=== PATIENT | male | born 1970 | race Caucasian/White ===

== ENCOUNTER → 2017-01-19 | Outpatient (CLI) | payer BC ==
[~2017-01-19] MED LIST: ASPI-113 PO; ASPI325T39 PO; ASPI325T60 PO; CYCL5TAB PO; LEVO150T PO; LEVO150T9 PO; LEVO175T PO; LEVO175T3 PO; LEVO50TA PO; LEVO75CA2 PO; METH4PAK PO; METO25TA3 PO; OMEP20TA PO; OMEP40CA41 PO; PANT40TA PO; SUCR1TAB PO; SYN100 PO; THY30 PO; ZNTT/150 PO
--- NOTE | 2017-01-19 10:54 | DIAGNOSTIC IMAGING REPORT ---
GI SERIES W/AIR ROUTINE CLINICAL HISTORY: Atypical CHEST Pain, light HEADEDNESS AND GERD COMPARISON STUDY: Abdomen and pelvis CT 11/29/2012. FLUOROSCOPY TIME: 3.3 minutes. 24 images submitted. FINDINGS: The patient swallowed barium without difficulty. The esophagus is normal in course and caliber. No hiatus hernia. No gastroesophageal reflux. No gastric ulcerations. The duodenal bulb and duodenal C sweep are within normal limits. Mild esophageal dysmotility. IMPRESSION: Mild esophageal dysmotility. Otherwise, normal upper GI series. Electronically signed by: Jerald Lee M.D. 01/19/2017 10:52 AM Dictated Date/Time: 01/19/2017 10:50 AM
== END | disposition home or self-care (01) ==
LOC: C.RAD 10:15
PROVIDERS: ATTEND Family Medicine
DX: R07.9 Chest pain, unspecified (principal); R42 Dizziness and giddiness; K21.9 Gastro-esophageal reflux disease without esophagitis

== ENCOUNTER 2017-01-24 14:17 | Observation (INO) | payer BC ==
[~2017-01-24] VITALS: Ht 185.4 cm; Wt 83.6 kg
[~2017-01-24 14:17] MED LIST changes: -ASPI325T39 PO; -ASPI325T60 PO; -CYCL5TAB PO; -LEVO150T PO; -LEVO150T9 PO; -LEVO175T PO; -LEVO175T3 PO; -LEVO50TA PO; -LEVO75CA2 PO; -METH4PAK PO; -METO25TA3 PO; -OMEP20TA PO; -OMEP40CA41 PO; -PANT40TA PO; -SUCR1TAB PO; -SYN100 PO; -THY30 PO; -ZNTT/150 PO
[2017-01-24 16:16] LABS: BASO % 0.4 %; BASO ABS # 0.03 K/uL (0-0.2); COMPLETE YES; EOS % 1.3 %; HEMATOCRIT 46.2 % (42-52); IG% 0.1 %; LYMPH % 27.3 %; LYMPH ABS # 2.23 K/uL (1.2-3.4); MEAN CELL VOLUME 86.5 fL (80-100); MEAN CORPUSCULAR HEMOGLOBIN 32.2 pg (25-34); MEAN CORPUSCULAR HGB CONC 37.2 g/dl (32-36); MEAN PLATELET VOLUME 11.2 fL (7.4-10.4); MONO % 2.4 %; NEUT % 68.5 %; PLATELET COUNT 190 K/uL (130-400); RED BLOOD COUNT 5.34 M/uL (4.7-6.1); WHITE BLOOD COUNT 8.17 K/uL (4.8-10.8)
--- NOTE | 2017-01-24 16:17 | DIAGNOSTIC IMAGING REPORT ---
CHEST ONE VIEW PORTABLE CLINICAL HISTORY: Chest pain. COMPARISON STUDY: Chest radiograph November 29, 2012. FINDINGS: Lung volumes are normal. Lungs are clear. There is no pneumothorax or pleural effusion. Cardiac size is normal. Mediastinal contours are normal. There is no evidence of pulmonary edema. IMPRESSION: No acute cardiopulmonary findings. Electronically signed by: Radu Gould M.D. 01/24/2017 4:16 PM Dictated Date/Time: 01/24/2017 4:14 PM
[2017-01-24 16:32] LABS: PARTIAL THROMBOPLASTIN RATIO 1.1; PROTHROMBIN TIME (PATIENT) 11.2 SECONDS (9.0-12.0)
[2017-01-24 16:34] LABS: ALT/SGPT 35 U/L (12-78); BLOOD UREA NITROGEN 10 mg/dl (7-18); BUN/CREATININE RATIO 8.3 (10-20); CALCIUM 9.1 mg/dl (8.5-10.1); CARBON DIOXIDE 25 mmol/L (21-32); CHLORIDE 104 mmol/L (98-107); GLUCOSE 89 mg/dl (70-99); POTASSIUM 3.9 mmol/L (3.5-5.1); SODIUM 137 mmol/L (136-145)
[2017-01-24] MEDS ORDERED: LEVO150T PO (16:38)
[2017-01-24] MEDS ORDERED: CYCL5TAB PO (16:38)
[2017-01-24] MEDS ORDERED: METO25TA3 PO (16:38)
[2017-01-24 16:45] LABS: ALKALINE PHOSPHATASE 92 U/L (45-117); AST/SGOT 21 U/L (15-37); CKMB/CK RATIO 0.8 (0-3.0)
[2017-01-24] MEDS ORDERED: ASPIRIN 81 MG CHEW PO STA (16:49)
--- NOTE | 2017-01-24 19:59 | History and Physical ---
History & Physical Date & Time of Service: Jan 24, 2017 at 18:39 Chief Complaint: Chest Pains, Irregular Heart/Disoriented, Dizzy Primary Care Physician: Devika Ballesteros PA-C History of Present Illness Source: patient, family Patient is a 46 year old male with a past medical history of hypothyroidism and palpitations that presents to the ED with a 2 week history of chest pain. 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 Since then he has had intermittent sharp anterior shoulder pain. 2 days after that incident, he driving home and he had chest pain accompanied by numbness over his nose and lips. He pulled over, got out of the truck and his heart started racing, felt like he was going to pass out. Needed to be held up by state police so he didn't pass out. From there he was taken to a hospital in [place] where they did a workup for acute chest pain including EKG, Chest Xray, and CT scan. Workup was negative and they discharged the patient on Tramadol for muscle pain (later switched to Flexeril by his PCP). Since this episode he has had this intermittent left sided chest and shoulder pain, with episodes of abdominal pain. He describes episodes of fatigue, dizziness, and feeling "like he's drunk". The episodes of chest pain usually last and hour and afterwards his shoulder stays sore and has a burning sensation. The chest pain is 7/10, sharp and radiates to his left arm. The patient has also no experienced any episodes of palpitations since being started on Toprolol XL by his PCP. Patient also explains that he has a similar episode of chest pain, palpitations, and dizziness 4 years ago that was worked up but resolved on his own. Family History No pertinent family history Social History Smoking Status: Current Every Day Smoker Occupational Status: employed Allergies Coded Allergies: Penicillins (Unverified Allergy, Unknown, ., 11/29/12) Home Medications Scheduled Aspirin Enteric Coated (Ecotrin Or Generic), 325 MG PO PRN UD Cyclobenzaprine Hcl (Flexeril), 5 MG PO PRN UD Levothyroxine Sodium (Synthroid), 150 MCG PO DAILY Metoprolol Succinate (Toprol Xl), 25 MG PO DAILY Review of Systems Constitutional: + fatigue, No chills, No fever, No weight loss ENT: No hearing loss, No tinnitus Respiratory: No cough, No shortness of breath, No sputum, No wheezing Cardiovascular: + chest pain, No edema, No palpitations Abdomen: + nausea, + pain, No GI bleeding, No constipation, No diarrhea, No vomiting Musculoskeletal: + joint pain (Left shoulder pain), + muscle pain Endocrine: + fatigue Integumentary: No rash Physical Exam Vital Signs Date Time Temp Pulse Resp B/P Pulse Ox O2 Delivery O2 Flow Rate FiO2 01/24/17 17:06 68 18 128/80 96 01/24/17 16:21 72 01/24/17 15:59 97 Room Air 01/24/17 15:53 74 20 137/86 98 Room Air 01/24/17 14:24 36.5 71 18 150/90 98 Room Air General Appearance: WD/WN, no apparent distress Respiratory/Chest: lungs clear, normal breath sounds, + pertinent finding ( Left sided tenderness to palpation of the chest) Cardiovascular: regular rate, rhythm, no edema, no gallop Abdomen/GI: normal bowel sounds, soft, + tenderness (LUQ tenderness), + mass ( questionable nodule/mass that is mobile and soft in LUQ) Back: normal inspection, no CVA tenderness Extremities/Musculoskelatal: normal inspection, no calf tenderness, + pertinent finding Neurologic/Psych: alert, oriented x 3 Diagnostics Laboratory Results Results Past 24 Hours Test 01/24/17 15:56 Range/Units White Blood Count 8.17 4.8-10.8 K/uL Red Blood Count 5.34 4.7-6.1 M/uL Hemoglobin 17.2 14.0-18.0 g/dL Hematocrit 46.2 42-52 % Mean Corpuscular Volume 86.5 80-100 fL Mean Corpuscular Hemoglobin 32.2 25-34 pg Mean Corpuscular Hemoglobin Concent 37.2 32-36 g/dl Platelet Count 190 130-400 K/uL Mean Platelet Volume 11.2 7.4-10.4 fL Neutrophils (%) (Auto) 68.5 % Lymphocytes (%) (Auto) 27.3 % Monocytes (%) (Auto) 2.4 % Eosinophils (%) (Auto) 1.3 % Basophils (%) (Auto) 0.4 % Neutrophils # (Auto) 5.59 1.4-6.5 K/uL Lymphocytes # (Auto) 2.23 1.2-3.4 K/uL Monocytes # (Auto) 0.20 0.11-0.59 K/uL Eosinophils # (Auto) 0.11 0-0.5 K/uL Basophils # (Auto) 0.03 0-0.2 K/uL RDW Standard Deviation 42.0 36.4-46.3 fL RDW Coefficient of Variation 13.3 11.5-14.5 % Immature Granulocyte % (Auto) 0.1 % Immature Granulocyte # (Auto) 0.01 0.00-0.02 K/uL Prothrombin Time 11.2 9.0-12.0 SECONDS Prothromb Time International Ratio 1.0 0.9-1.1 Activated Partial Thromboplast Time 29.8 21.0-31.0 SECONDS Partial Thromboplastin Ratio 1.1 D-Dimer < 190 0-500 ug/L FEU Sodium Level 137 136-145 mmol/L Potassium Level 3.9 3.5-5.1 mmol/L Chloride Level 104 98-107 mmol/L Carbon Dioxide Level 25 21-32 mmol/L Anion Gap 8.0 3-11 mmol/L Blood Urea Nitrogen 10 7-18 mg/dl Creatinine 1.20 0.60-1.40 mg/dl Est Creatinine Clear Calc Drug Dose 87.8 ml/min Estimated GFR () 84.1 Estimated GFR (Non- 72.6 BUN/Creatinine Ratio 8.3 10-20 Random Glucose 89 70-99 mg/dl Calcium Level 9.1 8.5-10.1 mg/dl Total Bilirubin 0.5 0.2-1 mg/dl Direct Bilirubin 0.1 0-0.2 mg/dl Aspartate Amino Transf (AST/SGOT) 21 15-37 U/L Alanine Aminotransferase (ALT/SGPT) 35 12-78 U/L Alkaline Phosphatase 92 45-117 U/L Total Creatine Kinase 233 39-308 U/L Creatine Kinase MB 1.9 0.5-3.6 ng/ml Creatine Kinase MB Ratio 0.8 0-3.0 Troponin I < 0.015 0-0.045 ng/ml Total Protein 8.0 6.4-8.2 gm/dl Albumin 4.4 3.4-5.0 gm/dl Lipase 75 73-393 U/L Thyroid Stimulating Hormone (TSH) 5.740 0.300-4.500 uIu/ml CXR normal Normal EKG Impression Assessment and Plan Patient is a 46 year old male that presents with a 2 week history of chest pain 1) Stable Angina - EKG show no acute abnormalities - Troponin wnl - CXR no acute abnormalities - Consult cardiology for possible cardiac stress echo tomorrow morning 2) Palpitations - Toprolol XL 25mg 3) Abdominal Pain - Patient was worked up in the past with Abdominal CT, EGD, Abdominal US with no acute abnormalities - Attempt to obtain records to review these imaging studies 4) Hypothyroidism - Synthroid 150 mcg 5) DVT - SCD Level of Care Telemetry Resuscitation Status FULL RESUSCITATION VTE Prophylaxis VTE Risk Assessment Done? Y/N: Yes Risk Level: Moderate Given or contraindicated: SCD's
[2017-01-24] MEDS ORDERED: ONDANSETRON INJ 2 MG/ML 2 ML VIAL IV PRN (20:00)
[2017-01-24] MEDS ORDERED: ACETAMINOPHEN 325 MG TAB PO PRN (20:00)
[2017-01-24 21:40] VITALS: BP 149/82; PULSE 71; TEMP 36.3; O2SAT 97; Ht 185.4 cm; Wt 83.6 kg
--- NOTE | 2017-01-24 21:54 | EMERGENCY ROOM VISIT NOTE ---
History Report prepared by Eleni: Maren De Santiago Under the Supervision of: Dr. Amaury Calloway M.D. First contact with patient: 15:52 Chief Complaint: CHEST PAIN Stated Complaint: CHEST PAINS, IRREGULAR HEART/DISORIENTED, DIZZY Nursing Triage Summary: Triage note: pt ambulatory to triage. Pt reports feeling lightheaded x 2 weeks and has had out pt testing. pt reports chest pain x 2 weeks. History of Present Illness The patient is a 46 year old male who presents to the Emergency Room with complaints of intermittent left sided chest pain that began two weeks ago. He currently rates his discomfort as a 9/10 in severity. The patient states that today he felt lightheaded for most of the day and additionally noticed left sided chest pain that lasted several hours. He states that the pain radiated to his left arm. The patient describes his discomfort as a burning pain. He additionally associates nausea, eye pain, nose numbness, and left sided abdominal pain with his symptoms today, noting a lump to the left side of his abdomen. The patient denies any shortness of breath or increased pain with breathing. He states that he has been being worked up for abdominal issues with his PCP. The patient states that he has had an x-ray, ultrasound, endoscopy, and an EKG done so far that have all bee normal. 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 Pt denies LOC, headache, fevers, chills, diaphoresis, visual changes, neck pain, breathing difficulties, vomiting, abdominal pain, back pain, melena, hematochezia, urinary symptoms, weakness, lymphadenopathy, rash, or other complaints. Source of History: patient Onset: two weeks ago Position: chest (left) Symptom Intensity: 9/10 Quality: burning Timing: intermittent Associated Symptoms: + abdominal pain, + nausea, No SOB Note: Associated Symptoms: lightheadedness, eye pain, nose numbness Review of Systems See HPI for pertinent positives and negatives. A total of ten systems were reviewed and were otherwise negative. Past Medical & Surgical Medical Problems: (1) Chest pain (2) chest pain (3) Stomach problems Family History No pertinent family history Social History Smoking Status: Current Every Day Smoker Alcohol Use: none Marital Status: single Housing Status: lives with family Occupation Status: employed Current/Historical Medications Scheduled Aspirin Enteric Coated (Ecotrin Or Generic), 325 MG PO PRN UD Cyclobenzaprine Hcl (Flexeril), 5 MG PO PRN UD Levothyroxine Sodium (Synthroid), 150 MCG PO DAILY Metoprolol Succinate (Toprol Xl), 25 MG PO DAILY Allergies Coded Allergies: Penicillins (Unverified Allergy, Unknown, ., 11/29/12) Physical Exam Vital Signs Date Time Temp Pulse Resp B/P Pulse Ox O2 Delivery O2 Flow Rate FiO2 01/24/17 20:49 63 01/24/17 20:46 80 24 105/78 98 Room Air 01/24/17 19:00 73 21 142/104 97 Room Air 01/24/17 17:06 68 18 128/80 96 01/24/17 16:21 72 01/24/17 15:59 97 Room Air 01/24/17 15:53 74 20 137/86 98 Room Air 01/24/17 14:24 36.5 71 18 150/90 98 Room Air Physical Exam GENERAL: Awake, alert, well-appearing, in no distress HENT: Normocephalic, atraumatic. Oropharynx unremarkable. EYES: Normal conjunctiva. Sclera non-icteric. NECK: Supple. No nuchal rigidity. FROM. No JVD. RESPIRATORY: Clear to auscultation. CARDIAC: Regular rate, normal rhythm. Extremities warm and well perfused. Pulses equal. ABDOMEN: Epigastric abdominal tenderness to palpation. Soft, non-distended. No rebound or guarding. No masses. RECTAL: Deferred. MUSCULOSKELETAL: Chest examination reveals no tenderness. The back is symmetrical on inspection without obvious abnormality. There is no CVA tenderness to palpation. No joint edema. LOWER EXTREMITIES: Calves are equal size bilaterally and non-tender. No edema. No discoloration. NEURO: Normal sensorium. No sensory or motor deficits noted. SKIN: No rash or jaundice noted. Medical Decision & Procedures ER Provider Diagnostic Interpretation: X ray results as stated below per my interpretation and radiologist interpretation. Other radiology results as stated below per my review and radiologist interpretation CHEST ONE VIEW PORTABLE CLINICAL HISTORY: Chest pain. COMPARISON STUDY: Chest radiograph November 29, 2012. FINDINGS: Lung volumes are normal. Lungs are clear. There is no pneumothorax or pleural effusion. Cardiac size is normal. Mediastinal contours are normal. There is no evidence of pulmonary edema. IMPRESSION: No acute cardiopulmonary findings. Electronically signed by: Radu Gould M.D. 01/24/2017 4:16 PM Dictated Date/Time: 01/24/2017 4:14 PM Laboratory Results 01/24/17 15:56 Red Blood Count 5.34, Mean Corpuscular Volume 86.5, Mean Corpuscular Hemoglobin 32.2, Mean Corpuscular Hemoglobin Concent 37.2, Mean Platelet Volume 11.2, Neutrophils (%) (Auto) 68.5, Lymphocytes (%) (Auto) 27.3, Monocytes (%) (Auto) 2.4, Eosinophils (%) (Auto) 1.3, Basophils (%) (Auto) 0.4, Neutrophils # (Auto) 5.59, Lymphocytes # (Auto) 2.23, Monocytes # (Auto) 0.20, Eosinophils # (Auto) 0.11, Basophils # (Auto) 0.03 01/24/17 15:56 Test 01/24/17 15:56 White Blood Count 8.17 K/uL (4.8-10.8) Red Blood Count 5.34 M/uL (4.7-6.1) Hemoglobin 17.2 g/dL (14.0-18.0) Hematocrit 46.2 % (42-52) Mean Corpuscular Volume 86.5 fL (80-100) Mean Corpuscular Hemoglobin 32.2 pg (25-34) Mean Corpuscular Hemoglobin Concent 37.2 g/dl (32-36) Platelet Count 190 K/uL (130-400) Mean Platelet Volume 11.2 fL (7.4-10.4) Neutrophils (%) (Auto) 68.5 % Lymphocytes (%) (Auto) 27.3 % Monocytes (%) (Auto) 2.4 % Eosinophils (%) (Auto) 1.3 % Basophils (%) (Auto) 0.4 % Neutrophils # (Auto) 5.59 K/uL (1.4-6.5) Lymphocytes # (Auto) 2.23 K/uL (1.2-3.4) Monocytes # (Auto) 0.20 K/uL (0.11-0.59) Eosinophils # (Auto) 0.11 K/uL (0-0.5) Basophils # (Auto) 0.03 K/uL (0-0.2) RDW Standard Deviation 42.0 fL (36.4-46.3) RDW Coefficient of Variation 13.3 % (11.5-14.5) Immature Granulocyte % (Auto) 0.1 % Immature Granulocyte # (Auto) 0.01 K/uL (0.00-0.02) Prothrombin Time 11.2 SECONDS (9.0-12.0) Prothromb Time International Ratio 1.0 (0.9-1.1) Activated Partial Thromboplast Time 29.8 SECONDS (21.0-31.0) Partial Thromboplastin Ratio 1.1 D-Dimer < 190 ug/L FEU (0-500) Anion Gap 8.0 mmol/L (3-11) Est Creatinine Clear Calc Drug Dose 87.8 ml/min Estimated GFR () 84.1 Estimated GFR (Non- 72.6 BUN/Creatinine Ratio 8.3 (10-20) Calcium Level 9.1 mg/dl (8.5-10.1) Total Bilirubin 0.5 mg/dl (0.2-1) Direct Bilirubin 0.1 mg/dl (0-0.2) Aspartate Amino Transf (AST/SGOT) 21 U/L (15-37) Alanine Aminotransferase (ALT/SGPT) 35 U/L (12-78) Alkaline Phosphatase 92 U/L (45-117) Total Creatine Kinase 233 U/L (39-308) Creatine Kinase MB 1.9 ng/ml (0.5-3.6) Creatine Kinase MB Ratio 0.8 (0-3.0) Troponin I < 0.015 ng/ml (0-0.045) Total Protein 8.0 gm/dl (6.4-8.2) Albumin 4.4 gm/dl (3.4-5.0) Lipase 75 U/L (73-393) Thyroid Stimulating Hormone (TSH) 5.740 uIu/ml (0.300-4.500) Laboratory results reviewed by me Medications Administered Medications (Trade) Dose Ordered Sig/Jaja Route Start Time Stop Time Status Last Admin Dose Admin Aspirin (Aspirin Chew) 324 mg NOW STAT PO 01/24/17 16:49 01/24/17 16:50 DC 01/24/17 17:05 324 MG ECG Indication: chest pain Rate (beats per minute): 66 Rhythm: normal sinus Findings: no acute ischemic change, no ectopy ED Course 1606: The patient was evaluated in room B8. A complete history and physical exam was performed. 164: Ordered Aspirin 324 mg PO. 165: I reevaluated the patient and he is resting comfortably. I discussed the exam findings with him and I discussed the treatment plan. He verbalized complete understanding and agreement. He is going to be evaluated for further treatment. 1705: I discussed the patients case with CORINNA Torres. He is going to evaluate the patient for further treatment. Medical Decision Triage Nursing notes reviewed. The patient's presentation and history were concerning for chest pain. Etiologies such as cardiac ischemia, aortic dissection, pulmonary embolism, pneumonia, pneumothorax, musculoskeletal, infections, gastrointestinal, as well as others were entertained. The patient was evaluated. Clinically he was doing well. He was not having active pain. His history was concerning given the chest symptoms. ECG was unremarkable. CBC, chemistry panel, LFTs, lipase and cardiac markers were negative. Chest x-ray was negative. D-dimer was performed and was negative. Urine the situation further evaluation for his chest pain will be necessary. Consultation was made with internal medicine. The patient was evaluated in the Emergency Room for further management. The chart was completed utilizing [employer] Speech voice recognition software. Grammatical errors, random word insertions, pronoun errors, and incomplete sentences are an occasional consequence of this system due to software limitations, ambient noise, and hardware issues. Any formal questions or concerns about the content, text, or information contained within the body of this dictation should be directly addressed to the physician for clarification. Consults Time Called: 170 Consulting Physician: CORINNA Torres Returned Call: 1705 I discussed the patients case with CORINNA Torres. He is going to evaluate the patient for further treatment. Impression Primary Impression: Left sided chest pain Scribe Attestation The scribe's documentation has been prepared under my direction and personally reviewed by me in its entirety. I confirm that the note above accurately reflects all work, treatment, procedures, and medical decision making performed by me. Departure Information Dispostion Being Evaluated By Hospitalist Devika Ocasio PA-C (PCP)
[2017-01-24] MEDS ORDERED: IV FLUIDS COMPLETED PRN (23:15)
[2017-01-24 23:55] VITALS: BP 100/62; PULSE 59; TEMP 36.4; O2SAT 96
[2017-01-25 03:29] VITALS: BP 115/73; PULSE 54; TEMP 36.5; O2SAT 96
[2017-01-25 04:21] LABS: CHOLESTEROL 187 mg/dl (0-200); CHOLESTEROL/HDL RATIO 9.4; CKMB/CK RATIO 0.7 (0-3.0); HDL CHOLESTEROL 20 mg/dl; LDL CHOLESTEROL CALCULATED 121 mg/dl; TRIGLYCERIDES 231 mg/dl (0-150); VERY LOW DENSITY LIPOPROT CALC 46 mg/dl
[2017-01-25] MEDS ORDERED: LEVOTHYROXINE 150 MCG TAB PO SCH (06:30)
[2017-01-25 08:00] VITALS: BP 102/65; PULSE 58; TEMP 36.9; O2SAT 99
[2017-01-25] MEDS ORDERED: METOPROLOL SUCC 25MG EXT REL TAB PO SCH (09:00)
[2017-01-25] MEDS ORDERED: PERFLUTREN LIPID MICROSPHERE (DEFINITY) IV ONE (10:32)
[2017-01-25 11:16] VITALS: BP 139/82; PULSE 68; TEMP 36.4; O2SAT 99
--- NOTE | 2017-01-25 11:47 | EXERCISE STRESS ECHO ---
*NOTICE TO RECEIVING CONSTITUTION PARTY AGENCY This information is strictly Confidential and protected under [place] law. [place] law prohibits you from making any further disclosure of this information unless further disclosure is expressly permitted by the written consent of the person to whom it pertains or is authorized by law. A general authorization for the release of medical or other information is not sufficient for this purpose. Hospital accepts no responsibility if the information is made available to any other person, INCLUDING THE PATIENT. Interpretation Summary * Name: YOLETTE DONOVAN Study Date: 01/25/2017 08:44 AM BP: 118/74 mmHg * Patient Location: [facility]\S\N278\S\2 HR: 57 * : 1970 (M/d/yyyy) Gender: Male Height: 73 in * Age: 46 yrs Ethnicity: [place] Weight: 190 lb * Ordering Physician: Domenico Do * Performed By: [facility] * * Reason For Study: CHEST PAIN * BSA: 2.1 m2 * No significant valvular abnormalities. * This was a normal stress echocardiogram. * The stress ECG response was normal * RESTING STUDY: Normal left ventricular cavity size, myocardial thickness, wall motion, and systolic function. Procedure Details * ECHOEX, CPT #85069 * ECHO DOPPLER, CPT #76182 * ECHO COLOR FLOW, CPT #73670 * A contrast injection of Definity was performed to improve assessment of LV function. * Contrast was injected into an intravenous site in the right arm. * One vial of Definity ultrasound contrast was diluted in normal saline to a total volume of 10 ml. A total of '5.5' ml of solution was administered during imaging. * Lot # [id number] of Definity utilized for procedure. * Expiration date 12/14. * The attending nurse who injected the contrast agent was VEDA GIRALDO RN. Left Ventricle * The left ventricle is normal in size. * There is normal left ventricular wall thickness. * Ejection Fraction = 55-60%. * The left ventricular ejection fraction increases normally with stress. The left ventricular end-systolic cavity size reduces post-stress (normal response). The left ventricular wall motion with stress is normal. * Resting wall motion: Normal. Stress wall motion: Appropriate increase in Left ventricular systolic function and decrease in cavity size. No stress induced segmental wall motion abnormalities. Right Ventricle * The right ventricle is normal in size and function. Atria * The left atrial size is normal. Mitral Valve * The mitral valve is normal. * There is no mitral valve stenosis. * There is trace mitral regurgitation. Tricuspid Valve * The tricuspid valve is normal. * There is no tricuspid stenosis. * Right ventricular systolic pressure is normal. * There is trace tricuspid regurgitation. Aortic Valve * The aortic valve is trileaflet. * The aortic valve opens well. * Aortic stenosis is absent. * No aortic regurgitation is present. Pulmonic Valve * The pulmonic valve leaflets are thin and pliable; valve motion is normal. * Pulmonic stenosis is absent. * Trace pulmonic valvular regurgitation. Great Vessels * The aortic root is normal size. Pericardium * There is no pericardial effusion. Stress Parameters * Normal baseline electrocardiogram. * The stress ECG response was normal * Rest heart rate was '57' BPM. * Rest blood pressure was '118/74' * Maximum heart rate achieved was 150 bpm. * Maximum heart rate was 85 % of maximum age-predicted heart rate. * Maximum blood pressure was '187/76' * Total exercise time was '10:41' * Maximum exercise MET level achieved was '12.80' METS * Maximum treadmill speed was '4.20' miles per hour. * Maximum treadmill elevation was '16.00'% grade. * Exercise was terminated due to 'fatigue' * Normal blood pressure response to exercise. * No symptoms during exercise. MMode 2D Measurements and Calculations IVSd 0.99 cm IVSs 1.3 cm LVIDd 4.3 cm LVIDs 2.9 cm LVPWd 0.89 cm LVPWs 1.5 cm IVS/LVPW 1.1 FS 32.5 % EDV(Teich) 84.8 ml ESV(Teich) 33.0 ml EF(Teich) 61.1 % EDV(cubed) 81.6 ml ESV(cubed) 25.1 ml EF(cubed) 69.2 % % IVS thick 29.0 % % LVPW thick 68.2 % LV mass(C)d 133.0 grams LV mass(C)dI 63.2 grams/m\S\2 LV mass(C)s 134.4 grams LV mass(C)sI 63.8 grams/m\S\2 CO(Teich) 2.8 l/min CI(Teich) 1.4 l/min/m\S\2 SV(Teich) 51.8 ml SI(Teich) 24.6 ml/m\S\2 CO(cubed) 3.1 l/min CI(cubed) 1.5 l/min/m\S\2 SV(cubed) 56.5 ml SI(cubed) 26.8 ml/m\S\2 Ao root diam 3.7 cm Ao root area 10.7 cm\S\2 ACS 1.5 cm LA dimension 2.9 cm asc Aorta Diam 2.7 cm LA/Ao 0.80 LVOT diam 1.9 cm LVOT area 3.0 cm\S\2 LVAd ap4 27.3 cm\S\2 LVLd ap4 7.8 cm EDV(MOD-sp4) 78.0 ml LVAs ap4 15.6 cm\S\2 LVLs ap4 6.4 cm ESV(MOD-sp4) 32.0 ml EF(MOD-sp4) 59.0 % LVAd ap2 26.7 cm\S\2 LVLd ap2 8.3 cm EDV(MOD-sp2) 75.0 ml LVAs ap2 14.8 cm\S\2 LVLs ap2 6.4 cm ESV(MOD-sp2) 30.0 ml EF(MOD-sp2) 60.0 % CO(MOD-sp4) 2.5 l/min CI(MOD-sp4) 1.2 l/min/m\S\2 SV(MOD-sp4) 46.0 ml SI(MOD-sp4) 21.8 ml/m\S\2 CO(MOD-sp2) 2.5 l/min CI(MOD-sp2) 1.2 l/min/m\S\2 SV(MOD-sp2) 45.0 ml SI(MOD-sp2) 21.4 ml/m\S\2 Doppler Measurements and Calculations MV E max jud 95.3 cm/sec MV A max jud 49.0 cm/sec MV E/A 1.9 MV dec time 0.20 sec Ao V2 max 130.3 cm/sec Ao max PG 6.8 mmHg Ao max PG (full) 2.2 mmHg KYUNG(V,A) 2.4 cm\S\2 KYUNG(V,D) 2.4 cm\S\2 LV V1 max PG 4.6 mmHg LV V1 mean PG 2.2 mmHg LV V1 max 107.3 cm/sec LV V1 mean 66.8 cm/sec LV V1 VTI 21.4 cm SV(LVOT) 63.4 ml SI(LVOT) 30.1 ml/m\S\2 PA V2 max 73.4 cm/sec PA max PG 2.2 mmHg PI end-d jud 95.0 cm/sec TR max jud 226.5 cm/sec
[2017-01-25] MEDS ORDERED: LEVO150T PO (12:32)
[2017-01-25] MEDS ORDERED: OMEP40CA41 PO (12:32)
[2017-01-25] MEDS ORDERED: METH4PAK PO (12:32)
[2017-01-25] MEDS ORDERED: LEVO175T PO (12:32)
--- NOTE | 2017-01-25 12:40 | Discharge Instructions ---
Discharge Instructions Admission Reason for Admission: Chest Pain Discharge Discharge Diagnosis / Problem: Chest and left shoulder pain Discharge Goals Goal(s): Improve disease control, Diagnostic testing, Therapeutic intervention Activity Recommendations Activity Limitations: resume your previous activity Lifting Limitations: gradually increase as tolerated Exercise/Sports Limitations: gradually increase as tolerated Shower/Bathe: no limitations . Instructions / Follow-Up Instructions / Follow-Up You were admitted with left sided chest pain and left shoulder/arm pain. Your blood work and cardiac stress test were normal and showed that you did not have a heart attack. It is suspected that your symptoms are coming from a cervical radiculitis or pinched nerve in the left side of your neck. You are prescribed a Medrol Dose pack of steroids to be taken along with Prilosec to protect your stomach lining from inflammation. The steroids hopefully should help take away this pain. Please follow up with your PCP within 1 week. Please keep your follow up appt with GI for tomorrow for follow up on your right sided abdominal pain but I do believe this is a muscular strain as well. As for your left sided abdominal lump, it may be a lipoma although the reports from the CT scan you had done at the hospital in [place] are not available to me for review. Please follow up with your PCP on this as well and you may need to see a General Surgeon about that issue. Your blood pressure was elevated when you first came in to the hospital but came down to a normal level shortly afterward. Finally, you should quit smoking immediately as discussed in the hospital. Current Hospital Diet Patient's current hospital diet: Regular Diet, AHA Diet (Heart Healthy) Discharge Diet Recommended Diet: AHA Diet (Heart Healthy) Procedures Procedures Performed: Stress ECHOCARDIOGRAM Chest xray Pending Studies Studies pending at discharge: no Laboratory Results Lipid Panel Test 01/25/17 03:27 Range/Units Triglycerides Level 231 H 0-150 mg/dl Cholesterol Level 187 0-200 mg/dl HDL Cholesterol 20 mg/dl Cholesterol/HDL Ratio 9.4 LDL Cholesterol, Calculated 121 mg/dl Medical Emergencies . Who to Call and When: Medical Emergencies: If at any time you feel your situation is an emergency, please call 911 immediately. . Non-Emergent Contact Non-Emergency issues call your: Primary Care Provider Call Non-Emergent contact if: you have a fever, your pain is not controlled, your pain is worsening, your pain is unusual for you, your pain is concerning you, you have any medication questions if you have worsening symptoms from previous or weakness, worsening chest pains , develop shortness of breath, headache, or numbness, or for any other acute concerns--> please call your PCP or go to the ER immediately. . . "Provider Documentation" section prepared by Marcela Parham. VTE Core Measure Inpt VTE Proph given/why not?: SCD's
[2017-01-25 13:04] VITALS: BP 139/82; PULSE 68; TEMP 36.4; O2SAT 99
[2017-01-25 13:43] LABS: CKMB/CK RATIO 0.8 (0-3.0)
--- NOTE | 2017-01-25 23:17 | Discharge Summary ---
Discharge Summary Date of Service Jan 25, 2017. Discharge Summary Admission Date: Jan 24, 2017 at 21:23 Discharge Date: Jan 25, 2017 Discharge Disposition: Home Principal Diagnosis: Chest pain Problems/Secondary Diagnoses: Suspected cervical radiculitis GERD Palpitations RUQ Abdominal Pain-likely MSK in nature Suspected lipoma left abdominal wall Hypothyroidism Tobacco abuse-smoking Procedures: Stress ECHO: No significant valvular abnormalities. * This was a normal stress echocardiogram. * The stress ECG response was normal * RESTING STUDY: Normal left ventricular cavity size, myocardial thickness, wall motion, and systolic function. Left Ventricle * The left ventricle is normal in size. * There is normal left ventricular wall thickness. * Ejection Fraction = 55-60%. * The left ventricular ejection fraction increases normally with stress. The left ventricular end-systolic cavity size reduces post-stress (normal response). The left ventricular wall motion with stress is normal. * Resting wall motion: Normal. Stress wall motion: Appropriate increase in Left ventricular systolic function and decrease in cavity size. No stress induced segmental wall motion abnormalities. Right Ventricle * The right ventricle is normal in size and function. Atria * The left atrial size is normal. Mitral Valve * The mitral valve is normal. * There is no mitral valve stenosis. * There is trace mitral regurgitation. Tricuspid Valve * The tricuspid valve is normal. * There is no tricuspid stenosis. * Right ventricular systolic pressure is normal. * There is trace tricuspid regurgitation. Aortic Valve * The aortic valve is trileaflet. * The aortic valve opens well. * Aortic stenosis is absent. * No aortic regurgitation is present. Pulmonic Valve * The pulmonic valve leaflets are thin and pliable; valve motion is normal. * Pulmonic stenosis is absent. * Trace pulmonic valvular regurgitation. Great Vessels * The aortic root is normal size. Pericardium * There is no pericardial effusion. Stress Parameters * Normal baseline electrocardiogram. * The stress ECG response was normal * Rest heart rate was '57' BPM. * Rest blood pressure was '118/74' * Maximum heart rate achieved was 150 bpm. * Maximum heart rate was 85 % of maximum age-predicted heart rate. * Maximum blood pressure was '187/76' * Total exercise time was '10:41' * Maximum exercise MET level achieved was '12.80' METS * Maximum treadmill speed was '4.20' miles per hour. * Maximum treadmill elevation was '16.00'% grade. * Exercise was terminated due to 'fatigue' * Normal blood pressure response to exercise. * No symptoms during exercise. CHEST ONE VIEW PORTABLE CLINICAL HISTORY: Chest pain. COMPARISON STUDY: Chest radiograph November 29, 2012. FINDINGS: Lung volumes are normal. Lungs are clear. There is no pneumothorax or pleural effusion. Cardiac size is normal. Mediastinal contours are normal. There is no evidence of pulmonary edema. IMPRESSION: No acute cardiopulmonary findings. Consultations: None Medication Reconciliation New Medications: Levothyroxine Sodium (Synthroid) 175 Mcg Tab 1 TAB PO Q2D for 30 Days, #15 TAB 5 Refills alternating with 150 mcg tab Methylprednisolone (Medrol Dosepak) 4 Mg Go 1 PKT PO UD for 6 Days, #1 PKT Omeprazole (Prilosec) 40 Mg Cap 1 CAP PO DAILY for 30 Days, #30 CAP 0 Refills Changed Medications: Levothyroxine Sodium (Synthroid) 150 Mcg Tab 150 MCG PO Q2D for 30 Days, TAB (Changed from: DAILY) alternating with the 175mcg tab Continued Medications: Aspirin Enteric Coated (Ecotrin Or Generic) 325 Mg Ectab 325 MG PO PRN UD, TAB Cyclobenzaprine Hcl (Flexeril) 5 Mg Tab 5 MG PO PRN UD for Muscle Spasms, TAB PRN Metoprolol Succinate (Toprol Xl) 25 Mg Tabcr 25 MG PO DAILY, #30 TAB Referrals At Discharge Follow up Referrals: Family Practice Referral - Within 1 Week with Devika Ballesteros PA-C Discharge Exam Pt did not have a recurrence of his left sided chest pain with left sided neck and shoulder and triceps pain while admitted. Pain is atypical for cardiac CP and stress ECHO normal. 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 He has an ongoing eval for his RUQ pain, LUQ US done yesterday for left sided lump was negative but seems to be a lipoma on exam. RUQ pain is more painful with doing a sit-up and therefore is of a muscular strain in nature. He does however have an appt with GI tomorrow as an outpatient. UGI series showed esophageal dysmotility on outpt study and I did not have outside CT abd/pel from hospitalization 2 weeks ago for review. He states he has tried to quit smoking many times but always restarts and is currently smoking 2 PPD. Review of Systems: Constitutional: No chills, No fever Eyes: No problem reported ENT: No problem reported Respiratory: No shortness of breath Cardiovascular: No chest pain, No edema, No palpitations (none since starting Toprol XL and no events on tele here) Abdomen: + pain (as per above), No constipation, No diarrhea, No nausea, No vomiting Musculoskeletal: + joint pain (left shoulder) Genitourinary - Male: No problem reported Neurologic: No numbness/tingling, No weakness Psychiatric: No anxiety Endocrine: No problem reported Hematologic / Lymphatic: No problem reported Integumentary: No rash Physical Exam: General Appearance: WD/WN, no apparent distress Eyes: normal inspection, EOMI, sclerae normal ENT: hearing grossly normal, pharynx normal Neck: no adenopathy, thyroid normal, no JVD, trachea midline, + pertinent finding (+TTP over left side of neck, decreased ROM with turning head to left, + pain with application of axial pressure) Respiratory/Chest: lungs clear, normal breath sounds, no respiratory distress, no accessory muscle use Cardiovascular: regular rate, rhythm, no edema, no gallop, no JVD, no murmur , normal peripheral pulses Abdomen / GI: normal bowel sounds, soft, no organomegaly, no pulsatile mass , + pertinent finding (subtle 3 cm palpable mass left abd wall c/w possible lipoma; +TTP right abd wall worse with sit up performed during exam, no hernias palpated) Extremities: normal inspection, no calf tenderness, no pedal edema, + pertinent finding (Left shoulder with decreased ROM with flexion to 160 degrees , +TTP over long head biceps, +Hawkin's impingement sign, strength 5/5 throughout UEs bilat) Neurologic/Psychiatric: alert, normal mood/affect, oriented x 3 Skin: normal color, warm/dry, no rash Hospital Course Patient is a 46 year old male with a past medical history of hypothyroidism and palpitations that presents to the ED with a 2 week history of chest pain. 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 Since then he has had intermittent sharp anterior shoulder pain. 2 days after that incident, he driving home and he had chest pain accompanied by numbness over his nose and lips. He pulled over, got out of the truck and his heart started racing, felt like he was going to pass out. Needed to be held up by state police so he didn't pass out. From there he was taken to a hospital in [place] where they did a workup for acute chest pain including EKG, Chest Xray, and CT scan. Workup was negative as per pt and his and they discharged the patient on Tramadol for muscle pain (later switched to Flexeril by his PCP). Since this episode he has had this intermittent left sided chest and shoulder pain, with episodes of abdominal pain. He describes episodes of fatigue, dizziness, and feeling "like he's drunk" which correlate with his left shoulder and triceps pain and when his BP is elevated at 180 systolic as per . The episodes of chest pain usually last and hour and afterwards his shoulder stays sore and has a burning sensation. The chest pain is 7/10, sharp and radiates to his left arm. The patient has also no experienced any episodes of palpitations since being started on Toprolol XL by his PCP. Patient also explains that he has a similar episode of chest pain, palpitations, and dizziness 4 years ago that was worked up but resolved on his own. Chest pain/Left shoulder pain--> serial cardiac markers negative, stress ECHO normal, no events on tele, CXR normal. Likely cervical radiculitis given positional nature and tenderness on exam. -trial of Medrol dose pack with PPI for stomach protection -f/u with PCP and may need MRI C-spine Palpitations, HTN- BP elevated with pain and may have caused some brief hypertensive encephalopathy given the confusion episodes-now resolved - continue Toprolol XL 25mg Abdominal Pain-right side MSK in nature, left side with possible lipoma on exam - Patient was worked up in the past with Abdominal CT, UGI series, Abdominal US with no acute abnormalities - may need referral to Gen Surgery to see about lipoma removal vs further imaging perhaps with an MRI as US not great for looking for lipomas Hypothyroidism-TSH here 5.7 - Synthroid 150 mcg alt with 175 recommended upon discharge -needs repeat TSH in 4-6 weeks Tobacco abuse-counseled extensively on importance of quitting and ways to do so. He may try nicotine lozenges and gum as patches don't stick to him well and Chantix caused nausea, buproprion caused headaches Total Time Spent: Greater than 30 minutes This includes examination of the patient, discharge planning, medication reconciliation, and communication with other providers. Discharge Instructions Please refer to the electronic Patient Visit Report (Discharge Instructions) for additional information. Follow-Up PCP in 1 week GI in 1 day as scheduled Additional Copies To Devika Ballesteros PA-C
[2017-02-16] MEDS ORDERED: SUCR1TAB PO (08:25)
[2017-02-16] MEDS ORDERED: OMEP20TA PO (08:25)
[2017-02-16] MEDS ORDERED: LEVO175T3 PO (08:25)
[2017-02-16] MEDS ORDERED: LEVO150T9 PO (08:26)
[2017-05-23] MEDS ORDERED: ASPI325T39 PO (10:40)
[2017-05-23] MEDS ORDERED: LEVO75CA2 PO (10:40)
== END 2017-01-25 13:25 | disposition home or self-care (01) ==
LOC: ENRESERVDT → CANRESERV → ENRESERVTM → C.EDB 14:19 → C.MED 21:23
PROVIDERS: ADMIT Student in an Organized Health Care Education/Training Program; ATTEND Family Medicine
DX: R07.9 Chest pain, unspecified (principal); K21.9 Gastro-esophageal reflux disease without esophagitis; R00.2 Palpitations; R10.11 Right upper quadrant pain; F17.200 Nicotine dependence, unspecified, uncomplicated; E03.9 Hypothyroidism, unspecified; I10 Essential (primary) hypertension; M25.512 Pain in left shoulder

== ENCOUNTER → 2017-01-24 | Outpatient (CLI) | payer BC ==
--- NOTE | 2017-01-24 10:14 | DIAGNOSTIC IMAGING REPORT ---
LEFT UPPER QUADRANT ULTRASOUND HISTORY: Left upper quadrant abdominal pain. Evaluate for abdominal wall hernia. COMPARISON: CT of the abdomen and pelvis November 29, 2012. TECHNIQUE: Sonography of the left upper quadrant, including the abdominal wall was performed. FINDINGS: No left upper quadrant abdominal hernia was identified. There was no ascites with the left upper quadrant. The size of the spleen was normal. No left hydronephrosis was noted. No mass or fluid collection was identified within the left upper quadrant by sonography. IMPRESSION: 1. No left upper quadrant abdominal wall hernia identified. 2. No left upper quadrant abnormality by sonography. Electronically signed by: Radu Gould M.D. 01/24/2017 10:13 AM Dictated Date/Time: 01/24/2017 10:11 AM
== END | disposition home or self-care (01) ==
LOC: C.ULTR 09:28
PROVIDERS: ATTEND Family Medicine
DX: R10.816 Epigastric abdominal tenderness (principal)

== ENCOUNTER → 2017-02-03 | Outpatient (CLI) | payer BC ==
[~2017-02-03] MED LIST changes: +ASPI325T39 PO; +ASPI325T60 PO; +CYCL5TAB PO; +LEVO150T PO; +LEVO150T9 PO; +LEVO175T PO; +LEVO175T3 PO; +LEVO50TA PO; +LEVO75CA2 PO; +METO25TA3 PO; +OMEP20TA PO; +OMEP40CA41 PO; +PANT40TA PO; +SUCR1TAB PO; +SYN100 PO; +THY30 PO; +ZNTT/150 PO
--- NOTE | 2017-02-03 11:54 | DIAGNOSTIC IMAGING REPORT ---
SOFT TISSUE NECK TECHNIQUE: AP and lateral soft tissue neck FINDINGS: Normal prevertebral soft tissues. No distention of the hypopharynx. The epiglottis is normal. Calcification of the carotid vasculature bilaterally IMPRESSION: Normal study. Calcification of the carotid vasculature Electronically signed by: Luis Daniel Peter M.D. 02/03/2017 11:53 AM Dictated Date/Time: 02/03/2017 11:53 AM
--- NOTE | 2017-02-03 12:24 | DIAGNOSTIC IMAGING REPORT ---
ULTRASOUND OF THE CAROTID ARTERIES CLINICAL HISTORY: Lightheadedness. Visual changes. COMPARISON STUDY: No priors. TECHNIQUE: Real-time, grayscale, and color Doppler sonography of the carotid arteries is performed. Images are reviewed in the transverse and longitudinal planes. FINDINGS: Blood pressure in the right arm measures 150/92 and blood pressure in the left arm measures 134/80. The carotid arteries are patent bilaterally and demonstrate antegrade flow. There is are scattered foci of atherosclerotic plaque seen bilaterally. Normal doppler arterial waveforms are seen throughout. Velocity measurements are listed below. Common carotid peak systolic velocity (cm/sec): RIGHT: 86 LEFT: 125 ICA proximal peak systolic velocity (cm/sec): RIGHT: 47 LEFT: 92 ICA mid peak systolic velocity (cm/sec): RIGHT: 58 LEFT: 79 ICA distal peak systolic velocity (cm/sec): RIGHT: 49 LEFT: 41 ICA/CC peak systolic ratio: RIGHT: 0.7 LEFT: 0.7 Antegrade flow was shown in the vertebral arteries. The external carotid arteries are patent. IMPRESSION: 1. There is no sonographic evidence of hemodynamically significant stenosis in the right or left carotid arterial system. 2. Antegrade flow is shown in the vertebral arteries. Electronically signed by: Ras Cisneros M.D. 02/03/2017 12:23 PM Dictated Date/Time: 02/03/2017 12:21 PM
== END | disposition home or self-care (01) ==
LOC: C.ULTR 11:30
PROVIDERS: ATTEND Family Medicine
DX: M79.602 Pain in left arm (principal); M43.6 Torticollis; R20.9 Unspecified disturbances of skin sensation; R42 Dizziness and giddiness; H53.9 Unspecified visual disturbance

== ENCOUNTER → 2017-02-17 | Day surgery (SDC) | payer BC ==
[2017-02-16 08:28] VITALS: Ht 185.4 cm; Wt 87.7 kg
[~2017-02-17] VITALS: Ht 185.4 cm; Wt 87.7 kg
[~2017-02-17] MED LIST changes: -ASPI-113 PO; -LEVO150T PO; -LEVO175T PO; +LIDOCAINE HCL 2% 2 ML VIAL (20MG/ML) ONE; +MIDAZOLAM HCL 1 MG/ML 2ML VIAL ONE; -OMEP40CA41 PO; +ONDANSETRON INJ 2 MG/ML 2 ML VIAL ONE; +PROPOFOL IV EMULSION 10 MG/ML 20 ML VIAL IV ONE; +SODIUM CHLORIDE 0.9% 500ML 500 ML IV ONE
--- NOTE | 2017-02-17 11:41 | Endo History and Physical ---
History & Physical Date of Service: Feb 17, 2017. Chief Complaint: reflux, chest pain Referring Physician: Devika DANIEL History of Present Illness 46 yo CM who presents for EGD secondary to GERD and chest pain. Past Surgical History Hx Cardiac Surgery: No Hx Internal Defibrillator: No Hx Pacemaker: No Hx Abdominal Surgery: No Hx of Implantable Prosthesis: No Hx Post-Op Nausea and Vomiting: No Hx Cancer Surgery: No Hx Thoracic Surgery: No Hx Orthopedic: No Hx Urinary Tract Surgery: No Family History None Social History Smoking Status: Current Every Day Smoker Hx Substance Use: No Hx Alcohol Use: No Allergies Coded Allergies: Penicillins (Unverified Allergy, Unknown, HAPPENED CHILD - PT DOESN'T REMEMBER, 02/16/17) Current Medications Reported Home Medications Medications Dose Route/Sig Max Daily Dose Days Date Category Levothyroxine Sodium 150 Mcg Tab 1 Tab PO Q2D 02/16/17 Reported Levothyroxine Sodium 175 Mcg Tab 1 Tab PO Q2D 02/16/17 Reported Omeprazole 20 Mg Tab 40 Mg PO QAM 02/16/17 Reported Sucralfate 1 Gm Tab 1 Gm PO TID 02/16/17 Reported Toprol Xl (Metoprolol Succinate) 25 Mg Tabcr 25 Mg PO QAM 01/24/17 Reported Flexeril (Cyclobenzaprine Hcl) 5 Mg Tab 5 Mg PO TID PRN 01/24/17 Reported Vital Signs Weight (Kilograms): 87.73 Height (Feet): 6 Height (Inches): 1 Date Time Temp Pulse Resp B/P Pulse Ox O2 Delivery O2 Flow Rate FiO2 02/17/17 11:14 36.6 81 18 142/77 97 Room Air Physical Exam General Appearance: WD/WN, no apparent distress Respiratory/Chest: Auscultation: breath sounds normal Cardiovascular: Heart Auscultation: RRR Abdomen: Bowel Sounds: normal Inspection & Palpation: soft, non-distended, no tenderness, guarding & rebound Assessment and Plan Assessment: 46 yo CM who presents for EGD secondary to GERD and chest pain. Plan: Proceed with EGD.
--- NOTE | 2017-02-17 11:58 | Discharge Instructions ---
Endoscopy Patient Instructions Date / Procedure(s) Performed Feb 17, 2017. EGD Allergy Information Coded Allergies: Penicillins (Unverified Allergy, Unknown, HAPPENED CHILD - PT DOESN'T REMEMBER, 02/16/17) Discharge Date / Findings Feb 17, 2017. Gastritis s/p biopsies Reflux esophagitis Medication Instructions OK to resume all medications today as prescribed Reported Home Medications Medications Dose Route/Sig Max Daily Dose Days Date Category Levothyroxine Sodium 150 Mcg Tab 1 Tab PO Q2D 02/16/17 Reported Levothyroxine Sodium 175 Mcg Tab 1 Tab PO Q2D 02/16/17 Reported Omeprazole 20 Mg Tab 40 Mg PO QAM 02/16/17 Reported Sucralfate 1 Gm Tab 1 Gm PO TID 02/16/17 Reported Toprol Xl (Metoprolol Succinate) 25 Mg Tabcr 25 Mg PO QAM 01/24/17 Reported Flexeril (Cyclobenzaprine Hcl) 5 Mg Tab 5 Mg PO TID PRN 01/24/17 Reported Provider Instructions Activity Restrictions - No exercising or heavy lifting for 24 hours. - Do not drink alcohol the day of the procedure. - Do not drive a car or operate machinery until the day after the procedure. - Do not make any important decisions or sign important papers in 24 hours after the procedure. Following Day: - Return to full activity which may include returning to work/school. Diet Start your diet with liquids and light foods (jello, soup, juice, toast). Then eat your usual diet if not nauseated. Treatment For Common After Affects For mild abdominal pain, bloating, or excessive gas: - Rest - Eat lightly - Lie on right side Follow-Up Information Follow-up with Devika DANIEL as scheduled Anesthesia Information What You Should Know You have had a procedure that required some medicine to reduce anxiety and discomfort. This treatment is called moderate sedation. After receiving the treatment, you may be sleepy, but you will be able to breathe on your own. The effects of the treatment may last for several hours. Follow these instructions along with Activity/Diet recommendations noted above: * Do NOT do anything where dizziness or clumsiness would be dangerous. * Rest quietly at home today, then you can be up and about tomorrow. * Have a responsible person stay with you the rest of today. * You may have had an I.V. today. If so, you may take the dressing off later today. Recommendations Call your doctor if: * Trouble breathing * Continuous vomiting for more than 24 hours * Temperature above 101 degrees * Severe abdominal pain or bloating * Pain not relieved by pain medicine ordered * There is increased drainage or redness from any incision * A large amount of rectal bleeding greater than 2-3 tablespoons. (If you had a polyp/s removed or have hemorrhoids, a small amount of blood - from the rectum is to be expected.) * You have any unanswered questions or concerns. IN THE EVENT OF A SERIOUS EMERGENCY, GO TO THE NEAREST EMERGENCY ROOM Your discharge instructions were prepared by provider Kashmir Ríos. Patient Instructions Signature Page Amanda Krishnamurthy Patient (or Guardian) Signature/Date: I have read and understand the instructions given to me by my caregivers. Caregiver/RN/Doctor Signature/Date: The above-named patient and/or guardian has received patient instructions on this date. + Original Patient Signature Page (only) stays with chart. Please make copy for patient.
--- NOTE | 2017-02-17 11:58 | GI REPORT ---
Procedure Date: 02/17/2017 11:43 AM Procedure: Upper GI endoscopy Indications: Suspected esophageal reflux, Chest pain (non cardiac) Medicines: Monitored Anesthesia Care Complications: No immediate complications. Estimated Blood Loss: Estimated blood loss: none. Procedure: Pre-Anesthesia Assessment: - Prior to the procedure, a History and Physical was performed, and patient medications and allergies were reviewed. The patient's tolerance of previous anesthesia was also reviewed. The risks and benefits of the procedure and the sedation options and risks were discussed with the patient. All questions were answered, and informed consent was obtained. Prior Anticoagulants: The patient has taken no previous anticoagulant or antiplatelet agents. ASA Grade Assessment: II - A patient with mild systemic disease. After reviewing the risks and benefits, the patient was deemed in satisfactory condition to undergo the procedure. After obtaining informed consent, the endoscope was passed under direct vision. Throughout the procedure, the patient's blood pressure, pulse, and oxygen saturations were monitored continuously. The scope was introduced through the mouth, and advanced to the second part of duodenum. The upper GI endoscopy was accomplished without difficulty. The patient tolerated the procedure well. Findings: LA Grade A (one or more mucosal breaks less than 5 mm, not extending between tops of 2 mucosal folds) esophagitis with no bleeding was found. Localized mild inflammation characterized by congestion (edema) was found in the gastric antrum. Biopsies were taken with a cold forceps for histology. The examined duodenum was normal. Impression: - LA Grade A reflux esophagitis. - Gastritis. Biopsied. - Normal examined duodenum. Recommendation: - Resume previous diet. - Continue present medications. - Await pathology results. - Return to GI office as previously scheduled. Kashmir Ríos, 02/17/2017 11:57:16 AM This report has been signed electronically. Note Initiated On: 02/17/2017 11:43 AM I attest to the content of the Intraoperative Record and orders documented therein, exceptions below
[2017-02-17 12:31] VITALS: BP 117/84; PULSE 77; O2SAT 95
--- NOTE | 2017-02-17 12:42 | Anesthesiology Progress Note ---
Anesthesia Post Op Note Date & Time Feb 17, 2017 at 12:42 Vital Signs Pain Intensity: 0 Vital Signs Past 12 Hours Date Time Temp Pulse Resp B/P Pulse Ox O2 Delivery O2 Flow Rate FiO2 02/17/17 12:31 77 20 117/84 95 Room Air 02/17/17 12:16 75 20 119/78 94 Room Air 02/17/17 12:01 81 20 103/59 93 Room Air 02/17/17 11:14 36.6 81 18 142/77 97 Room Air Notes Mental Status: alert / awake / arousable, participated in evaluation Pt Amnestic to Procedure: Yes Nausea / Vomiting: adequately controlled Pain: adequately controlled Airway Patency, RR, SpO2: stable & adequate BP & HR: stable & adequate Hydration State: stable & adequate Anesthetic Complications: no major complications apparent
== END | disposition home or self-care (01) ==
LOC: C.GI 10:53
PROVIDERS: ATTEND Internal Medicine
DX: R07.89 Other chest pain (principal); K21.0 Gastro-esophageal reflux disease with esophagitis; K29.70 Gastritis, unspecified, without bleeding; I10 Essential (primary) hypertension; F17.200 Nicotine dependence, unspecified, uncomplicated; Z88.0 Allergy status to penicillin; Z68.26 Body mass index [BMI] 26.0-26.9, adult; Z98.890 Other specified postprocedural states

== ENCOUNTER → 2017-04-14 | Outpatient (CLI) | payer BC ==
[~2017-04-14] MED LIST changes: -LIDOCAINE HCL 2% 2 ML VIAL (20MG/ML) ONE; -MIDAZOLAM HCL 1 MG/ML 2ML VIAL ONE; -ONDANSETRON INJ 2 MG/ML 2 ML VIAL ONE; -PROPOFOL IV EMULSION 10 MG/ML 20 ML VIAL IV ONE; -SODIUM CHLORIDE 0.9% 500ML 500 ML IV ONE
--- NOTE | 2017-04-14 07:10 | DIAGNOSTIC IMAGING REPORT ---
ULTRASOUND OF THE THYROID GLAND CLINICAL HISTORY: Raj's thyroiditis. COMPARISON STUDY: No priors. TECHNIQUE: Real-time, grayscale, and color flow sonography of the thyroid gland is performed utilizing a high-frequency linear transducer. Images are reviewed in the transverse and longitudinal planes. FINDINGS: Right lobe: The right lobe of the thyroid gland is normal in mildly enlarged and heterogeneous in echotexture, measuring 6.0 x 2.6 x 2.3 cm. The right lobe appears hyperemic on color imaging. Left lobe: The left lobe of the thyroid gland is normal in size and heterogeneous in echotexture, measuring 3.6 x 1.8 x 1.3 cm. The left lobe appears hyperemic on color imaging. Isthmus: The thyroid isthmus is thickened and heterogeneous, measuring 0.4 cm in AP diameter. IMPRESSION: 1. The thyroid gland is markedly heterogeneous in echotexture and appears hyperemic on color imaging. 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 2. No discrete thyroid lesion is identified. Electronically signed by: Ras Cisneros M.D. 04/14/2017 7:09 AM Dictated Date/Time: 04/14/2017 7:07 AM
== END | disposition home or self-care (01) ==
LOC: C.ULTR 06:32
PROVIDERS: ATTEND Physician Assistant
DX: E06.3 Autoimmune thyroiditis (principal)

== ENCOUNTER 2017-05-12 08:44 | Inpatient (IN) | payer BC ==
[~2017-05-12] VITALS: Ht 180.3 cm; Wt 86.3 kg
[~2017-05-12 08:44] MED LIST changes: -ASPI325T39 PO; -ASPI325T60 PO; -LEVO50TA PO; -LEVO75CA2 PO; -PANT40TA PO; -SYN100 PO; -THY30 PO; -ZNTT/150 PO
[2017-05-12] MEDS ORDERED: PANT40TA PO (09:16)
[2017-05-12] MEDS ORDERED: ASPI325T39 PO (09:16)
[2017-05-12] MEDS ORDERED: ZNTT/150 PO (09:16)
[2017-05-12] MEDS ORDERED: THY30 PO (09:16)
[2017-05-12] MEDS ORDERED: SODIUM CHLORIDE 0.9% 1000ML 1,000 ML IV STA (09:21)
[2017-05-12 09:42] LABS: BASO % 0.8 %; BASO ABS # 0.08 K/uL (0-0.2); COMPLETE YES; EOS % 2.1 %; HEMATOCRIT 45.8 % (42-52); IG% 0.2 %; LYMPH % 23.5 %; LYMPH ABS # 2.41 K/uL (1.2-3.4); MEAN CELL VOLUME 88.1 fL (80-100); MEAN CORPUSCULAR HEMOGLOBIN 30.6 pg (25-34); MEAN CORPUSCULAR HGB CONC 34.7 g/dl (32-36); MONO % 4.6 %; NEUT % 68.8 %; PLATELET COUNT 185 K/uL (130-400); WHITE BLOOD COUNT 10.27 K/uL (4.8-10.8)
[2017-05-12 09:50] LABS: BUN/CREATININE RATIO 14.4 (10-20); CREATININE 1.3 mg/dl (0.60-1.40); MAGNESIUM 2.2 mg/dl (1.8-2.4); POTASSIUM 3.7 mmol/L (3.5-5.1)
[2017-05-12 09:52] LABS: CALCIUM 9.1 mg/dl (8.5-10.1)
[2017-05-12 09:59] LABS: PARTIAL THROMBOPLASTIN RATIO 1.2; PROTHROMBIN TIME (PATIENT) 10.5 SECONDS (9.0-12.0)
--- NOTE | 2017-05-12 10:11 | DIAGNOSTIC IMAGING REPORT ---
CT OF THE HEAD WITHOUT CONTRAST CLINICAL HISTORY: Seizure. Dizziness. Headache. COMPARISON STUDY: No previous studies for comparison. CT DOSE: 788.63 mGycm TECHNIQUE: Helical axial images of the head were obtained without IV contrast. Automated exposure control was utilized for the study. FINDINGS: No acute intracranial hemorrhage, midline shift or mass effect is present. Brain volume is normal. Ventricular system is normal. Basilar cisterns are patent. There are no extra-axial collections. Becerra-white differentiation is maintained. There are no findings to suggest acute dural sinus thrombosis or acute territorial infarct. There is no calvarial fracture. There is minimal mucosal thickening of the ethmoid sinuses. IMPRESSION: No acute intracranial findings. Electronically signed by: Radu Gould M.D. 05/12/2017 10:10 AM Dictated Date/Time: 05/12/2017 10:07 AM
[2017-05-12 10:20] LABS: PHOSPHORUS 2.4 mg/dl (2.5-4.9)
[2017-05-12 10:32] LABS: URINE APPEARANCE CLEAR (CLEAR); URINE BILIRUBIN NEG (NEG); URINE COLOR YELLOW; URINE NITRITE NEG (NEG); URINE SPECIFIC GRAVITY 1.018 (1.000-1.030); UROBILINOGEN NEG (NEG)
[2017-05-12 10:38] LABS: MANUAL MICROSCOPIC REQUIRED? NO; REVIEW REQ? NO
--- NOTE | 2017-05-12 10:38 | EMERGENCY ROOM VISIT NOTE ---
History Report prepared by Eleni: Janet Rodriguez Under the Supervision of: Dr. Get Cesar M.D. First contact with patient: 09:08 Chief Complaint: ILLNESS Stated Complaint: DIZZY, LEE, CHEST PAIN, NAUSEA History of Present Illness The patient is a 46 year old male who presents to the Emergency Room with complaints of intermittent illness that started 3-4 weeks ago. The patient's states that the patient experiences episodes where his pupils dilate and he gets a blank stare on his face. She adds that his blood pressure rises with these episodes and typically his blood pressure is normal. She states that he doesn't respond when the episodes occur and after them he doesn't know where he is or what happened. He does not experience incontinence with these episodes. The patient experienced one of these episodes this morning [employer] and his most recent episode before that was 3 weeks ago. The patient denies any history of seizures. He has never seen a neurologist or had a CT of his head. The patient denies being on any pain medications. The patient is complaining of chest pain that is relieved with aspirin. The patient has been experiencing the pain since he was seen in the ED for similar symptoms 3 months ago, but it has been worse recently. The patient's adds that he was in the hospital about 3 months ago for left-sided chest pain. His states that he had a normal stress test at that time, as well as an unremarkable heart ultrasound, abdomen ultrasound, abdomen CT, and unremarkable ultrasounds of arteries. Source of History: patient, spouse/significant other () Onset: 3-4 weeks ago Position: other (global) Quality: other (illness) Timing: intermittent Associated Symptoms: + chest pain Note: dilated pupils, hypertension, no incontinence Review of Systems See HPI for pertinent positives & negatives. A total of 10 systems reviewed and were otherwise negative. Past Medical & Surgical Medical Problems: (1) Chest pain (2) Chest pain (3) Stomach problems Family History No pertinent family history Social History Smoking Status: Current Every Day Smoker Alcohol Use: none Marital Status: single Housing Status: lives with family Occupation Status: employed Current/Historical Medications Scheduled Aspirin (Aspirin Ec), 650 MG PO BID Metoprolol Succinate (Toprol Xl), 25 MG PO QAM Pantoprazole (Protonix), 40 MG PO DAILY Ranitidine (Zantac), 150 MG PO DAILY Thyroid ([place] Thyroid), 30 MG PO DAILY Allergies Coded Allergies: Penicillins (Unverified Allergy, Unknown, HAPPENED CHILD - PT DOESN'T REMEMBER, 05/12/17) Physical Exam Vital Signs Date Time Temp Pulse Resp B/P (MAP) Pulse Ox O2 Delivery O2 Flow Rate FiO2 05/12/17 11:45 60 20 126/85 99 Room Air 05/12/17 10:38 51 22 125/77 98 Room Air 05/12/17 09:16 100 Room Air 05/12/17 08:51 65 05/12/17 08:49 37.1 64 16 170/104 100 Room Air Physical Exam GENERAL: Patient is a healthy-appearing well-nourished male that appears to be confused. HEAD: Normocephalic atraumatic EYES: Ocular movements intact pupils equal and react to light OROPHARYNX mucous membranes are moist no exudates present no erythema or edema present NECK: Supple no nuchal rigidity CHEST: Good equal expansion LUNGS: Clear and equal to auscultation CARDIAC: Normal S1 and S2 ABDOMEN: Soft nontender no guarding BACK: No CVA tenderness EXTREMITIES: No pain upon palpation normal muscle strength in all groups no clubbing cyanosis or edema NEURO: Patient is following commands and answering questions appropriately. Alert and oriented x3 Cranial Nerves 2-12 grossly intact Medical Decision & Procedures ER Provider Diagnostic Interpretation: CT results as stated below per my review and radiologist interpretation: CT OF THE HEAD WITHOUT CONTRAST FINDINGS: No acute intracranial hemorrhage, midline shift or mass effect is present. Brain volume is normal. Ventricular system is normal. Basilar cisterns are patent. There are no extra-axial collections. Becerra-white differentiation is maintained. There are no findings to suggest acute dural sinus thrombosis or acute territorial infarct. There is no calvarial fracture. There is minimal mucosal thickening of the ethmoid sinuses. IMPRESSION: No acute intracranial findings. Electronically signed by: Radu Gould M.D. 05/12/2017 10:10 AM Dictated Date/Time: 05/12/2017 10:07 AM Laboratory Results Test 05/12/17 08:50 05/12/17 09:34 05/12/17 10:00 Immature Granulocyte % (Auto) 0.2 % White Blood Count 10.27 K/uL (4.8-10.8) Red Blood Count 5.20 M/uL (4.7-6.1) Hemoglobin 15.9 g/dL (14.0-18.0) Hematocrit 45.8 % (42-52) Mean Corpuscular Volume 88.1 fL (80-100) Mean Corpuscular Hemoglobin 30.6 pg (25-34) Mean Corpuscular Hemoglobin Concent 34.7 g/dl (32-36) Platelet Count 185 K/uL (130-400) Mean Platelet Volume 11.0 fL (7.4-10.4) Neutrophils (%) (Auto) 68.8 % Lymphocytes (%) (Auto) 23.5 % Monocytes (%) (Auto) 4.6 % Eosinophils (%) (Auto) 2.1 % Basophils (%) (Auto) 0.8 % Neutrophils # (Auto) 7.07 K/uL (1.4-6.5) Lymphocytes # (Auto) 2.41 K/uL (1.2-3.4) Monocytes # (Auto) 0.47 K/uL (0.11-0.59) Eosinophils # (Auto) 0.22 K/uL (0-0.5) Basophils # (Auto) 0.08 K/uL (0-0.2) Immature Granulocyte # (Auto) 0.02 K/uL (0.00-0.02) Prothrombin Time 10.5 SECONDS (9.0-12.0) Prothromb Time International Ratio 1.0 (0.9-1.1) Activated Partial Thromboplast Time 30.5 SECONDS (21.0-31.0) Partial Thromboplastin Ratio 1.2 Phosphorus Level 2.4 mg/dl (2.5-4.9) Magnesium Level 2.2 mg/dl (1.8-2.4) Total Creatine Kinase 163 U/L (39-308) Thyroid Stimulating Hormone (TSH) 117.000 uIu/ml (0.300-4.500) Free Thyroxine 0.39 ng/dl (0.80-1.60) Free Triiodothyronine 2.06 pg/ml (2.30-4.20) Lyme Disease IgG Antibody NEG (NEG) Lyme Disease IgM Antibody NEG (NEG) Bedside Glucose 106 mg/dl (70-99) Urine Color YELLOW Urine Appearance CLEAR (CLEAR) Urine pH 7.0 (4.5-7.5) Urine Specific [place] 1.018 (1.000-1.030) Urine Protein NEG (NEG) Urine Glucose (UA) NEG (NEG) Urine Ketones NEG (NEG) Urine Occult Blood NEG (NEG) Urine Nitrite NEG (NEG) Urine Bilirubin NEG (NEG) Urine Urobilinogen NEG (NEG) Urine Leukocyte Esterase NEG (NEG) Labs reviewed by ED physician. Medications Administered Medications (Trade) Dose Ordered Sig/Jaja Route Start Time Stop Time Status Last Admin Dose Admin Sodium Chloride 1,000 ml @ 999 mls/hr Q1H1M STAT IV 05/12/17 09:21 05/12/17 10:21 DC 05/12/17 09:21 999 MLS/HR Miscellaneous Medication (Gi Cocktail) 24 ml NOW STAT PO 05/12/17 10:52 05/12/17 10:54 DC 05/12/17 11:04 24 ML Ranitidine HCl (zANTac TAB) 150 mg NOW STAT PO 05/12/17 10:52 05/12/17 10:54 DC 05/12/17 11:03 150 MG Sucralfate (Carafate Tab) 1 gm NOW STAT PO 05/12/17 10:52 05/12/17 10:54 DC 05/12/17 11:04 1 GM Al Hydroxide/Mg Hydroxide (Maalox Susp) 30 ml STK-MED ONCE .ROUTE 05/12/17 11:01 05/12/17 11:02 DC 05/12/17 11:04 30 ML Lidocaine HCl (Xylocaine Jelly 2%) 30 ml STK-MED ONCE EXT 05/12/17 11:02 05/12/17 11:03 DC 05/12/17 11:04 30 ML ECG Indication: chest pain Rate (beats per minute): 74 Rhythm: normal sinus Findings: no acute ischemic change, no ectopy ED Course 0912: Past medical records reviewed. The patient was evaluated in room A10. A complete history and physical examination was performed. 920: Ordered Sodium Chloride 1000 ml @ 999 mls/hr IV 1040: I had a long discussion with the patient and his . They informed me that the patient's symptoms seemed to start after he started taking Prilosec and pantoprazole so he has stopped taking both. The patient informed me that he has also stopped taking his thyroid medication because he thought that could be contributing to his symptoms. 1052: Ordered Carafate Tab 1 gm PO, Zantac Tab 150 mg PO, GI Cocktail 24 ml PO 1101: Ordered Maalox Susp 30 ml PO 1102: Ordered Lidocaine HCl 30 ml EXT 1110: I discussed the patient's case with the transformation manager. She recommended calling neurology. 1114: I discussed the patient's case with Dr. Henok Cevallos. He suspects that the patient is going in and out of atrial fibrillation with his elevated thyroid levels so he suspects intermittent embolic events. He recommended admitting the patient for further evaluation. 1117: Upon reexamination the patient is resting comfortably. I discussed results and treatment plan with the patient and his . They verbalize agreement and understanding. The patient will be evaluated for further management. 1126: I discussed the patient's case with Stacy WEINSTEIN, she has agreed to evaluate the patient for further management and care. Medical Decision Differential diagnosis: Etiologies such as infection, hypoglycemia, electrolyte abnormalities, cardiac sources, intracerebral event, trauma, toxicologic, neurologic, as well as others were entertained. Medication Reconciliation: I attest that I have personally reviewed the patient' s current medication list Blood Pressure Screening: Patient was found to have an elevated blood pressure and was referred to their primary care doctor for recheck and further treatment This is a 46-year-old male who presents emergency department with.'s of confusion. Upon arrival to emergency department the patient appears post ictal. After talking to him several times I finally come to the conclusion that he stopped taking his thyroid medication as well as his stomach medication because he believe the causing these episodes of confusion. The patient was hypertensive when the confusion was happening. I did discuss the case with Dr. Whiting who felt that the patient could be admitted to the medicine service. I discussed my plans both patient and are in agreement with the treatment plan. Consults Time Called: 1110 Consulting Physician: Dr. Henok Titus [facility] Returned Call: [phone] I discussed the patient's case with Dr. Henok Cevallos. He suspects that the patient is going in and out of atrial fibrillation with his elevated thyroid levels so he suspects intermittent embolic events. He recommended admitting the patient for further evaluation. Additional Consults: Time Called: 1117 Consulted Physician: Stacy WEINSTEIN Returned Call: [phone] Additional Comments: I discussed the patient's case with Stacy WEINSTEIN, she has agreed to evaluate the patient for further management and care. Impression Primary Impression: Metabolic encephalopathy Scribe Attestation The scribe's documentation has been prepared under my direction and personally reviewed by me in its entirety. I confirm that the note above accurately reflects all work, treatment, procedures, and medical decision making performed by me. Departure Information Dispostion Being Evaluated By Hospitalist Referrals No Doctor, Assigned (PCP) Patient Instructions [facility]
[2017-05-12] MEDS ORDERED: RANITIDINE HCL 150 MG TAB PO STA (10:52)
[2017-05-12] MEDS ORDERED: GI COCKTAIL PO STA (10:52)
[2017-05-12] MEDS ORDERED: SUCRALFATE 1 GM TAB PO STA (10:52)
[2017-05-12] MEDS ORDERED: ALUMINUM/MAGNESIUM SUSP 30 ML UDC ONE (11:01)
[2017-05-12] MEDS ORDERED: LIDOCAINE HCL 2% JELLY 30 ML TUBE EXT ONE (11:02)
[2017-05-12 11:24] LABS: LYME DISEASE AB IGG NEG (NEG); LYME DISEASE AB IGM NEG (NEG)
[2017-05-12] MEDS ORDERED: NITROGLYCERIN 0.4 MG SL PER TAB CHARGE SL PRN (12:00)
[2017-05-12] MEDS ORDERED: POLYETHYLENE (MIRALAX) 17 GM PACK PO PRN (12:00)
[2017-05-12] MEDS ORDERED: ALUMINUM/MAGNESIUM/SIMETH (MAALOX MAX) 30 ML UDC PO PRN (12:00)
[2017-05-12] MEDS ORDERED: ONDANSETRON INJ 2 MG/ML 2 ML VIAL IV PRN (12:00)
[2017-05-12] MEDS ORDERED: MAGNESIUM HYDROXIDE SUSP 30 ML UDC PO PRN (12:00)
[2017-05-12] MEDS ORDERED: ACETAMINOPHEN 325 MG TAB PO PRN (12:00)
--- NOTE | 2017-05-12 12:34 | History and Physical ---
History & Physical Date & Time of Service: May 12, 2017 at 12:06 Chief Complaint: Dizzy, Bashir, Chest Pain, Nausea Primary Care Physician: No Doctor, Assigned History of Present Illness Source: patient, family (- at bedside), clinic records, hospital records Patient is a pleasant 46 y/o male, with PMHx of Raj thyroiditis, HTN, and GERD w/ esophagitis, who presented to the ED because of episodes of "blacking out" and left-sided CP. The patient was seen in January 2017 because of left- sided CP. At that time a full workup was unremarkable for cardiac events. His main complaint at this time is his blackout episodes. The patient states since December he has been experiencing these episodes where he experiences left- sided CP, palpations, and generalized weakness. He takes 650 mg ASA BID and his CP improves. Over the course of several months, these episodes have been worsening and he now is starting to "black out." According to his , his pupils become dilated and his stares forward w/ no response. After the fact, the patient is slightly confused, but slowly gains consciousness and can answer questions appropriately. His BP also becomes elevated. During today's event, BP was 188/112. Denies bowel/urine incontinence. Patient denies any fever, chills, sweats, lightheadedness, dizziness, vision changes, edema, SOB, wheezing, cough , abdominal pain, nausea, vomiting, diarrhea, urinary symptoms, melena, numbness /tingling, muscle/joint pain, anxiety/depression, active bleeding, or new skin discoloration/changes. Of note, the patient quit taking his thyroid medication 1 month ago because the thought symptoms were attributed to that. Patient has been on thyroid medication since 2002 and episodes just started in 2016. He is to follow-up with [facility] on 05/18. Patient quit taking his Metoprolol as well because other than these events, his BP is well controlled. Patient also quit taking his Protonix for a while because he thought symptoms might be attributed to that. However, symptoms began before starting Protonix. Past Medical/Surgical History PMHx: 1. Raj's thyroiditis 2. HTN 3. GERD w/ esophagitis Family History No pertinent family history Social History Smoking Status: Current Every Day Smoker Marital Status: Housing status: lives with family Occupational Status: employed (team truck driver ) Allergies Coded Allergies: Penicillins (Unverified Allergy, Unknown, HAPPENED CHILD - PT DOESN'T REMEMBER, 05/12/17) Home Medications Scheduled Aspirin (Aspirin Ec), 650 MG PO BID Metoprolol Succinate (Toprol Xl), 25 MG PO QAM Pantoprazole (Protonix), 40 MG PO DAILY Ranitidine (Zantac), 150 MG PO DAILY Thyroid ([place] Thyroid), 30 MG PO DAILY Physical Exam Vital Signs Date Time Temp Pulse Resp B/P (MAP) Pulse Ox O2 Delivery O2 Flow Rate FiO2 05/12/17 10:38 51 22 125/77 98 Room Air 05/12/17 09:16 100 Room Air 05/12/17 08:51 65 05/12/17 08:49 37.1 64 16 170/104 100 Room Air General Appearance: WD/WN, no apparent distress Head: normocephalic, atraumatic Eyes: normal inspection, PERRL ENT: hearing grossly normal Neck: supple Respiratory/Chest: lungs clear, no respiratory distress, no accessory muscle use Cardiovascular: + bradycardia (rhythm regular) Abdomen/GI: normal bowel sounds, non tender, soft Back: normal inspection Extremities/Musculoskelatal: no calf tenderness, no pedal edema Neurologic/Psych: alert, normal mood/affect, oriented x 3 Skin: normal color, warm/dry, no rash Diagnostics Laboratory Results Results Past 24 Hours Test 05/12/17 08:50 05/12/17 09:34 05/12/17 10:00 Range/Units White Blood Count 10.27 4.8-10.8 K/uL Red Blood Count 5.20 4.7-6.1 M/uL Hemoglobin 15.9 14.0-18.0 g/dL Hematocrit 45.8 42-52 % Mean Corpuscular Volume 88.1 80-100 fL Mean Corpuscular Hemoglobin 30.6 25-34 pg Mean Corpuscular Hemoglobin Concent 34.7 32-36 g/dl Platelet Count 185 130-400 K/uL Mean Platelet Volume 11.0 7.4-10.4 fL Neutrophils (%) (Auto) 68.8 % Lymphocytes (%) (Auto) 23.5 % Monocytes (%) (Auto) 4.6 % Eosinophils (%) (Auto) 2.1 % Basophils (%) (Auto) 0.8 % Neutrophils # (Auto) 7.07 1.4-6.5 K/uL Lymphocytes # (Auto) 2.41 1.2-3.4 K/uL Monocytes # (Auto) 0.47 0.11-0.59 K/uL Eosinophils # (Auto) 0.22 0-0.5 K/uL Basophils # (Auto) 0.08 0-0.2 K/uL RDW Standard Deviation 43.9 36.4-46.3 fL RDW Coefficient of Variation 13.5 11.5-14.5 % Immature Granulocyte % (Auto) 0.2 % Immature Granulocyte # (Auto) 0.02 0.00-0.02 K/uL Prothrombin Time 10.5 9.0-12.0 SECONDS Prothromb Time International Ratio 1.0 0.9-1.1 Activated Partial Thromboplast Time 30.5 21.0-31.0 SECONDS Partial Thromboplastin Ratio 1.2 Sodium Level 141 136-145 mmol/L Potassium Level 3.7 3.5-5.1 mmol/L Chloride Level 108 98-107 mmol/L Carbon Dioxide Level 23 21-32 mmol/L Anion Gap 10.0 3-11 mmol/L Blood Urea Nitrogen 19 7-18 mg/dl Creatinine 1.30 0.60-1.40 mg/dl Est Creatinine Clear Calc Drug Dose 76.4 ml/min Estimated GFR () 76.4 Estimated GFR (Non- 65.9 BUN/Creatinine Ratio 14.4 10-20 Random Glucose 118 70-99 mg/dl Calcium Level 9.1 8.5-10.1 mg/dl Phosphorus Level 2.4 2.5-4.9 mg/dl Magnesium Level 2.2 1.8-2.4 mg/dl Total Creatine Kinase 163 39-308 U/L Thyroid Stimulating Hormone (TSH) 117.000 0.300-4.500 uIu/ml Free Thyroxine 0.39 0.80-1.60 ng/dl Free Triiodothyronine 2.06 2.30-4.20 pg/ml Lyme Disease IgG Antibody NEG NEG Lyme Disease IgM Antibody NEG NEG Bedside Glucose 106 70-99 mg/dl Urine Color YELLOW Urine Appearance CLEAR CLEAR Urine pH 7.0 4.5-7.5 Urine Specific [place] 1.018 1.000-1.030 Urine Protein NEG NEG Urine Glucose (UA) NEG NEG Urine Ketones NEG NEG Urine Occult Blood NEG NEG Urine Nitrite NEG NEG Urine Bilirubin NEG NEG Urine Urobilinogen NEG NEG Urine Leukocyte Esterase NEG NEG Diagnostic Radiology CT OF THE HEAD WITHOUT CONTRAST CLINICAL HISTORY: Seizure. Dizziness. Headache. COMPARISON STUDY: No previous studies for comparison. CT DOSE: 788.63 mGycm TECHNIQUE: Helical axial images of the head were obtained without IV contrast. Automated exposure control was utilized for the study. FINDINGS: No acute intracranial hemorrhage, midline shift or mass effect is present. Brain volume is normal. Ventricular system is normal. Basilar cisterns are patent. There are no extra-axial collections. Becerra-white differentiation is maintained. There are no findings to suggest acute dural sinus thrombosis or acute territorial infarct. There is no calvarial fracture. There is minimal mucosal thickening of the ethmoid sinuses. IMPRESSION: No acute intracranial findings. Electronically signed by: Radu Gould M.D. 05/12/2017 10:10 AM Dictated Date/Time: 05/12/2017 10:07 AM The status of this report is Signed. Draft = Not yet reviewed or approved by Radiologist. Signed = Reviewed and approved by Radiologist. Impression Assessment and Plan Patient is a pleasant 46 y/o male, with PMHx of Raj thyroiditis, HTN, and GERD w/ esophagitis, who presented to the ED because of episodes of "blacking out" and left-sided CP. Left-sided CP/?TIA vs seizure activity: - Admit to tele for cardiac monitoring - Trend cardiac enzymes - Head CT unremarkable for acute intracranial findings - Consult neurology, appreciate recommendations- has not followed w/ Neurology in the past -- Dr. Whiting spoke w/ ED physician- ?a.fib w/ embolic events- obtain brain MRI - Carotid US in 01/2017- unremarkable for significant stenosis - Stress ECHO on 01/24/17- unremarkable - Lyme screen negative - UA negative Raj's thyroiditis w/ TSH of 117, T4 0.39, and T3 2.06- noncompliant w/ medication: - IV 50 mcg Synthroid now; begin Synthroid 100 mcg on 05/12 - Of note: patient's current treatment is Amour 30 mg daily- previous treatment was Synthroid 150 mcg Q2D and 175 Q2D- patient is unsure why medication was switched by PCP - Thyroid US on 04/14/17- 1. The thyroid gland is markedly heterogeneous in echotexture and appears hyperemic on color imaging. 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 2. No discrete thyroid lesion is identified. - Patient has appointment w/ [facility] on 05/18 HTN: Continue Metoprolol 25 mg daily GERD w/ esophagitis- EGD in 01/2017: Continue Protonix 40 mg daily and Zantac 150 mg daily GI Prophylaxis: Maalox PRN, IV Zofran PRN, Colace and/or Milk of Mag PRN DVT prophylaxis: Lovenox 40 mg SQ q24 hrs, MARLYS and SCDs Code Status: LEVEL I, FULL Dispo: From home lives w/ - patient is a team truck driver Resident Physician Supervision Note: I was present with the PA during the history and exam. I discussed the case with the PA and agree with the findings and plan as documented in the note. Any exceptions or clarifications are listed here: 46 y/o M HTN, hypothyroid - presents with brief unresponsive episodes associated with high BP and L CP per his - symptoms are especially concerning as he drives a truck for a living. It appears that he bashir stopped taking both his Synthroid and HTN meds as he thought they might be contributing to his symptoms. OE AAO x 3 S1,2 R CTAB NT, ND, BS+ No CCE P: We will monitor on telemetry, obtain an echo and a brain MRI We will start IV Synthroid as his TSH > 100 Restart Labetolol - ASA - consult Neuro to R/O seizures and will consult cardio if arrhythmias are apparent Documented By: Lars Vasquez Level of Care Telemetry Resuscitation Status FULL RESUSCITATION VTE Prophylaxis VTE Risk Assessment Done? Y/N: Yes Risk Level: Moderate Given or contraindicated: Enoxaparin (Lovenox)SQ, T.E.D. Stockings, SCD's
[2017-05-12 13:15] VITALS: BP 134/84; PULSE 57; TEMP 36.5; O2SAT 97
[2017-05-12] MEDS ORDERED: LEVOTHYROXINE SODIUM INJ 50 MCG in SYRINGE 0 ML IV ONE (14:00)
[2017-05-12 14:29] VITALS: BP 134/84; PULSE 57; TEMP 36.5; O2SAT 96; Ht 180.3 cm; Wt 86.3 kg
[2017-05-12 16:00] VITALS: O2SAT 97
--- NOTE | 2017-05-12 16:24 | DIAGNOSTIC IMAGING REPORT ---
ORBIT RADIOGRAPHS 3 VIEWS HISTORY: pre-MRI screening. COMPARISON: None. FINDINGS: There are no radiopaque foreign bodies identified within the orbits. IMPRESSION: No radiopaque foreign bodies identified within the orbits. Electronically signed by: Jerald Lee M.D. 05/12/2017 4:23 PM Dictated Date/Time: 05/12/2017 4:23 PM
[2017-05-12] MEDS: ENOXAPARIN 40 MG/0.4 ML SYR SC SCH (17:16)
--- NOTE | 2017-05-12 19:21 | ECHOCARDIOGRAM REPORT ---
*NOTICE TO RECEIVING REPUBLICAN AGENCY This information is strictly Confidential and protected under [place] law. [place] law prohibits you from making any further disclosure of this information unless further disclosure is expressly permitted by the written consent of the person to whom it pertains or is authorized by law. A general authorization for the release of medical or other information is not sufficient for this purpose. Hospital accepts no responsibility if the information is made available to any other person, INCLUDING THE PATIENT. Interpretation Summary * Name: YOLETTE DONOVAN Study Date: 05/12/2017 01:48 PM BP: 134/84 mmHg * Patient Location: C.2E\S\E209\S\1 HR: 57 * : 1970 (M/d/yyyy) Gender: Male Height: 71 in * Age: 46 yrs Ethnicity: [place] Weight: 194 lb * Ordering Physician: Lars Vasquez * Referring Physician: No Doctor, Assigned * Performed By: Maren Escudero RDCS * * Reason For Study: UNRESPONSIVE EPISODES WITH CP * BSA: 2.1 m2 * -- Conclusions -- * 1. Normal LV size and wall thickness. * 2. Normal LV systolic function. LVEF 55-60%. No regional wall motion abnormalities. * 3. Normal RV size and function. * 4. Trace MR, Trace TR. * 5. Normal estimated RA and PA pressures. * 6. Compared with prior study on 01/25/2017: No significant changes. Procedure Details * A complete two-dimensional transthoracic echocardiogram was performed (2D, M-mode, Doppler and color flow Doppler). Left Ventricle * The left ventricle is grossly normal size. * There is normal left ventricular wall thickness. * Ejection Fraction = 55-60%. * No regional wall motion abnormalities noted. Right Ventricle * The right ventricle is grossly normal size. * The right ventricular systolic function is normal as assessed by tricuspid annular plane systolic excursion (TAPSE) (normal >1.5 cm). Atria * The left atrial size is normal. * Right atrial size is normal. Mitral Valve * The mitral valve is grossly normal. * Mitral stenosis is absent. * There is trace mitral regurgitation. Tricuspid Valve * There is trace tricuspid regurgitation. Aortic Valve * The aortic valve opens well. * The aortic valve is trileaflet. * No hemodynamically significant valvular aortic stenosis. * There is no significant aortic regurgitation. Pulmonic Valve * The pulmonary valve is inadequately visualized, but the Doppler data is adequate for interpretation. * Pulmonic stenosis is absent. Great Vessels * The aortic root and proximal ascending aorta are normal sized. * No Doppler or imaging evidence of an aortic coarctation. Pericardium/Pleural * There is no pericardial effusion. Great Vessels * Normal inferior vena cava size and collapsability with sniff indicates a normal right atrial pressure of 3 mmHg MMode 2D Measurements and Calculations IVSd 0.90 cm IVSs 1.4 cm LVIDd 5.3 cm LVIDs 3.8 cm LVPWd 0.99 cm LVPWs 1.6 cm IVS/LVPW 0.91 FS 28.8 % EDV(Teich) 133.7 ml ESV(Teich) 60.1 ml EF(Teich) 55.1 % EDV(cubed) 146.5 ml ESV(cubed) 52.8 ml EF(cubed) 64.0 % % IVS thick 56.8 % % LVPW thick 65.8 % LV mass(C)d 184.4 grams LV mass(C)dI 88.6 grams/m\S\2 LV mass(C)s 218.8 grams LV mass(C)sI 105.1 grams/m\S\2 SV(Teich) 73.6 ml SI(Teich) 35.4 ml/m\S\2 SV(cubed) 93.7 ml SI(cubed) 45.0 ml/m\S\2 Ao root diam 3.4 cm Ao root area 9.1 cm\S\2 LA dimension 3.0 cm LA/Ao 0.87 LVAd ap4 32.5 cm\S\2 LVLd ap4 9.0 cm EDV(MOD-sp4) 98.3 ml EDV(sp4-el) 99.4 ml LVAs ap4 21.2 cm\S\2 LVLs ap4 8.0 cm ESV(MOD-sp4) 50.6 ml ESV(sp4-el) 47.6 ml EF(MOD-sp4) 48.5 % EF(sp4-el) 52.1 % LVAd ap2 30.5 cm\S\2 LVLd ap2 8.7 cm EDV(MOD-sp2) 89.6 ml EDV(sp2-el) 90.6 ml LVAs ap2 19.0 cm\S\2 LVLs ap2 7.8 cm ESV(MOD-sp2) 39.2 ml ESV(sp2-el) 39.0 ml EF(MOD-sp2) 56.2 % EF(sp2-el) 57.0 % LVLd %diff -3.31 % EDV(MOD-bp) 95.8 ml LVLs %diff -1.79 % ESV(MOD-bp) 44.7 ml EF(MOD-bp) 53.4 % SV(MOD-sp4) 47.7 ml SI(MOD-sp4) 22.9 ml/m\S\2 SV(MOD-sp2) 50.4 ml SI(MOD-sp2) 24.2 ml/m\S\2 SV(MOD-bp) 51.1 ml SI(MOD-bp) 24.6 ml/m\S\2 SV(sp4-el) 51.7 ml SI(sp4-el) 24.9 ml/m\S\2 SV(sp2-el) 51.6 ml SI(sp2-el) 24.8 ml/m\S\2 Doppler Measurements and Calculations MV E max jud 100.1 cm/sec MV A max jud 39.3 cm/sec MV E/A 2.5 MV dec time 0.17 sec Ao V2 max 103.4 cm/sec Ao max PG 4.3 mmHg Ao max PG (full) 0.74 mmHg LV V1 max PG 3.5 mmHg LV V1 max 94.0 cm/sec TR max jud 206.7 cm/sec
[2017-05-12 19:40] VITALS: BP 116/73; PULSE 64; TEMP 36.4; O2SAT 97
[2017-05-12 20:00] VITALS: O2SAT 97
--- NOTE | 2017-05-12 23:41 | DIAGNOSTIC IMAGING REPORT ---
Brain MRI WITH AND WITHOUT CONTRAST HISTORY: Syncope. Headaches. Blacking out episodes TECHNIQUE: Multiplanar multisequence MRI of the brain was performed both before and after the intravenous administration of contrast. COMPARISON STUDY: Head CT 05/12/2017. FINDINGS: There are no areas of restricted diffusion to suggest acute infarction. The midline structures are intact. Small retention cysts within the right maxillary sinus.. The mastoid air cells are clear. The ventricles and sulci are within normal limits for age. There is no mass, hematoma, midline shift. The major vascular flow-voids at the skull base are well maintained. Postcontrast sequences show no areas of abnormal enhancement. IMPRESSION: No acute intracranial abnormality. Electronically signed by: Jerald Lee M.D. 05/12/2017 11:40 PM Dictated Date/Time: 05/12/2017 11:33 PM
[2017-05-13] VITALS (13 sets, daily range): BP systolic 104–138; BP diastolic 61–89; PULSE 56–65; TEMP 36.4–36.7; O2SAT 95–99
[2017-05-13] MEDS: LEVOTHYROXINE 100 MCG TAB PO SCH (05:29)
[2017-05-13 05:38] LABS: HEMATOCRIT 41.9 % (42-52); MEAN CELL VOLUME 88.4 fL (80-100); MEAN CORPUSCULAR HGB CONC 35.1 g/dl (32-36); MEAN PLATELET VOLUME 11.4 fL (7.4-10.4); PLATELET COUNT 162 K/uL (130-400); RED BLOOD COUNT 4.74 M/uL (4.7-6.1); WHITE BLOOD COUNT 7.84 K/uL (4.8-10.8)
[2017-05-13 06:08] LABS: BUN/CREATININE RATIO 12.4 (10-20); CALCIUM 7.9 mg/dl (8.5-10.1); CREATININE 1.3 mg/dl (0.60-1.40)
[2017-05-13] MEDS: PANTOprazole SOD 40 MG TAB PO SCH (08:18)
[2017-05-13] MEDS: ASPIRIN/ALUM/MAGNES/CAL CARB 325 MG TAB PO SCH (08:18)
[2017-05-13] MEDS: RANITIDINE HCL 150 MG TAB PO SCH (08:18)
[2017-05-13] MEDS: METOPROLOL SUCC 25MG EXT REL TAB PO SCH (08:18)
[2017-05-13] MEDS: NICOTINE 21 MG/24 HR TDSY TD SCH (08:59)
[2017-05-13] MEDS ORDERED: ASPIRIN 81 MG ECTAB PO SCH (09:00)
--- NOTE | 2017-05-13 09:57 | Neurology Consultation ---
Neurology Consultation Date of Consultation: May 13, 2017. Attending Physician: Chong Lemos M.D. Primary Care Physician: No Doctor, Assigned Reason for Consultation: Intermittent change in mental status, question atrial fibrillation with embolic events History of Present Illness Source: patient, hospital records The patient is a 46-year-old male with a chief complaint of intermittent confusion. He complains of episodic dizziness, vague headache, and confusion that began 3-4 weeks ago. He also reports some associated anxiety. He has been observed to have a blank stare, pupillary dilatation, and hypertension during these spells. The patient has also been complaining of episodic left-sided chest pain, nausea, and intermittent diarrhea. Past medical history notable for Raj's thyroiditis, hypertension, and gastroesophageal reflux disease. The patient had reported that he decided to stop taking his thyroid medication, metoprolol, and Protonix several weeks ago as he thought these medications may be causing his symptoms. This patient's TSH was noted to be significantly elevated in the emergency department, 117. His free T4 and T3 are low. An initial electrocardiogram revealed a normal sinus rhythm with a heart rate of 74 bpm. A follow-up electrocardiogram completed today revealed sinus bradycardia with a heart rate of 49 bpm. No evidence of atrial fibrillation. A transthoracic echocardiogram is unremarkable. Past Medical/Surgical History Medical Problems: (1) Left sided chest pain Status: Acute (2) Metabolic encephalopathy Status: Acute Family History The patient reports that he has a half brother with epilepsy Social History Smoking Status: Current every day smoker Marital Status: Housing Status: lives with family Occupation Status: employed (heavy truck driver ) Allergies Coded Allergies: Penicillins (Unverified Allergy, Unknown, HAPPENED CHILD - PT DOESN'T REMEMBER, 05/12/17) Current Inpatient Medications Current Inpatient Medications Medications (Trade) Dose Ordered Sig/Jaja Route Start Time Stop Time Status Last Admin Dose Admin Enoxaparin Sodium (Lovenox Inj) 40 mg Q24H SC 05/12/17 14:00 06/11/17 13:59 05/12/17 17:16 40 MG Acetaminophen (Tylenol Tab) 650 mg Q4H PRN PO 05/12/17 12:00 06/11/17 11:59 Al Hydrox/Mg Hydrox/Simethicone (Maalox Max Susp) 15 ml Q4H PRN PO 05/12/17 12:00 06/11/17 11:59 Magnesium Hydroxide (Milk Of Magnesia Susp) 30 ml Q12H PRN PO 05/12/17 12:00 06/11/17 11:59 Ondansetron HCl (Zofran Inj) 4 mg Q6H PRN IV 05/12/17 12:00 06/11/17 11:59 Nitroglycerin (Nitrostat Tab) 0.4 mg UD PRN SL 05/12/17 12:00 06/11/17 11:59 Polyethylene (Miralax Powder Packet) 17 gm DAILY PRN PO 05/12/17 12:00 06/11/17 11:59 Levothyroxine Sodium (Synthroid Tab) 100 mcg DAILYBB PO 05/13/17 06:00 06/12/17 06:59 05/13/17 05:29 100 MCG Metoprolol Succinate (Toprol Xl Tab) 25 mg QAM PO 05/13/17 09:00 06/12/17 08:59 05/13/17 08:18 25 MG Pantoprazole Sodium (Protonix Tab) 40 mg DAILY PO 05/13/17 09:00 06/12/17 08:59 05/13/17 08:18 40 MG Ranitidine HCl (zANTac TAB) 150 mg DAILY PO 05/13/17 09:00 06/12/17 08:59 05/13/17 08:18 150 MG Aspirin/Aluminum/ Magnesium/Ca Carb (Ascriptin Tab) 325 mg DAILY PO 05/13/17 09:00 06/12/17 08:59 05/13/17 08:18 325 MG Nicotine (Nicoderm Cq 21MG Patch) 1 patch QAM TD 05/13/17 09:00 06/12/17 08:59 05/13/17 08:59 1 PATCH Miscellaneous (Remove Nicoderm Patch) 1 ea HS N/A 05/13/17 21:00 06/12/17 20:59 Review of Systems A complete 10 point review of systems was obtained from this patient with pertinent positives and negatives described in the history of present illness. All other systems reviewed and are negative. Physical Exam Vital Signs (Past 24 Hrs): Date Time Temp Pulse Resp B/P (MAP) Pulse Ox O2 Delivery O2 Flow Rate FiO2 05/13/17 07:59 36.7 64 18 137/89 (105) 99 Room Air 05/13/17 04:00 97 Room Air 05/13/17 03:57 36.7 56 18 111/69 (83) 97 Room Air 05/13/17 00:01 97 Room Air 05/13/17 00:00 36.6 63 18 104/61 (75) 98 Room Air 05/12/17 20:00 97 Room Air 05/12/17 19:40 36.4 64 20 116/73 (87) 97 Room Air 05/12/17 16:00 97 Room Air 05/12/17 14:29 36.5 57 16 134/84 96 Room Air 05/12/17 13:15 36.5 57 16 134/84 (101) 97 Room Air 05/12/17 12:54 60 20 134/86 99 05/12/17 12:39 60 05/12/17 11:45 60 20 126/85 99 Room Air 05/12/17 10:38 51 22 125/77 98 Room Air The patient is a well-developed, well-nourished middle-aged male. He is alert and fully oriented. Recent and remote memory intact. Attention and concentration normal. Normal spontaneous speech pattern. Age-appropriate fund of knowledge. Visual gilbert full to confrontation. Visual acuity normal. Pupils equal round reactive to light and accommodation. No nystagmus. No proptosis or exophthalmus. Facial sensation intact. There is normal facial symmetry and strength. Hearing intact. Palate elevates to midline. Shoulder shrug intact. Tongue protrudes to midline. Sensation intact to vibration, light touch, temperature, and proprioception for the arms and legs. Deep tendon reflexes intact and symmetrical for the arms and legs. Plantar responses downgoing. There is no dysdiadochokinesia or dysmetria with finger to nose or heel to bhatti. Ophthalmoscopic examination reveals normal-appearing optic disks and posterior segments. No papilledema or hemorrhages. Carotid pulses normal bilaterally, no bruits to auscultation. Gait and station normal. Muscle strength normal for the arms and legs. Muscle tone normal throughout. No atrophy. No abnormal movements observed. Laboratory Results Past 24 Hours: 05/13/17 05:13 05/13/17 05:13 Test 05/12/17 10:00 05/12/17 19:30 05/13/17 05:13 Urine Color YELLOW Urine Appearance CLEAR (CLEAR) Urine pH 7.0 (4.5-7.5) Urine Specific [place] 1.018 (1.000-1.030) Urine Protein NEG (NEG) Urine Glucose (UA) NEG (NEG) Urine Ketones NEG (NEG) Urine Occult Blood NEG (NEG) Urine Nitrite NEG (NEG) Urine Bilirubin NEG (NEG) Urine Urobilinogen NEG (NEG) Urine Leukocyte Esterase NEG (NEG) Creatine Kinase MB 1.3 ng/ml (0.5-3.6) Creatine Kinase MB Ratio (0-3.0) Troponin I < 0.015 ng/ml (0-0.045) Red Blood Count 4.74 M/uL (4.7-6.1) Mean Corpuscular Volume 88.4 fL (80-100) Mean Corpuscular Hemoglobin 31.0 pg (25-34) Mean Corpuscular Hemoglobin Concent 35.1 g/dl (32-36) RDW Standard Deviation 44.3 fL (36.4-46.3) RDW Coefficient of Variation 13.5 % (11.5-14.5) Mean Platelet Volume 11.4 fL (7.4-10.4) Anion Gap 7.0 mmol/L (3-11) Est Creatinine Clear Calc Drug Dose 76.4 ml/min Estimated GFR () 76.4 Estimated GFR (Non- 65.9 BUN/Creatinine Ratio 12.4 (10-20) Calcium Level 7.9 mg/dl (8.5-10.1) Imaging A CT of the head obtained in the emergency department was unremarkable. No evidence of hemorrhage or acute process. A follow-up brain MRI with and without contrast was completed as well. I reviewed the images as well as the radiologist 's interpretation of this test. Diffusion-weighted images unremarkable. T2/ flair images unremarkable. Thin seizure sections through the temporal lobes unremarkable. No abnormal post contrast enhancement. Impression Seizure-like episodes occurring in the context of thyroid derangement. It is unclear what this patient's thyroid status was prior to self discontinuation of his thyroid medication and metoprolol. He does have a history of Raj's thyroiditis. Many of his reported symptoms could be consistent with hyperthyroidism. However, his current lab work suggests significant hypothyroidism likely related to abrupt cessation of his thyroid medication. This patient did have an episode of mild bradycardia this morning. It is unclear to what extent the reported episodes may relate to an underlying cardiac arrhythmia. No evidence of atrial fibrillation thus far on monitoring. Furthermore, there is no evidence of recent or previous stroke on his MRI. The study was also negative for any particular parenchymal abnormalities including mesial temporal sclerosis that would otherwise predispose to seizures. Plan I do not have a strong suspicion that this patient's primary issue is neurological. However, I think obtaining an electroencephalogram would be useful and I will order this test. If the EEG cannot be completed over the weekend and I think an outpatient EEG would be reasonable. I would not recommend starting an anticonvulsant medication at this time.
[2017-05-13] MEDS ORDERED: LORAZEPAM 2 MG/ML 1 ML VIAL IV PRN ×2 (11:30)
[2017-05-13] MEDS ORDERED: LORAZEPAM 0.5 MG TAB PO PRN (11:30)
[2017-05-13] MEDS ORDERED: LORAZEPAM INJ 1 MG in SYRINGE 0.5 ML IV PRN (11:45)
[2017-05-13] MEDS ORDERED: LORAZEPAM INJ 0.5 MG in SYRINGE 0.75 ML IV PRN (11:45)
--- NOTE | 2017-05-13 13:21 | DIAGNOSTIC IMAGING REPORT ---
LEFT RIBS UNILATERAL WITH PA CHEST CLINICAL HISTORY: LEFT RIB FOCAL PAIN AROUND 5TH OR 6TH AXILLARY LINE AND STERNUM COMPARISON STUDY: None FINDINGS: Negative chest. Negative left ribs. IMPRESSION: Negative study Electronically signed by: Luis Daniel Peter M.D. 05/13/2017 1:19 PM Dictated Date/Time: 05/13/2017 1:18 PM
[2017-05-13] MEDS: ENOXAPARIN 40 MG/0.4 ML SYR SC SCH (13:25)
--- NOTE | 2017-05-13 14:43 | Progress Note ---
Subjective Date of Service: May 13, 2017. Subjective pt has are concerned that nothing has been noted to diagnose this issue, when discussing furhter treatment with the patient he states he has had tilt table testing in the past but ot recently , he cannot recall having the same events in the past though. concern of him "blacking out" and not knowing how to prevent is muddied by the fact that he has thyroiditis and had stopped his thyroid replacement on his own recently, he states however his symptoms did preceed this, now is markedly hypothyroid. He and are convinced that he has preceding palpitations, then marked hypertension then blacks out Problem List Medical Problems: (1) Left sided chest pain Status: Acute (2) Metabolic encephalopathy Status: Acute Review of Systems Constitutional: + weakness, + fatigue, No fever, No chills Respiratory: No cough, No sputum, No shortness of breath, No dyspnea on exertion Cardiac: + palpitations, No chest pain, No orthopnea, No edema, No claudication Abdomen: No pain, No nausea, No vomiting, No diarrhea Musculoskeletal: No joint pain, No muscle pain Male : No dysuria, No urinary frequency, No incontinence, No nocturia more than once/night Neurologic: + memory loss (he cannot remember these events after they happen), No paralysis Psychiatric: No depression symptoms, No anhedonism Objective Vital Signs Date Time Temp Pulse Resp B/P (MAP) Pulse Ox O2 Delivery O2 Flow Rate FiO2 05/13/17 07:59 36.7 64 18 137/89 (105) 99 Room Air 05/13/17 04:00 97 Room Air 05/13/17 03:57 36.7 56 18 111/69 (83) 97 Room Air 05/13/17 00:01 97 Room Air 05/13/17 00:00 36.6 63 18 104/61 (75) 98 Room Air 05/12/17 20:00 97 Room Air 05/12/17 19:40 36.4 64 20 116/73 (87) 97 Room Air 05/12/17 16:00 97 Room Air 05/12/17 14:29 36.5 57 16 134/84 96 Room Air 05/12/17 13:15 36.5 57 16 134/84 (101) 97 Room Air 05/12/17 12:54 60 20 134/86 99 05/12/17 12:39 60 05/12/17 11:45 60 20 126/85 99 Room Air 05/12/17 10:38 51 22 125/77 98 Room Air 05/12/17 09:16 100 Room Air 05/12/17 08:51 65 05/12/17 08:49 37.1 64 16 170/104 100 Room Air Physical Exam General Appearance: WD/WN, no apparent distress Eyes: PERRL, EOMI ENT: hearing grossly normal, pharynx normal Neck: supple, no JVD Respiratory/Chest: chest non-tender, lungs clear, normal breath sounds Cardiovascular: regular rate, rhythm, no gallop, no murmur Abdomen: normal bowel sounds, non tender, soft Extremities: no pedal edema, no calf tenderness Neurologic/Psychiatric: form layer II-XII nml as tested, alert, oriented x 3 Laboratory Results Last 24 Hours Test 05/12/17 08:50 05/12/17 09:34 05/12/17 10:00 05/12/17 11:55 White Blood Count 10.27 K/uL Red Blood Count 5.20 M/uL Hemoglobin 15.9 g/dL Hematocrit 45.8 % Mean Corpuscular Volume 88.1 fL Mean Corpuscular Hemoglobin 30.6 pg Mean Corpuscular Hemoglobin Concent 34.7 g/dl Platelet Count 185 K/uL Mean Platelet Volume 11.0 fL Neutrophils (%) (Auto) 68.8 % Lymphocytes (%) (Auto) 23.5 % Monocytes (%) (Auto) 4.6 % Eosinophils (%) (Auto) 2.1 % Basophils (%) (Auto) 0.8 % Neutrophils # (Auto) 7.07 K/uL Lymphocytes # (Auto) 2.41 K/uL Monocytes # (Auto) 0.47 K/uL Eosinophils # (Auto) 0.22 K/uL Basophils # (Auto) 0.08 K/uL RDW Standard Deviation 43.9 fL RDW Coefficient of Variation 13.5 % Immature Granulocyte % (Auto) 0.2 % Immature Granulocyte # (Auto) 0.02 K/uL Prothrombin Time 10.5 SECONDS Prothromb Time International Ratio 1.0 Activated Partial Thromboplast Time 30.5 SECONDS Partial Thromboplastin Ratio 1.2 Sodium Level 141 mmol/L Potassium Level 3.7 mmol/L Chloride Level 108 mmol/L Carbon Dioxide Level 23 mmol/L Anion Gap 10.0 mmol/L Blood Urea Nitrogen 19 mg/dl Creatinine 1.30 mg/dl Est Creatinine Clear Calc Drug Dose 76.4 ml/min Estimated GFR () 76.4 Estimated GFR (Non- 65.9 BUN/Creatinine Ratio 14.4 Random Glucose 118 mg/dl Calcium Level 9.1 mg/dl Phosphorus Level 2.4 mg/dl Magnesium Level 2.2 mg/dl Total Creatine Kinase 163 U/L Creatine Kinase MB 0.7 ng/ml Troponin I < 0.015 ng/ml Thyroid Stimulating Hormone (TSH) 117.000 uIu/ml Free Thyroxine 0.39 ng/dl Free Triiodothyronine 2.06 pg/ml Lyme Disease IgG Antibody NEG Lyme Disease IgM Antibody NEG Bedside Glucose 106 mg/dl Urine Color YELLOW Urine Appearance CLEAR Urine pH 7.0 Urine Specific [place] 1.018 Urine Protein NEG Urine Glucose (UA) NEG Urine Ketones NEG Urine Occult Blood NEG Urine Nitrite NEG Urine Bilirubin NEG Urine Urobilinogen NEG Urine Leukocyte Esterase NEG Creatine Kinase MB Ratio Test 05/12/17 19:30 05/13/17 05:13 Creatine Kinase MB 1.3 ng/ml Creatine Kinase MB Ratio Troponin I < 0.015 ng/ml White Blood Count 7.84 K/uL Red Blood Count 4.74 M/uL Hemoglobin 14.7 g/dL Hematocrit 41.9 % Mean Corpuscular Volume 88.4 fL Mean Corpuscular Hemoglobin 31.0 pg Mean Corpuscular Hemoglobin Concent 35.1 g/dl RDW Standard Deviation 44.3 fL RDW Coefficient of Variation 13.5 % Platelet Count 162 K/uL Mean Platelet Volume 11.4 fL Sodium Level 141 mmol/L Potassium Level 4.0 mmol/L Chloride Level 108 mmol/L Carbon Dioxide Level 26 mmol/L Anion Gap 7.0 mmol/L Blood Urea Nitrogen 16 mg/dl Creatinine 1.30 mg/dl Est Creatinine Clear Calc Drug Dose 76.4 ml/min Estimated GFR () 76.4 Estimated GFR (Non- 65.9 BUN/Creatinine Ratio 12.4 Random Glucose 97 mg/dl Calcium Level 7.9 mg/dl Assessment and Plan Patient is a pleasant 46 y/o male, with PMHx of Raj thyroiditis, HTN, and GERD w/ esophagitis, who presented to the ED because of episodes of "blacking out" and left-sided CP. Episodes of syncope, this can happen at rest, initial workup negative, will pursue tilt table test and EEG - Head CT/ MRI head. unremarkable for acute intracranial findings - Consult neurology, Dr. Whiting concern for arrhythmia vs seizure but also confounded by hypothyroid state - Carotid US in 01/2017- unremarkable for significant stenosis - Stress ECHO on 01/24/17- unremarkable - Lyme screen negative - UA negative Raj's thyroiditis w/ TSH of 117, T4 0.39, and T3 2.06- noncompliant w/ medication: - IV 50 mcg Synthroid given and started Synthroid 100 mcg on 05/12 - Of note: patient's current treatment is Amour 30 mg daily- previous treatment was Synthroid 150 mcg Q2D and 175 Q2D- patient is unsure why medication was switched by PCP - Thyroid US on 04/14/17- 1. The thyroid gland is markedly heterogeneous in echotexture and appears hyperemic on color imaging. 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 2. No discrete thyroid lesion is identified. - Patient has appointment w/ [facility] on 05/18 HTN: Metoprolol 25 mg daily GERD w/ esophagitis- EGD in 01/2017: Protonix 40 mg daily and Zantac 150 mg daily DVT prophylaxis: Lovenox 40 mg SQ q24 hrs, MARLYS and SCDs Code Status: LEVEL I, FULL
--- NOTE | 2017-05-13 15:40 | EEG Procedure Note ---
EEG Procedure Note Date of Service May 13, 2017. Start / End Times Start Time: 2:33 P End Time: 2:53 P Referring Physician Ammon Whiting MD History seizure like episodes Home Medication List Scheduled Aspirin (Aspirin Ec), 650 MG PO BID Metoprolol Succinate (Toprol Xl), 25 MG PO QAM Pantoprazole (Protonix), 40 MG PO DAILY Ranitidine (Zantac), 150 MG PO DAILY Thyroid (Harbert Thyroid), 30 MG PO DAILY Inpatient Medication List Current Inpatient Medications Medications (Trade) Dose Ordered Sig/Jaja Route Start Time Stop Time Status Last Admin Dose Admin Enoxaparin Sodium (Lovenox Inj) 40 mg Q24H SC 05/12/17 14:00 06/11/17 13:59 05/13/17 13:25 40 MG Acetaminophen (Tylenol Tab) 650 mg Q4H PRN PO 05/12/17 12:00 06/11/17 11:59 Al Hydrox/Mg Hydrox/Simethicone (Maalox Max Susp) 15 ml Q4H PRN PO 05/12/17 12:00 06/11/17 11:59 Magnesium Hydroxide (Milk Of Magnesia Susp) 30 ml Q12H PRN PO 05/12/17 12:00 06/11/17 11:59 Ondansetron HCl (Zofran Inj) 4 mg Q6H PRN IV 05/12/17 12:00 06/11/17 11:59 Nitroglycerin (Nitrostat Tab) 0.4 mg UD PRN SL 05/12/17 12:00 06/11/17 11:59 Polyethylene (Miralax Powder Packet) 17 gm DAILY PRN PO 05/12/17 12:00 06/11/17 11:59 Levothyroxine Sodium (Synthroid Tab) 100 mcg DAILYBB PO 05/13/17 06:00 06/12/17 06:59 05/13/17 05:29 100 MCG Metoprolol Succinate (Toprol Xl Tab) 25 mg QAM PO 05/13/17 09:00 06/12/17 08:59 05/13/17 08:18 25 MG Pantoprazole Sodium (Protonix Tab) 40 mg DAILY PO 05/13/17 09:00 06/12/17 08:59 05/13/17 08:18 40 MG Ranitidine HCl (zANTac TAB) 150 mg DAILY PO 05/13/17 09:00 06/12/17 08:59 05/13/17 08:18 150 MG Aspirin/Aluminum/ Magnesium/Ca Carb (Ascriptin Tab) 325 mg DAILY PO 05/13/17 09:00 06/12/17 08:59 05/13/17 08:18 325 MG Nicotine (Nicoderm Cq 21MG Patch) 1 patch QAM TD 05/13/17 09:00 06/12/17 08:59 05/13/17 08:59 1 PATCH Miscellaneous (Remove Nicoderm Patch) 1 ea HS N/A 05/13/17 21:00 06/12/17 20:59 Lorazepam (Ativan Tab) 0.5 mg Q6 PRN PO 05/13/17 11:30 06/12/17 11:29 05/13/17 11:50 0.5 MG Lorazepam (Ativan Inj) 1 mg Q4H PRN IV 05/13/17 11:30 06/12/17 11:29 05/13/17 13:25 1 MG Lorazepam (Ativan Inj) 0.5 mg Q4H PRN IV 05/13/17 11:30 06/12/17 11:29 Lorazepam 1 mg/ Syringe 1 ml @ 1 mls/min Q4H PRN IV 05/13/17 11:45 06/12/17 11:44 Lorazepam 0.5 mg/ Syringe 1 ml @ 1 mls/min Q4H PRN IV 05/13/17 11:45 06/12/17 11:44 Description This is a 21 electrode EEG with a single channel dedicated to limited EKG. The electrodes were placed in accordance with the International 10-20 system. There is a posterior dominant rhythm of 10 Hz with a normal posterior to anterior organization and normal attenuation with eye opening. Photic stimulation is performed and is unremarkable. There is a normal appearing symmetric beta rhythm as well. There is minimal movement artifact. There is rare, intermittent right occipital delta slowing. Interpretation This bedside EEG appears essentially normal. The rare, right occipital delta slowing is of unlikely significance. No epileptiform abnormalities observed. Clinical Correlation This bedside EEG does not provide convincing evidence of epilepsy or seizure disorder in this individual. If clinical suspicion for epilepsy remains, then extended ambulatory EEG should be considered.
--- NOTE | 2017-05-13 16:05 | DIAGNOSTIC IMAGING REPORT ---
Renal arterial Doppler DUPLEX RENAL ARTERY CLINICAL HISTORY: eval for arterial stenosis with episodic htn hypertension TECHNIQUE: Renal arterial Doppler COMPARISON STUDY: None FINDINGS: Normal velocity and Doppler characteristics throughout. Impedance characteristics are within normal limits. IMPRESSION: Normal study Electronically signed by: Luis Daniel Peter M.D. 05/13/2017 4:04 PM Dictated Date/Time: 05/13/2017 4:03 PM
[2017-05-14] VITALS (11 sets, daily range): BP systolic 111–129; BP diastolic 62–84; PULSE 58–70; TEMP 36.4–36.7; O2SAT 96–98
[2017-05-14] MEDS: LEVOTHYROXINE 100 MCG TAB PO SCH (05:50)
[2017-05-14 06:20] LABS: HEMATOCRIT 42.4 % (42-52); MEAN CELL VOLUME 87.8 fL (80-100); MEAN CORPUSCULAR HEMOGLOBIN 31.1 pg (25-34); MEAN CORPUSCULAR HGB CONC 35.4 g/dl (32-36); MEAN PLATELET VOLUME 11.1 fL (7.4-10.4); PLATELET COUNT 175 K/uL (130-400); RED BLOOD COUNT 4.83 M/uL (4.7-6.1); WHITE BLOOD COUNT 7.84 K/uL (4.8-10.8)
[2017-05-14 07:06] LABS: BUN/CREATININE RATIO 13.4 (10-20); CALCIUM 8.1 mg/dl (8.5-10.1); CREATININE 1.2 mg/dl (0.60-1.40); POTASSIUM 3.4 mmol/L (3.5-5.1)
--- NOTE | 2017-05-14 07:35 | Progress Note ---
Subjective Date of Service: May 14, 2017. Subjective pt has not had recurrence of his symptoms, he has not exerted himself, he has mylagias most notably left pectoralis, this is not new but is more painful, on exam he has painful muscles in many locations and none more concerning that others, no focal swelling discovered Problem List Medical Problems: (1) Left sided chest pain Status: Acute (2) Metabolic encephalopathy Status: Acute Review of Systems Constitutional: + weakness, + fatigue, No fever, No chills Respiratory: No cough, No shortness of breath Cardiac: No chest pain, No edema Abdomen: No pain, No nausea, No vomiting, No diarrhea Musculoskeletal: + muscle pain, + calf pain, No joint pain, No swelling Male : No dysuria, No urinary frequency Neurologic: No memory loss, No paralysis Psychiatric: + depression symptoms, No anhedonism Objective Vital Signs Date Time Temp Pulse Resp B/P (MAP) Pulse Ox O2 Delivery O2 Flow Rate FiO2 05/14/17 04:00 96 Room Air 05/14/17 03:32 36.4 70 16 111/62 (78) 96 Room Air 05/14/17 00:01 97 Room Air 05/13/17 23:38 36.4 61 16 115/81 (92) 95 Room Air 05/13/17 20:00 97 Room Air 05/13/17 19:45 36.6 58 18 115/78 (90) 97 Room Air 05/13/17 16:08 36.4 63 18 128/83 (98) 96 Room Air 05/13/17 16:00 97 Room Air 05/13/17 12:00 98 Room Air 05/13/17 11:55 36.5 65 19 138/85 (102) 96 Room Air 05/13/17 08:00 97 Room Air 05/13/17 07:59 36.7 64 18 137/89 (105) 99 Room Air Physical Exam General Appearance: WD/WN, + mild distress Eyes: PERRL, EOMI Neck: supple, no JVD Respiratory/Chest: chest non-tender, lungs clear, normal breath sounds Cardiovascular: regular rate, rhythm, no murmur Abdomen: normal bowel sounds, non tender Extremities: no pedal edema, no calf tenderness Neurologic/Psychiatric: alert, oriented x 3 Skin: normal color, warm/dry, no rash Laboratory Results Last 24 Hours Test 05/14/17 05:45 White Blood Count 7.84 K/uL Red Blood Count 4.83 M/uL Hemoglobin 15.0 g/dL Hematocrit 42.4 % Mean Corpuscular Volume 87.8 fL Mean Corpuscular Hemoglobin 31.1 pg Mean Corpuscular Hemoglobin Concent 35.4 g/dl RDW Standard Deviation 43.5 fL RDW Coefficient of Variation 13.4 % Platelet Count 175 K/uL Mean Platelet Volume 11.1 fL Sodium Level 142 mmol/L Potassium Level 3.4 mmol/L Chloride Level 107 mmol/L Carbon Dioxide Level 27 mmol/L Anion Gap 8.0 mmol/L Blood Urea Nitrogen 16 mg/dl Creatinine 1.20 mg/dl Est Creatinine Clear Calc Drug Dose 82.8 ml/min Estimated GFR () 84.1 Estimated GFR (Non- 72.6 BUN/Creatinine Ratio 13.4 Random Glucose 90 mg/dl Calcium Level 8.1 mg/dl Assessment and Plan Patient is a pleasant 46 y/o male, with PMHx of Raj thyroiditis, HTN, and GERD w/ esophagitis, who presented to the ED because of episodes of "blacking out" and left-sided CP. The chest pain is muscular and reproducible Episodes of syncope, this can happen at rest, initial workup negative, will pursue tilt table test and EEG - Head CT/ MRI head. unremarkable for acute intracranial findings - Consult neurology, Dr. Whiting concern for arrhythmia vs seizure but also confounded by hypothyroid state - Carotid US in 01/2017- unremarkable for significant stenosis - Stress ECHO on 01/24/17- unremarkable - Lyme screen negative - UA negative consult EP for consideration of tilt table testing Raj's thyroiditis w/ TSH of 117, T4 0.39, and T3 2.06- noncompliant w/ medication: - IV 50 mcg Synthroid given and started Synthroid 100 mcg on 05/12 - Of note: patient's current treatment is Amour 30 mg daily- previous treatment was Synthroid 150 mcg Q2D and 175 Q2D- patient is unsure why medication was switched by PCP - Thyroid US on 04/14/17- 1. The thyroid gland is markedly heterogeneous in echotexture and appears hyperemic on color imaging. 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 2. No discrete thyroid lesion is identified. - Patient has appointment w/ [facility] on 05/18 chest pain with painful pectoralis, check ck and esr, if abnormal may pursure other testing for myositis HTN: good control Metoprolol 25 mg daily GERD w/ esophagitis- asymptomatic EGD in 01/2017: Protonix 40 mg daily and Zantac 150 mg daily DVT prophylaxis: Lovenox 40 mg SQ q24 hrs, MARLYS and SCDs Code Status: LEVEL I, FULL
[2017-05-14] MEDS: NICOTINE 21 MG/24 HR TDSY TD SCH (08:53)
[2017-05-14] MEDS: ASPIRIN/ALUM/MAGNES/CAL CARB 325 MG TAB PO SCH (08:53)
[2017-05-14] MEDS: METOPROLOL SUCC 25MG EXT REL TAB PO SCH (08:53)
[2017-05-14] MEDS: PANTOprazole SOD 40 MG TAB PO SCH (08:53)
[2017-05-14] MEDS: RANITIDINE HCL 150 MG TAB PO SCH (08:53)
[2017-05-14] MEDS: POTASSIUM CHLORIDE 20 MEQ TABCR PO SCH ×2 (14:51→21:51)
[2017-05-14] MEDS: ENOXAPARIN 40 MG/0.4 ML SYR SC SCH (14:52)
[2017-05-15] VITALS (8 sets, daily range): BP systolic 111–126; BP diastolic 67–81; PULSE 56–73; TEMP 36.4–37; O2SAT 95–98
[2017-05-15] MEDS: LEVOTHYROXINE 100 MCG TAB PO SCH (06:13)
[2017-05-15 06:47] LABS: MEAN CELL VOLUME 88.3 fL (80-100); MEAN CORPUSCULAR HEMOGLOBIN 29.9 pg (25-34); MEAN CORPUSCULAR HGB CONC 33.9 g/dl (32-36); MEAN PLATELET VOLUME 10.8 fL (7.4-10.4); PLATELET COUNT 182 K/uL (130-400); RED BLOOD COUNT 5.21 M/uL (4.7-6.1); WHITE BLOOD COUNT 8.48 K/uL (4.8-10.8)
[2017-05-15 07:28] LABS: BUN/CREATININE RATIO 10.3 (10-20); CALCIUM 8.7 mg/dl (8.5-10.1); CREATININE 1.4 mg/dl (0.60-1.40); POTASSIUM 4.3 mmol/L (3.5-5.1)
[2017-05-15] MEDS: PANTOprazole SOD 40 MG TAB PO SCH (09:00)
[2017-05-15] MEDS: NICOTINE 21 MG/24 HR TDSY TD SCH (09:29)
[2017-05-15] MEDS: METOPROLOL SUCC 25MG EXT REL TAB PO SCH (09:29)
[2017-05-15] MEDS: POTASSIUM CHLORIDE 20 MEQ TABCR PO SCH (09:29)
[2017-05-15] MEDS: ASPIRIN/ALUM/MAGNES/CAL CARB 325 MG TAB PO SCH (09:29)
[2017-05-15] MEDS: RANITIDINE HCL 150 MG TAB PO SCH (09:29)
--- NOTE | 2017-05-15 10:58 | CARDIOLOGY CONSULTATION ---
DATE OF CONSULTATION: 05/15/2017 REFERRING PHYSICIAN: Joe Shepard MD CHIEF COMPLAINT: Syncope. HISTORY OF PRESENT ILLNESS: Mr. Amanda Krishnamurthy is a 46-year-old gentleman, without any documented cardiac history who has been experiencing episodes of unresponsiveness for several months. The patient was admitted in December of this year with symptoms of chest discomfort. During that hospitalization, he underwent stress testing which did not reveal any evidence of cardiac disease. The patient's symptoms were felt to be musculoskeletal. He was referred for a GI evaluation and eventually placed on Protonix. Over the ensuing months, the patient apparently had occasional episodes of unresponsiveness. He described these as a sense of mild lightheadedness, pounding in his chest, some left sided chest discomfort and then a period of confusion while he regains his bearings. The episodes themselves were witnessed by family members; they report pupillary dilation as well as unresponsiveness. He does not appear to loose postural tone. The patient stated that most of these episodes occur while he is sitting. 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 The patient has had his blood pressure and pulse taken during these episodes, in fact had a witnessed episode last evening in the hospital. Hemodynamically he appears to be stable during these episodes. Blood pressure and pulse are normal. Last night's episode was witnessed by the nursing staff and by their report he was interactive, but his affect was off and he was somewhat confused. Once again he did not lose consciousness. The patient feels that some of his symptoms may be related to medications. He has subsequently stopped his thyroid supplementation and his Protonix. He feels that the symptoms are worse when he is taking these medications. In addition to the aforementioned unresponsiveness, the patient continues to complain of left-sided chest discomfort. This is described as axillary in nature with some discomfort at the xiphoid process. The discomfort is fairly focal and described as sharp. Often at times, it is associated with activities such as driving his truck. Due to the persistent nature of his left-sided chest discomfort, he has come to drive his truck with the right arm and now has some similar symptoms in the right pectoral area. The patient did also have some symptoms of mild dizziness intermittently which appear to have resolved currently. He states that he feels better on medications that have been started during this hospitalization, presumably metoprolol. In general, the patient is an active individual, who drives a truck by occupation. He is accustomed to heavy work and working on automobiles. He denies any new limitations associated with these type of activities. He denies exertional chest pain or exertional dyspnea. PAST MEDICAL HISTORY: Significant for gastroesophageal reflux disease, Raj's thyroiditis currently on supplementation, esophageal dysmotility, gastritis, hyperlipidemia and hypertension. PAST SURGICAL HISTORY: Significant for breast surgery and lumpectomy as a child. OUTPATIENT MEDICATIONS: Include armour thyroid and pantoprazole. MEDICAL ALLERGIES: INCLUDE PENICILLIN. SOCIAL HISTORY: The patient does have a history of tobacco use recently abstinent. He denies alcohol abuse. He is currently employed as a truck driver salesperson. FAMILY HISTORY: No premature coronary disease. Apparently, his brother does have seizure disorder, however no other history of sudden cardiac or frequent syncope. REVIEW OF SYSTEMS: A complete review of systems was performed, the pertinent positives noted in the history of present illness and the remainder being negative. PHYSICAL EXAMINATION: GENERAL: The patient does not appear in acute distress. He is a pleasant individual who is alert and oriented. His mood and affect appeared normal. He answered all questions appropriately. VITAL SIGNS: Include a blood pressure of 126/73 with a pulse of 60. HEENT: Sclerae are anicteric. Pupils are equal and reactive to light and accommodation. Extraocular movements are intact. Palpation of submandibular region did not reveal any significant lymphadenopathy. The carotids are palpable bilaterally. I do not appreciate any bruits on auscultation. NECK: There is no evidence of jugular venous distention. Thyroid was not enlarged. NEUROLOGIC: Examination revealed the cranial nerves to be intact. LUNGS: Auscultation of his lungs revealed clear lung gilbert with normal respiratory effort, no use of accessory muscles. There were no rales, wheezes or rhonchi. CARDIAC: Revealed him to be in a regular rhythm. There were no murmurs appreciated. S1, S2 appeared to be normal. The PMI was not displaced on palpation. ABDOMEN: Soft and nontender. EXTREMITIES: Evaluation of both wrists revealed radial pulses are equal in intensity. There is no evidence of cyanosis or clubbing. Evaluation of the lower extremities did not reveal any significant peripheral edema. SKIN: I do not appreciate any rashes on examination today. LABORATORY STUDIES: Today include a white cell count of 8.4, hemoglobin of 15 and a platelet count of 182. Sodium was 140, potassium was 4.3, BUN was 14 and creatinine was 1.4. Cardiac troponin was less than detectable limit at the time of admission. The patient did undergo both brain MRI and CT scanning which did not reveal any notable abnormalities. The patient also underwent a chest x-ray which did not reveal any evidence of fracture or pulmonary process. EKG was obtained at the time of admission which revealed the patient to be in a sinus rhythm. There was an incomplete right bundle branch block. No other notable abnormalities. An echocardiogram was also obtained during this admission which revealed basically a normal study with normal biventricular function and no significant valvular disease. The patient did undergo a stress echocardiography in December of this year; this was also a normal study without evidence of inducible ischemia or symptom. ASSESSMENT AND PLAN: 1. Palpitations: The patient does report symptoms of palpitations; however, during his monitoring in the hospital and the presence of these symptoms there was no arrhythmia. There was some debate as to whether the patient may have occult atrial fibrillation. It is certainly possible that he has an occult arrhythmia however, once again his symptoms in the hospital do not correlate with any arrhythmia. He could be sent home with an event monitor in order to better elucidate any persistent symptoms of palpitations, however at this point, I doubt this is playing a role in his episodes. 2. Unresponsiveness; the patient has periods of unresponsiveness seem to involve a change in his cognition. This did not appear to be actual syncope. He has not lost postural tone. His vital signs during these episodes are essentially normal. At this point, I would not advocate additional testing or other cardiac evaluation for these symptoms. He has a normal echocardiogram and normal stress test which places him in a category of low risk for syncope or events of that nature. 3. Chest pain; this is likely musculoskeletal given his description. He has had an evaluation for these same symptoms previously which did not reveal any evidence of inducible ischemia. I would not advocate any additional cardiac evaluation at this time. 4. Hypertension; the patient claims to have elevated blood pressure during periods of unresponsiveness. He has been started on metoprolol during this hospitalization which will need to be watched cautiously given his relative bradycardia and significant hypothyroidism. No indication for metoprolol from a cardiac standpoint other than treatment of high blood pressure. 5. Bradycardia; the patient does have periods of bradycardia and overall low heart rate response, possibly due to his lack of activity during hospitalization. Undoubtedly, some of this is related to his severe hypothyroidism that is suspected to improve with supplementation. MTDD
[2017-05-15] MEDS ORDERED: SYN100 PO (12:14)
[2017-05-15] MEDS ORDERED: ASPI325T60 PO (12:14)
--- NOTE | 2017-05-15 12:30 | Discharge Instructions ---
Discharge Instructions Date of Service May 15, 2017. Admission Reason for Admission: Chest Pain, Metabolic Encephalopathy Discharge Discharge Diagnosis / Problem: Chest Pain and Lightheadedness Discharge Goals Goal(s): Decrease discomfort, Improve function, Increase independence Activity Recommendations Activity Limitations: resume your previous activity . Instructions / Follow-Up Instructions / Follow-Up Lightheadedness, Sweating, Blanking Out: - Neurological work up has not revealed evidence of seizures or abnormalities in the brain or vessels supplying blood to the brain - These symptoms can be related to your severe hypothyroid state - You will set up with an event monitor to monitor your heart for any abnormal heart rhythms. This device will be sent to you and evaluated by Cardiology Hypothyroidism due to Raj's Thyroiditis: - Your TSH was 117. A normal range is 0.3 to 4.5 - Hypothyroidism can affect every part of your body: SIGNS AND SYMPTOMS INCLUDE - This can explain a lot of the symptoms you present with Fatigue Increased sensitivity to cold Constipation Dry skin Weight gain Puffy face Hoarseness Muscle weakness Elevated blood cholesterol level Muscle aches, tenderness and stiffness Pain, stiffness or swelling in your joints Thinning hair Slowed heart rate Depression Impaired memory - It is important to know that it can take several weeks once starting medication to get back to a normal level. And likely even prior to stopping this medication you may not have had a high enough dose. - You will need to have your TSH checked in 6 weeks by your family doctor or by the labor relations director -- DO NOT MISS THIS APPOINTMENT WITH ENDOCRINOLOGY Home Medications: - Please take your home medications as prescribed. If you have questions or concerns please discuss with your family doctor prior to stopping them Follow-Up: Cardiology Dr Arnav Fox June 13 1115am [address] [facility] [id number]. [phone] Current Hospital Diet Patient's current hospital diet: Regular Diet Discharge Diet Recommended Diet: Regular Diet Pending Studies Studies pending at discharge: no Medical Emergencies . Who to Call and When: Medical Emergencies: If at any time you feel your situation is an emergency, please call 911 immediately. . Non-Emergent Contact Non-Emergency issues call your: Primary Care Provider Call Non-Emergent contact if: you have a fever, your pain is concerning you, you have any medication questions . . "Provider Documentation" section prepared by Kavita Cuevas - Attending Attestation: Discharge care plan d/w MARÍA Cuevas on day of discharge and I agree with her discharge instructions as outlined. Joe Shepard MD . VTE Core Measure Inpt VTE Proph given/why not?: Enoxaparin (Lovenox)SQ, T.ENe. Yessica, SCD's
[2017-05-15] MEDS ORDERED: LEVO50TA PO (13:46)
[2017-05-15] MEDS: ENOXAPARIN 40 MG/0.4 ML SYR SC SCH (14:00)
--- NOTE | 2017-05-15 16:47 | Discharge Summary ---
Discharge Summary Date of Service May 15, 2017. (Kavita Cuevas PA-C) Discharge Summary Admission Date: May 12, 2017 at 12:06 Discharge Date: May 15, 2017 Discharge Disposition: Home Principal Diagnosis: Hypothyroidism Problems/Secondary Diagnoses: 1. Rja Thyroiditis 2. HTN 3. GERD with Esophagitis 4. Anal Fissure Procedures: 1. Brain MRI WITH AND WITHOUT CONTRAST FINDINGS: There are no areas of restricted diffusion to suggest acute infarction. The midline structures are intact. Small retention cysts within the right maxillary sinus.. The mastoid air cells are clear. The ventricles and sulci are within normal limits for age. There is no mass, hematoma, midline shift. The major vascular flow-voids at the skull base are well maintained. Postcontrast sequences show no areas of abnormal enhancement. IMPRESSION: No acute intracranial abnormality. 2. DUPLEX RENAL ARTERY FINDINGS: Normal velocity and Doppler characteristics throughout. Impedance characteristics are within normal limits. IMPRESSION: Normal study 3. LEFT RIBS UNILATERAL WITH PA CHEST FINDINGS: Negative chest. Negative left ribs. IMPRESSION: Negative study 4. ECHOCARDIOGRAM * -- Conclusions -- * 1. Normal LV size and wall thickness. * 2. Normal LV systolic function. LVEF 55-60%. No regional wall motion abnormalities. * 3. Normal RV size and function. * 4. Trace MR, Trace TR. * 5. Normal estimated RA and PA pressures. * 6. Compared with prior study on 01/25/2017: No significant changes. 5. EEG This is a 21 electrode EEG with a single channel dedicated to limited EKG. The electrodes were placed in accordance with the International 10-20 system. There is a posterior dominant rhythm of 10 Hz with a normal posterior to anterior organization and normal attenuation with eye opening. Photic stimulation is performed and is unremarkable. There is a normal appearing symmetric beta rhythm as well. There is minimal movement artifact. There is rare, intermittent right occipital delta slowing. This bedside EEG appears essentially normal. The rare, right occipital delta slowing is of unlikely significance. No epileptiform abnormalities observed. Consultations: 1. Neurology 2. Cardiology (Kavita Cuevas PA-C) Problems/Secondary Diagnoses: spells of facial flushing, pupillary dilatation, etc - etiology uncertain, 24- hour urine completed for Carcinoid Syndrome & Pheochromocytoma - results pending at discharge. (Joe Shepard MD) Medication Reconciliation New Medications: Levothyroxine Sodium (Synthroid) 50 Mcg Tab 50 MCG PO DAILY for 30 Days, #30 TAB Aspirin Buffered (Castillo Carb-Mag (Tri-Buffered Aspirin) 1 Tab Tab 325 MG PO DAILY for 30 Days, #30 TAB Continued Medications: Metoprolol Succinate (Toprol Xl) 25 Mg Tabcr 25 MG PO QAM Pantoprazole (Protonix) 40 Mg Tab 40 MG PO DAILY Ranitidine (Zantac) 150 Mg Tab 150 MG PO DAILY, TAB Discontinued Medications: Aspirin (Aspirin Ec) 325 Mg Tab 650 MG PO BID Thyroid ([place] Thyroid) 30 Mg Tab 30 MG PO DAILY Discharge Exam Review of Systems: Constitutional: + sweats (intermittent), + fatigue, No fever, No chills Eyes: No worsening of vision, No eye pain ENT: No nasal symptoms, No sore throat, No trouble swallowing Respiratory: No cough, No shortness of breath Cardiovascular: + chest pain (L sided near axilla - sharp sensation), + palpitations (intermittent and "fluttering" sensation) Abdomen: + constipation, + GI bleeding (BRBPR with wiping), + problem reported (reports a "lump" in LUQ and was told it is a fat deposit), No pain, No nausea, No vomiting, No diarrhea Musculoskeletal: + muscle pain (L pectoral muscle), No swelling, No calf pain Genitourinary - Male: + problem reported (reports a "bump" that is intermittently painful at 12 o'clock position of anus), No dysuria Neurologic: + vertigo (and lightheadedness) Endocrine: + fatigue Hematologic / Lymphatic: No abnormal bleeding/bruising, No clotting problems Integumentary: No rash Physical Exam: General Appearance: WD/WN, no apparent distress Eyes: sclerae normal ENT: hearing grossly normal Neck: supple, no JVD, trachea midline Respiratory/Chest: lungs clear, normal breath sounds, no respiratory distress, no accessory muscle use, + pertinent finding (chest is tender to palpation specific to approx 2nd-3rd intercostal space close to axilla; L pectoralis muscle appears larger compared to R) Cardiovascular: regular rate, rhythm, no gallop, no murmur Abdomen / GI: normal bowel sounds, non tender, soft, + pertinent finding ( unable to appreciate lump in LUQ and not evidence of abdominal wall compomise to palpation; with straining no hernial bulges of the abdomen visualized; unable to appreciate lump around anus reported by patient, no external hemorrhoids, evidence of anal fissure extending posteriorly; did not perform digital rectal exam) Extremities: no calf tenderness, no pedal edema Neurologic/Psychiatric: alert, oriented x 3 Skin: normal color, warm/dry (Kavita Cuevas, FARHEEN) Hospital Course ADMISSION: Patient is a pleasant 46 y/o male, with PMHx of Raj thyroiditis , HTN, and GERD w/ esophagitis, who presented to the ED because of episodes of "blacking out" and left-sided CP. The patient was seen in January 2017 because of left-sided CP. At that time a full workup was unremarkable for cardiac events. His main complaint at this time is his blackout episodes. The patient states since December he has been experiencing these episodes where he experiences left -sided CP, palpations, and generalized weakness. He takes 650 mg ASA BID and his CP improves. Over the course of several months, these episodes have been worsening and he now is starting to "black out." According to his , his pupils become dilated and his stares forward w/ no response. After the fact, the patient is slightly confused, but slowly gains consciousness and can answer questions appropriately. His BP also becomes elevated. During today's event, BP was 188/112. Denies bowel/urine incontinence. Patient denies any fever, chills, sweats, lightheadedness, dizziness, vision changes, edema, SOB, wheezing, cough , abdominal pain, nausea, vomiting, diarrhea, urinary symptoms, melena, numbness /tingling, muscle/joint pain, anxiety/depression, active bleeding, or new skin discoloration/changes. Of note, the patient quit taking his thyroid medication 1 month ago because the thought symptoms were attributed to that. Patient has been on thyroid medication since 2002 and episodes just started in 2016. He is to follow-up with [facility] on 05/18. Patient quit taking his Metoprolol as well because other than these events, his BP is well controlled. Patient also quit taking his Protonix for a while because he thought symptoms might be attributed to that. However, symptoms began before starting Protonix. HOSPITAL COURSE: Mr. Krishnamurthy was admitted for syncopal episodes precipitated by L-sided CP that has been an ongoing complaint since December. Every "black out" episode is preceded by this L sided CP with associated palpitations, diaphoresis , pupil dilation, and confusion. An episode was visualized by nursing staff during admission and patient had confusion but no LOC or post-ictal findings. Possible vasovagal response precipitated by pain? On a previous admission patient had a complete cardiac workup due to chest pain that was unremarkable. He was initiated on a short steroid taper for consideration for cervicalgia and patient stated "I've never felt better then when I took that" and reports all symptoms resolved temporarily with steroids. ESR only 2 on labs. TSH noted to be 117 on admission and Synthroid was started at 100 mcg. Patient reporting that he felt more lightheadedness since this medication was instituted. He was discharged on Synthroid 50 mcg daily with plans for increase per endocrinology or his PCP. Plan for TSH recheck in 6 weeks. Suspect symptoms related to severe hypothyroidism due to medication non-compliance. He stopped Protonix and Metoprolol in addition to [place] due to thinking his symptoms were medication related. Educated patient on signs and symptoms of hypothyroidism both verbally and on discharge instructions. During admission no arrhythmias appreciated but consideration for occult arrhythmia and an event monitor was ordered. Given non- compliance issues he is at high risk for readmission. Total Time Spent: Greater than 30 minutes This includes examination of the patient, discharge planning, medication reconciliation, and communication with other providers. (Kavita Cuevas, LOGANC) Attending Attestation and Discharge Note: Pt seen/examined, chart reviewed, and care plan d/w MARÍA Cuevas on day of discharge. I agree w/ the galeas components of her discharge documentation. 46yo male with history of hypothyroidism who presented with increasing frequency of "blacking out" spells, chest pain, diaphoresis/facial flushing, etc. Upon admission his TSH was markedly elevated past 100. He underwent extensive cardiac work-up as noted above with largely normal results. He was seen in consultation by neurology and cardiology. Outpatient event monitor is planned for after discharge. He completed a 24-hour urine to rule out pheochromocytoma and carcinoid syndrome - results are pending at time of discharge. He was counseled that he desperately needs to be complaint with his synthroid as many of his symptoms are likely due to his decompensated thyroid state. Discharge exam: gen - nad heart - RRR, s1, s2 lungs - CTA b/l abd - soft, NT, ND, BS+ ext - no edema neuro - strength 5/5 x 4 exts Joe Shepard MD (Joe Shepard MD) Discharge Instructions Please refer to the electronic Patient Visit Report (Discharge Instructions) for additional information. (Kavita Cuevas PA-C) Additional Copies To Devika Ballesteros PA-C; Alicia Schwarz M.D.; Abdullahi Walker M.D.
[2017-05-17 15:04] LABS: EHRLICHIA CHAFF IGG AB <1:64 (<1:64); EHRLICHIA CHAFF IGM AB <1:20 (<1:20)
[2017-05-19 13:12] LABS: 5-HIAA 3.4 mg/24 h (<=6.0); VANILMANDELIC ACID (VMA) 3.1 mg/24 h (<=6.0)
[2017-05-23] MEDS ORDERED: ASPI325T39 PO (10:40)
[2017-05-23] MEDS ORDERED: LEVO75CA2 PO (10:40)
== END 2017-05-15 16:14 | disposition home or self-care (01) | DRG 643 ==
LOC: C.EDA 08:46 → C.2E 12:06 → ENRESERV 12:35
PROVIDERS: ADMIT Internal Medicine; ATTEND Internal Medicine
DX: E03.9 Hypothyroidism, unspecified (principal); E06.3 Autoimmune thyroiditis; I10 Essential (primary) hypertension; G93.41 Metabolic encephalopathy; F17.200 Nicotine dependence, unspecified, uncomplicated; Z91.14 Patient's other noncompliance with medication regimen; K60.2 Anal fissure, unspecified; K21.0 Gastro-esophageal reflux disease with esophagitis; Z88.0 Allergy status to penicillin; R00.1 Bradycardia, unspecified; R56.9 Unspecified convulsions

== ENCOUNTER → 2017-05-25 | Day surgery (SDC) | payer BC ==
[2017-05-23 10:41] VITALS: Ht 185.4 cm; Wt 88.6 kg
[~2017-05-25] VITALS: Ht 185.4 cm; Wt 88.6 kg
[~2017-05-25] MED LIST changes: +ASPI325T39 PO; -CYCL5TAB PO; -LEVO150T9 PO; -LEVO175T3 PO; +LEVO75CA2 PO; +LIDOCAINE HCL 2% 2 ML VIAL (20MG/ML) ONE; -METO25TA3 PO; -OMEP20TA PO; +PROPOFOL IV EMULSION 10 MG/ML 20 ML VIAL IV ONE; +SODIUM CHLORIDE 0.9% 500ML 500 ML IV ONE; -SUCR1TAB PO; +ZNTT/150 PO
--- NOTE | 2017-05-25 12:45 | Endo History and Physical ---
History & Physical Date of Service: May 25, 2017. Chief Complaint: ABD pain, Change in bowel habits Referring Physician: Peg History of Present Illness 46 yo CM who presents for colonoscopy secondary to abdominal pain and change in bowel habits. Past Surgical History Hx Cardiac Surgery: No Hx Internal Defibrillator: No Hx Pacemaker: No Hx Abdominal Surgery: No Hx of Implantable Prosthesis: No Hx Post-Op Nausea and Vomiting: No Hx Cancer Surgery: No Hx Thoracic Surgery: No Hx Orthopedic: No Hx Urinary Tract Surgery: No Family History None Social History Smoking Status: Current Every Day Smoker Hx Substance Use: No Hx Alcohol Use: No Allergies Coded Allergies: Penicillins (Unverified Allergy, Unknown, HAPPENED CHILD - PT DOESN'T REMEMBER, 05/23/17) Current Medications Reported Home Medications Medications Dose Route/Sig Max Daily Dose Days Date Category Aspirin Ec (Aspirin) 325 Mg Tab 325 Mg PO QAM 05/23/17 Reported Tirosint (Levothyroxine Sodium) 75 Mcg Cap 75 Mcg PO QAM 05/23/17 Reported Zantac (Ranitidine HCl) 150 Mg Tab 150 Mg PO BID 05/12/17 Reported Vital Signs Weight (Kilograms): 88.64 Height (Feet): 6 Height (Inches): 1 Date Time Temp Pulse Resp B/P (MAP) Pulse Ox O2 Delivery O2 Flow Rate FiO2 05/25/17 12:28 36.6 85 20 119/76 (90) 97 Room Air Physical Exam General Appearance: WD/WN, no apparent distress Respiratory/Chest: Auscultation: breath sounds normal Cardiovascular: Heart Auscultation: RRR Abdomen: Bowel Sounds: normal Inspection & Palpation: soft, non-distended, no tenderness, guarding & rebound Assessment and Plan Assessment: 46 yo CM who presents for colonoscopy secondary to abdominal pain and change in bowel habits. Plan: Proceed with colonoscopy.
--- NOTE | 2017-05-25 13:26 | GI REPORT ---
Procedure Date: 05/25/2017 12:51 PM Procedure: Colonoscopy Indications: Generalized abdominal pain, Change in bowel habits Medicines: Monitored Anesthesia Care Complications: No immediate complications. Estimated Blood Loss: Estimated blood loss: none. Procedure: Pre-Anesthesia Assessment: - Prior to the procedure, a History and Physical was performed, and patient medications and allergies were reviewed. The patient's tolerance of previous anesthesia was also reviewed. The risks and benefits of the procedure and the sedation options and risks were discussed with the patient. All questions were answered, and informed consent was obtained. Prior Anticoagulants: The patient has taken aspirin, last dose was 2 days prior to procedure. ASA Grade Assessment: II - A patient with mild systemic disease. After reviewing the risks and benefits, the patient was deemed in satisfactory condition to undergo the procedure. After I obtained informed consent, the scope was passed under direct vision. Throughout the procedure, the patient's blood pressure, pulse, and oxygen saturations were monitored continuously. The scope was introduced through the anus and advanced to the terminal ileum. The colonoscopy was performed without difficulty. The patient tolerated the procedure well. The quality of the bowel preparation was good. The terminal ileum, ileocecal valve, appendiceal orifice, and rectum were photographed. Findings: A 5 mm polyp was found in the transverse colon. The polyp was sessile. The polyp was removed with a hot snare. Resection and retrieval were complete. Non-bleeding internal hemorrhoids were found during retroflexion. The hemorrhoids were small. Impression: - One 5 mm polyp in the transverse colon, removed with a hot snare. Resected and retrieved. - Non-bleeding internal hemorrhoids. Recommendation: - Resume previous diet. - Continue present medications. - Repeat colonoscopy for surveillance based on pathology results. - Return to primary care physician as previously scheduled. Kashmir Ríos DO 05/25/2017 1:26:17 PM This report has been signed electronically. Note Initiated On: 05/25/2017 12:51 PM I attest to the content of the Intraoperative Record and orders documented therein, exceptions below
--- NOTE | 2017-05-25 13:47 | Anesthesiology Progress Note ---
Anesthesia Post Op Note Date & Time May 25, 2017 at 13:47 Vital Signs Pain Intensity: 0 Vital Signs Past 12 Hours Date Time Temp Pulse Resp B/P (MAP) Pulse Ox O2 Delivery O2 Flow Rate FiO2 05/25/17 13:44 72 20 109/76 (87) 98 Room Air 05/25/17 13:30 73 20 108/68 (81) 98 Room Air 05/25/17 12:28 36.6 85 20 119/76 (90) 97 Room Air Notes Mental Status: alert / awake / arousable, participated in evaluation Pt Amnestic to Procedure: Yes Nausea / Vomiting: adequately controlled Pain: adequately controlled Airway Patency, RR, SpO2: stable & adequate BP & HR: stable & adequate Hydration State: stable & adequate Anesthetic Complications: no major complications apparent
--- NOTE | 2017-05-25 13:56 | Discharge Instructions ---
Endoscopy Patient Instructions Date / Procedure(s) Performed May 25, 2017. Colonoscopy Allergy Information Coded Allergies: Penicillins (Unverified Allergy, Unknown, HAPPENED CHILD - PT DOESN'T REMEMBER, 05/23/17) Discharge Date / Findings May 25, 2017. Colon polyp Internal hemorrhoids Medication Instructions OK to resume all medications today as prescribed Reported Home Medications Medications Dose Route/Sig Max Daily Dose Days Date Category Aspirin Ec (Aspirin) 325 Mg Tab 325 Mg PO QAM 05/23/17 Reported Tirosint (Levothyroxine Sodium) 75 Mcg Cap 75 Mcg PO QAM 05/23/17 Reported Zantac (Ranitidine HCl) 150 Mg Tab 150 Mg PO BID 05/12/17 Reported Provider Instructions Activity Restrictions - No exercising or heavy lifting for 24 hours. - Do not drink alcohol the day of the procedure. - Do not drive a car or operate machinery until the day after the procedure. - Do not make any important decisions or sign important papers in 24 hours after the procedure. Following Day: - Return to full activity which may include returning to work/school. Diet Start your diet with liquids and light foods (jello, soup, juice, toast). Then eat your usual diet if not nauseated. Treatment For Common After Affects For mild abdominal pain, bloating, or excessive gas: - Rest - Eat lightly - Lie on right side Follow-Up Information Follow-up with Peg as scheduled Anesthesia Information What You Should Know You have had a procedure that required some medicine to reduce anxiety and discomfort. This treatment is called moderate sedation. After receiving the treatment, you may be sleepy, but you will be able to breathe on your own. The effects of the treatment may last for several hours. Follow these instructions along with Activity/Diet recommendations noted above: * Do NOT do anything where dizziness or clumsiness would be dangerous. * Rest quietly at home today, then you can be up and about tomorrow. * Have a responsible person stay with you the rest of today. * You may have had an I.V. today. If so, you may take the dressing off later today. Recommendations Call your doctor if: * Trouble breathing * Continuous vomiting for more than 24 hours * Temperature above 101 degrees * Severe abdominal pain or bloating * Pain not relieved by pain medicine ordered * There is increased drainage or redness from any incision * A large amount of rectal bleeding greater than 2-3 tablespoons. (If you had a polyp/s removed or have hemorrhoids, a small amount of blood - from the rectum is to be expected.) * You have any unanswered questions or concerns. IN THE EVENT OF A SERIOUS EMERGENCY, GO TO THE NEAREST EMERGENCY ROOM Your discharge instructions were prepared by provider Kashmir Ríos. Patient Instructions Signature Page Amanda Krishnamurthy Patient (or Guardian) Signature/Date: I have read and understand the instructions given to me by my caregivers. Caregiver/RN/Doctor Signature/Date: The above-named patient and/or guardian has received patient instructions on this date. + Original Patient Signature Page (only) stays with chart. Please make copy for patient.
[2017-05-25 14:02] VITALS: BP 110/85; PULSE 68; O2SAT 100
== END | disposition home or self-care (01) ==
LOC: C.GI 12:09
PROVIDERS: ATTEND Internal Medicine
DX: D12.3 Benign neoplasm of transverse colon (principal); K64.8 Other hemorrhoids; R19.4 Change in bowel habit; R10.84 Generalized abdominal pain; F17.210 Nicotine dependence, cigarettes, uncomplicated; Z79.82 Long term (current) use of aspirin; Z79.899 Other long term (current) drug therapy

== ENCOUNTER → 2017-06-15 | Outpatient (CLI) | payer BC ==
[~2017-06-15] MED LIST changes: -LIDOCAINE HCL 2% 2 ML VIAL (20MG/ML) ONE; -PROPOFOL IV EMULSION 10 MG/ML 20 ML VIAL IV ONE; -SODIUM CHLORIDE 0.9% 500ML 500 ML IV ONE
--- NOTE | 2017-06-15 12:31 | DIAGNOSTIC IMAGING REPORT ---
RIGHT HAND MIN 3 VIEWS ROUTINE CLINICAL HISTORY: Right hand pain COMPARISON: None. DISCUSSION: The bony mineralization appears normal. No fractures or dislocations are visualized. There are minor osteoarthritic changes. There is no erosive disease. IMPRESSION: Minor osteoarthritic change. No acute fractures. No erosive disease. Electronically signed by: Hubert Fernandez M.D. 06/15/2017 12:30 PM Dictated Date/Time: 06/15/2017 12:29 PM
--- NOTE | 2017-06-15 12:39 | DIAGNOSTIC IMAGING REPORT ---
LEFT HAND MIN 3 VIEWS ROUTINE CLINICAL HISTORY: 46 years-old Male presenting with PAIN IN JOINT. TECHNIQUE: Frontal, oblique, and lateral views of the left hand were obtained. COMPARISON: None. FINDINGS: No acute fracture, malalignment, or radiopaque foreign body. No significant degenerative change. Radiocarpal and intercarpal articulations intact. No joint erosion or isac evidence of joint swelling. IMPRESSION: 1. No significant osseous abnormality of the left hand. Electronically signed by: Jorge Carney M.D. 06/15/2017 12:38 PM Dictated Date/Time: 06/15/2017 12:36 PM
== END | disposition home or self-care (01) ==
LOC: C.RAD 11:58
PROVIDERS: ATTEND Physician Assistant
DX: M25.542 Pain in joints of left hand (principal); M25.541 Pain in joints of right hand

== ENCOUNTER → 2017-07-14 | Outpatient (CLI) | payer BC ==
[2017-07-14 12:49] LABS: PATIENT HEIGHT 185.4 cm
[2017-07-14 13:37] LABS: MEAN CELL VOLUME 87.9 fL (80-100); MEAN CORPUSCULAR HEMOGLOBIN 32.4 pg (25-34); MEAN CORPUSCULAR HGB CONC 36.9 g/dl (32-36); MEAN PLATELET VOLUME 11.2 fL (7.4-10.4); PLATELET COUNT 179 K/uL (130-400); RED BLOOD COUNT 5.12 M/uL (4.7-6.1); WHITE BLOOD COUNT 8.92 K/uL (4.8-10.8)
[2017-07-14 13:42] LABS: URINE APPEARANCE CLEAR (CLEAR); URINE BILIRUBIN NEG (NEG); URINE COLOR YELLOW; URINE NITRITE NEG (NEG); URINE PH 5.5 (4.5-7.5); URINE SPECIFIC GRAVITY 1.017 (1.000-1.030); UROBILINOGEN NEG (NEG)
[2017-07-14 13:52] LABS: MANUAL MICROSCOPIC REQUIRED? NO; REVIEW REQ? NO
[2017-07-14 14:09] LABS: BUN/CREATININE RATIO 13.6 (10-20); CALCIUM 9.3 mg/dl (8.5-10.1); CREATININE 1.3 mg/dl (0.60-1.40); PHOSPHORUS 2.9 mg/dl (2.5-4.9); POTASSIUM 3.6 mmol/L (3.5-5.1); URINE PROTIEN/CREAT RATIO 0.1 (0-0.2); URINE TOTAL PROTEIN 11.1 mg/dl (0-11.9)
[2017-07-14 14:10] LABS: URINE TOTAL PROTEIN 18.8 mg/dl (0-11.9)
[2017-07-14 14:18] LABS: CREATININE 1.3 mg/dl (0.6-1.4); URINE TOTAL PROTEIN CALC 197.4 mg/24 hr (0-149.1)
[2017-07-18 14:43] LABS: ALBUMIN 4.8 G/DL (3.8-4.8); ALBUMIN % 33.33 %; ALPHA-2-GLOBULIN % 20.99 %; BETA GLOBULIN % 22.24 %; CREATININE UR 138 MG/DL (20-370); FREE KAPPA 19.7 MG/L (3.3-19.4); FREE KAPPA/LAMBDA RATIO 1.25 (0.26-1.65); FREE LAMBDA 15.8 MG/L (5.7-26.3); GAMMA GLOBULIN % 16.62 %; TOTAL PROTEIN 7.4 G/DL (6.2-8.3)
== END | disposition home or self-care (01) ==
LOC: C.LAB1850 12:40
PROVIDERS: ATTEND Internal Medicine Nephrology
DX: R80.9 Proteinuria, unspecified (principal)

== ENCOUNTER → 2017-11-06 | Outpatient (CLI) | payer BC ==
--- NOTE | 2017-11-06 14:13 | DIAGNOSTIC IMAGING REPORT ---
RIGHT LOWER QUADRANT ULTRASOUND HISTORY: Right lower quadrant abdominal pain. COMPARISON: CT of the abdomen and pelvis November 29, 2012. FINDINGS: The appendix was not visualized by sonography. No mass, fluid collection or other sonographic abnormality was identified within the right lower quadrant. IMPRESSION: Nonvisualization of the appendix. This study is nondiagnostic in regards to evaluation for acute appendicitis. Electronically signed by: Radu Gould M.D. 11/06/2017 2:11 PM Dictated Date/Time: 11/06/2017 2:10 PM
== END | disposition home or self-care (01) ==
LOC: C.ULTRBC 12:52
PROVIDERS: ATTEND Physician Assistant
DX: R10.31 Right lower quadrant pain (principal)

== ENCOUNTER 2023-02-01 08:51 | Inpatient (IN) ==
[2023-02-01] MEDS ORDERED: SODIUM CHLORIDE 0.9% 1000ML 1,000 ML IV SCH (09:30)
[2023-02-01] MEDS ORDERED: OPTIRAY 320 500ml IV ONE ×2 (09:39→12:17)
[2023-02-01 09:40] LABS: iSTAT Creatinine 1.4 mg/dl (0.6-1.3); iSTAT Hemoglobin 16.7 g/dl (14.0-18.0); iSTAT Ionized Calcium 1.26 mmol/l (1.12-1.32); iSTAT Potassium 4.3 mmol/L (3.3-5.0)
--- NOTE | 2023-02-01 09:42 | Emergency Department Note ---
Impression & Plan Stroke-like symptoms, Hypertension, Left-sided chest pain, Facial numbness, Elevated troponin ED Provider Note INFORMANT: Patient and ED PROVIDER(S): Amaury Calloway MD CHIEF COMPLAINT: Strokelike symptoms and hypertension PLAN: Disposition: Admitted Condition: Good Outpatient prescription management: none Referral: None MEDICAL DECISION MAKING: Patient presented with multiple complaints as noted below and initially did not allude to the speech and weakness issues for triage. He initially was triaged into a regular ED room but on further history with help from his significant other there was concerns for strokelike symptoms and then he was made a stroke alert. Thankfully the majority of his symptoms have resolved. I-STAT was unremarkable. Patient was sent for CT imaging. CT imaging was negative. I did consult with [facility] telestroke, Dr. Bruno. In light of his symptoms being essentially resolved and a near negative NIH scale TNK was felt to be not indicated. She recommended TIA/strokelike work-up. Patient's CBC and chemistry panels were unremarkable however his troponin was elevated. ECG was normal. In light of the chest pain further evaluation and management will be necessary. Discussed with patient and . They were in agreement. Patient was treated with morphine, aspirin, and Nitropaste. Consultation was made with [facility] hospitalist service. Patient was evaluated in the ER and admitted for further management Discussed with demand generator manager. After review of the information above and other included data, I feel the patient requires admission. Triage Nursing notes reviewed and agree them. Vital Signs: reviewed and remarkable for hypertension Prior /Outside records reviewed: Most recent primary care wellness visit. Hypertension hyperlipidemia issues addressed. Differential diagnosis: Infection, dehydration, metabolic abnormality, hypo/hyperglycemia, electrolyte disturbance, anemia, hypoxia, ACS, TIA, CVA toxicologic, neurologic, as well as other pathologies. Diagnostics, as interpreted by me: ECG: Twelve-lead ECG reveals a normal sinus rhythm with sinus arrhythmia at [address] elevation or depression. No PACs or PVCs. Cardiac Monitoring: Cardiac monitoring ordered by me: The patient was placed on continuous cardiac monitoring and observed. It revealed a normal sinus rhythm at 60 beats per minute without ectopy or evidence of dysrhythmia. Medical decision rules: none Imaging studies: CT of the head and CT angiography of the head and neck were negative for acute CVA or vessel occlusion. Chest x-ray. Findings: A chest x-ray was performed and revealed no pneumothorax, effusion, infiltrate, pulmonary edema, free air under the diaphragm, or wide mediastinum. Impression: No acute disease. HPI: The patient is a 52year old male who presents to the Emergency Room with complaints of strokelike symptoms and high blood pressure. This started this morning around 745 and is noted to have spiked to 189/90. The patient also notes the following associated symptoms, left facial numbness, neck pain radiating towards the right ear, difficulty standing, and dysarthria. Patient's significant other present and helps with the history. She noted that he called around 7:45 AM when he was not feeling well and he was having difficulty speaking. He texted a picture of his blood pressure reading. When she got home she noted that the speech was improved however his legs are generally weak. He had seen his primary last week and was noting some left-sided chest and shoulder pain which he has had in the past. He stated that lasted for about 2 days and then resolved. He noted that the chest did flare back up again today. The patient has taken no medication for relieving factors. Current pain is rated as 6/10. Pt denies LOC, headache, fevers, chills, diaphoresis, visual changes,breathing difficulties, nausea, vomiting, abdominal pain, back pain, melena, hematochezia, urinary symptoms,lymphadenopathy, rash, or other complaints. PAST MEDICAL HISTORY: See Below, hypertension, hypothyroidism PAST SURGICAL HISTORY: See Below, SOCIAL HISTORY: See Below, smoker HOME MEDICATIONS: See Below ALLERGIES: See Below VITALS: See Below PHYSICAL EXAMINATION: GENERAL: Awake, alert, uncomfortable-appearing, in no distress HENT: Normocephalic, atraumatic. Oropharynx unremarkable. EYES: Normal conjunctiva. Sclera non-icteric. PERRLA. EOMI. NECK: Inspection normal. Non-tender. Supple. No nuchal rigidity. FROM. No m asses. RESPIRATORY: Clear to auscultation. No wheezes. No rales. Normal respiratory effort. CARDIAC: Normal rate. Normal rhythm. No murmurs. No rubs. Extremities warm and well perfused. Pulses equal. No JVD. GI: Soft, non-distended. No tenderness to palpation. No rebound or guarding. No masses. RECTAL: Deferred. MUSCULOSKELETAL: Atraumatic. Chest examination reveals no tenderness. The back is symmetrical on inspection without obvious abnormality. There is no CVA tenderness to palpation. No joint edema. LOWER EXTREMITIES: Calves are equal size bilaterally and non-tender. No edema. No discoloration. NEURO: Normal sensorium. Speech normal. Subjective tingling in the left side of the face. No other sensory or motor deficits noted. Cranial nerves II through XII intact otherwise. Normal rapid alternating movements. No drift. SKIN: No rash or jaundice noted. Past Med/Surg History Medical History (Updated 02/01/23 @ 11:29 by Nikolas Ness MD) Chronic constipation GERD (gastroesophageal reflux disease) Goiter Raj's thyroiditis Hyperlipidemia Hypertension Hypothyroidism Osteoarthritis Tobacco dependence Surgical History History of cholecystectomy 2020 History of colonoscopy (~2017) W/ POLYPECTOMY History of esophagogastroduodenoscopy (EGD) History of tooth extraction Status post excision of lipoma CHEST - A CHILD Family History Grandmother (Maternal) Family history of diabetes mellitus Uncle Family history of diabetes mellitus Denies family history of Ovarian cancer Prostate cancer Myocardial infarction Breast cancer Colorectal cancer Social History Smoking Status: Current every day smoker Tobacco Type: Cigarettes packs per day: 1; Cigarettes Per Day: 10-15; Second Hand Exposure: Yes; Hx Alcohol Use: Yes Alcohol Intake Frequency: Monthly or Less Hx Substance Use: No Preferred Language: Gabonese Communication Ability: Effective Visual Impairment: No Limitations Hearing Ability: Normal Pl Sql Developer Required: No Beliefs That Will Affect Care: None marital status: Current Living Situation: Significant Other current occupational status: employed current occupation: [employer] Feels Safe at Home: Yes Diet Comment: Regular caffeine: Yes during the past year weight has: remained stable Dental Care, Regularly: No Physical Activity Frequency: Daily Seatbelt Use: always Sunscreen Use: No Assistive Devices: Denture - Lower Allergies Allergies Allergy/AdvReac Type Severity Reaction Status Date / Time Penicillins Allergy Unknown HAPPENED Unverified 01/18/23 09:58 CHILD - PT DOESN'T REMEMBER fluoxetine Allergy Verified 01/18/23 09:58 sertraline Allergy Verified 01/18/23 09:58 atorvastatin AdvReac Intermediate Muscle Pain Verified 01/18/23 09:58 Home Meds Home Medications Medication Instructions Recorded Confirmed levothyroxine 100 mcg capsule 100 mcg PO DAILY 02/01/23 02/01/23 (Tirosint) Previous Rx's Medication Instructions Recorded pantoprazole 40 mg tablet,delayed 40 mg PO QAM #90 tabs 11/29/22 release rosuvastatin 10 mg tablet 10 mg PO DAILY #90 tabs 12/23/22 Results & Data (ED) Vital Signs Vital Signs - 24 hr 02/01/23 08:54 02/01/23 09:42 02/01/23 09:45 Temperature 36.8 C Temperature Source Temporal Artery Scan Pulse Rate 83 89 80 Pulse Rate from SpO2 Sensor 83 Respiratory Rate 18 15 15 Blood Pressure 168/91 H Blood Pressure Mean 116 Pulse Oximetry 98 99 Oxygen Delivery Method Room Air Sepsis Recent Fever Within 48 Hours No Sepsis New/Unexplained Change in Mental Status No Sepsis Action Taken by Nursing No Action Required 02/01/23 09:45 02/01/23 10:31 02/01/23 10:00 Temperature Temperature Source Pulse Rate 67 74 Pulse Rate from SpO2 Sensor 73 Respiratory Rate 16 Blood Pressure 155/91 H Blood Pressure Mean 112 Pulse Oximetry 98 Oxygen Delivery Method Sepsis Recent Fever Within 48 Hours Sepsis New/Unexplained Change in Mental Status Sepsis Action Taken by Nursing 02/01/23 10:18 02/01/23 10:18 02/01/23 10:30 Temperature Temperature Source Pulse Rate 65 Pulse Rate from SpO2 Sensor 63 Respiratory Rate 16 Blood Pressure 170/96 H 130/90 Blood Pressure Mean 120 103 Pulse Oximetry 98 Oxygen Delivery Method Sepsis Recent Fever Within 48 Hours Sepsis New/Unexplained Change in Mental Status Sepsis Action Taken by Nursing 02/01/23 10:30 02/01/23 10:45 02/01/23 10:45 Temperature Temperature Source Pulse Rate 67 69 Pulse Rate from SpO2 Sensor 67 69 Respiratory Rate 24 13 Blood Pressure 127/92 Blood Pressure Mean 103 Pulse Oximetry 97 96 Oxygen Delivery Method Sepsis Recent Fever Within 48 Hours Sepsis New/Unexplained Change in Mental Status Sepsis Action Taken by Nursing 02/01/23 11:00 02/01/23 11:00 02/01/23 11:15 Temperature Temperature Source Pulse Rate 74 85 Pulse Rate from SpO2 Sensor 73 79 Respiratory Rate 14 18 Blood Pressure 133/90 Blood Pressure Mean 104 Pulse Oximetry 97 98 Oxygen Delivery Method Sepsis Recent Fever Within 48 Hours Sepsis New/Unexplained Change in Mental Status Sepsis Action Taken by Nursing 02/01/23 11:15 02/01/23 11:30 02/01/23 11:30 Temperature Temperature Source Pulse Rate 65 Pulse Rate from SpO2 Sensor 64 Respiratory Rate 18 Blood Pressure 121/102 H 136/88 Blood Pressure Mean 108 104 Pulse Oximetry 96 Oxygen Delivery Method Room Air Sepsis Recent Fever Within 48 Hours Sepsis New/Unexplained Change in Mental Status Sepsis Action Taken by Nursing 02/01/23 11:45 02/01/23 11:45 02/01/23 11:48 Temperature Temperature Source Pulse Rate 60 Pulse Rate from SpO2 Sensor 61 Respiratory Rate 14 Blood Pressure 144/94 H 146/99 H Blood Pressure Mean 110 114 Pulse Oximetry 98 Oxygen Delivery Method Room Air Sepsis Recent Fever Within 48 Hours Sepsis New/Unexplained Change in Mental Status Sepsis Action Taken by Nursing 02/01/23 11:48 02/01/23 12:20 02/01/23 12:20 Temperature Temperature Source Pulse Rate 65 66 Pulse Rate from SpO2 Sensor 66 66 Respiratory Rate 17 15 Blood Pressure 110/95 Blood Pressure Mean 100 Pulse Oximetry 97 98 Oxygen Delivery Method Room Air Sepsis Recent Fever Within 48 Hours Sepsis New/Unexplained Change in Mental Status Sepsis Action Taken by Nursing 02/01/23 12:30 02/01/23 12:30 Temperature Temperature Source Pulse Rate 60 Pulse Rate from SpO2 Sensor 63 Respiratory Rate 17 Blood Pressure 115/83 Blood Pressure Mean 93 Pulse Oximetry 98 Oxygen Delivery Method Room Air Sepsis Recent Fever Within 48 Hours Sepsis New/Unexplained Change in Mental Status Sepsis Action Taken by Nursing Laboratory Data 02/01/23 09:25 02/01/23 09:25 Lab Results 02/01/23 02/01/23 02/01/23 Range/Units 09:24 09:24 09:25 WBC 7.30 (4.8-10.8) K/ul RBC 5.39 (4.70-6.10) M/uL Hgb 16.7 (14.0-18.0) g/dl POC Hgb (14.0-18.0) g/dl Hct 47.2 (42.0-52.0) % POC Hct (42-52) % MCV 87.6 (80.0-100.0) fL MCH 31.0 (25.0-34.0) pg MCHC 35.4 (32.0-36.0) g/dL RDW Std Deviation 40.9 (36.4-46.3) fL RDW Coeff of Desmond 12.8 (11.5-14.5) % Plt Count 188 (130-400) K/uL MPV 10.9 (9.4-12.4) fL Immature Gran % (Auto) 0.4 % Neut % (Auto) 69.1 % Lymph % (Auto) 22.7 % Weld % (Auto) 4.9 % Eos % (Auto) 1.9 % Baso % (Auto) 1.0 % Neut # (Auto) 5.04 (1.40-6.50) K/uL Lymph # (Auto) 1.66 (1.2-3.4) K/uL Weld # (Auto) 0.36 (0.11-0.59) K/uL Eos # (Auto) 0.14 (0-0.50) K/uL Baso # (Auto) 0.07 (0-0.2) K/uL Immature Gran # (Auto) 0.03 (0.01-0.20) K/uL PT (9.0-12.0) Seconds INR (0.9-1.1) APTT (21.0-31.0) Seconds PTT Ratio POC Sodium (135-144) mmol/L Sodium (136-145) mmol/L POC Potassium (3.3-5.0) mmol/L Potassium (3.5-5.1) mmol/L POC Chloride (101-112) mmol/L Chloride (98-107) mmol/L Carbon Dioxide (21-32) mmol/L POC Total CO2 (24-31) mmol/L Anion Gap (3-11) POC Anion Gap (16-25) mmol/L POC BUN (7-18) mg/dl BUN (6-23) mg/dl Creatinine (0.6-1.4) mg/dl POC Creatinine (0.6-1.3) mg/dl Est Cr Clr Drug Dosing ml/min Est GFR ( Amer) ml/min Est GFR (Non-Af Amer) ml/min BUN/Creatinine Ratio (10-20) Glucose (70-99(Fasting)) mg/dl POC Glucose 133 H (70-99) mg/dl POC Glucose (other) (70-99) mg/dl Calcium (8.5-10.1) mg/dl POC Ioniz Calcium Erica (1.12-1.32) mmol/l Magnesium (1.7-2.4) mg/dl Total Bilirubin (0.2-1.0) mg/dl AST (13-39) U/L ALT (7-52) U/L Alkaline Phosphatase (34-104) U/L Troponin I High Sens (0-20) pg/ml Total Protein (6.0-8.3) gm/dl Albumin (3.4-5.0) gm/dl Globulin (2.5-4.0) gm/dl Albumin/Globulin Ratio (0.9-2) TSH (0.300-4.500) uIu/ml Free T4 (0.61-1.60) ng/dl Urine Color Urine Appearance (Clear) Urine pH (4.5-7.5) Ur Specific [place] (1.000-1.030) Urine Protein (Negative) Urine Glucose (UA) (Negative) Urine Ketones (Negative) Urine Blood (Negative) Urine Nitrite (Negative) Urine Bilirubin (Negative) Urine Urobilinogen (Negative) Ur Leukocyte Esterase (Negative) SARS-CoV-2, RNA, NAAT (NEGATIVE) Blood Type O Positive Antibody Screen NEGATIVE 02/01/23 02/01/23 02/01/23 Range/Units 09:25 09:25 09:26 WBC (4.8-10.8) K/ul RBC (4.70-6.10) M/uL Hgb (14.0-18.0) g/dl POC Hgb (14.0-18.0) g/dl Hct (42.0-52.0) % POC Hct (42-52) % MCV (80.0-100.0) fL MCH (25.0-34.0) pg MCHC (32.0-36.0) g/dL RDW Std Deviation (36.4-46.3) fL RDW Coeff of Desmond (11.5-14.5) % Plt Count (130-400) K/uL MPV (9.4-12.4) fL Immature Gran % (Auto) % Neut % (Auto) % Lymph % (Auto) % Weld % (Auto) % Eos % (Auto) % Baso % (Auto) % Neut # (Auto) (1.40-6.50) K/uL Lymph # (Auto) (1.2-3.4) K/uL Weld # (Auto) (0.11-0.59) K/uL Eos # (Auto) (0-0.50) K/uL Baso # (Auto) (0-0.2) K/uL Immature Gran # (Auto) (0.01-0.20) K/uL PT 10.6 (9.0-12.0) Seconds INR 1.0 (0.9-1.1) APTT 29.5 (21.0-31.0) Seconds PTT Ratio 1.1 POC Sodium (135-144) mmol/L Sodium 139 (136-145) mmol/L POC Potassium (3.3-5.0) mmol/L Potassium 4.3 (3.5-5.1) mmol/L POC Chloride (101-112) mmol/L Chloride 107 (98-107) mmol/L Carbon Dioxide 29 (21-32) mmol/L POC Total CO2 (24-31) mmol/L Anion Gap 3 (3-11) POC Anion Gap (16-25) mmol/L POC BUN (7-18) mg/dl BUN 14 (6-23) mg/dl Creatinine 1.35 (0.6-1.4) mg/dl POC Creatinine (0.6-1.3) mg/dl Est Cr Clr Drug Dosing 73.2 ml/min Est GFR ( Amer) 70.0 ml/min Est GFR (Non-Af Amer) 60.4 ml/min BUN/Creatinine Ratio 10.4 (10-20) Glucose 119 H (70-99(Fasting)) mg/dl POC Glucose (70-99) mg/dl POC Glucose (other) (70-99) mg/dl Calcium 10.2 H (8.5-10.1) mg/dl POC Ioniz Calcium Erica (1.12-1.32) mmol/l Magnesium 2.1 (1.7-2.4) mg/dl Total Bilirubin 0.5 (0.2-1.0) mg/dl AST 20 (13-39) U/L ALT 25 (7-52) U/L Alkaline Phosphatase 78 (34-104) U/L Troponin I High Sens 261.7 H* (0-20) pg/ml Total Protein 7.5 (6.0-8.3) gm/dl Albumin 4.8 (3.4-5.0) gm/dl Globulin 2.7 (2.5-4.0) gm/dl Albumin/Globulin Ratio 1.8 (0.9-2) TSH 1.391 (0.300-4.500) uIu/ml Free T4 0.74 (0.61-1.60) ng/dl Urine Color Urine Appearance (Clear) Urine pH (4.5-7.5) Ur Specific [place] (1.000-1.030) Urine Protein (Negative) Urine Glucose (UA) (Negative) Urine Ketones (Negative) Urine Blood (Negative) Urine Nitrite (Negative) Urine Bilirubin (Negative) Urine Urobilinogen (Negative) Ur Leukocyte Esterase (Negative) SARS-CoV-2, RNA, NAAT (NEGATIVE) Blood Type Antibody Screen 02/01/23 02/01/23 02/01/23 Range/Units 09:28 09:52 10:17 WBC (4.8-10.8) K/ul RBC (4.70-6.10) M/uL Hgb (14.0-18.0) g/dl POC Hgb 16.7 (14.0-18.0) g/dl Hct (42.0-52.0) % POC Hct 49 (42-52) % MCV (80.0-100.0) fL MCH (25.0-34.0) pg MCHC (32.0-36.0) g/dL RDW Std Deviation (36.4-46.3) fL RDW Coeff of Desmond (11.5-14.5) % Plt Count (130-400) K/uL MPV (9.4-12.4) fL Immature Gran % (Auto) % Neut % (Auto) % Lymph % (Auto) % Weld % (Auto) % Eos % (Auto) % Baso % (Auto) % Neut # (Auto) (1.40-6.50) K/uL Lymph # (Auto) (1.2-3.4) K/uL Weld # (Auto) (0.11-0.59) K/uL Eos # (Auto) (0-0.50) K/uL Baso # (Auto) (0-0.2) K/uL Immature Gran # (Auto) (0.01-0.20) K/uL PT (9.0-12.0) Seconds INR (0.9-1.1) APTT (21.0-31.0) Seconds PTT Ratio POC Sodium 141 (135-144) mmol/L Sodium (136-145) mmol/L POC Potassium 4.3 (3.3-5.0) mmol/L Potassium (3.5-5.1) mmol/L POC Chloride 103 (101-112) mmol/L Chloride (98-107) mmol/L Carbon Dioxide (21-32) mmol/L POC Total CO2 24 (24-31) mmol/L Anion Gap (3-11) POC Anion Gap 19.0 (16-25) mmol/L POC BUN 13 (7-18) mg/dl BUN (6-23) mg/dl Creatinine (0.6-1.4) mg/dl POC Creatinine 1.4 H (0.6-1.3) mg/dl Est Cr Clr Drug Dosing ml/min Est GFR ( Amer) ml/min Est GFR (Non-Af Amer) ml/min BUN/Creatinine Ratio (10-20) Glucose (70-99(Fasting)) mg/dl POC Glucose (70-99) mg/dl POC Glucose (other) 118 H (70-99) mg/dl Calcium (8.5-10.1) mg/dl POC Ioniz Calcium Erica 1.26 (1.12-1.32) mmol/l Magnesium (1.7-2.4) mg/dl Total Bilirubin (0.2-1.0) mg/dl AST (13-39) U/L ALT (7-52) U/L Alkaline Phosphatase (34-104) U/L Troponin I High Sens (0-20) pg/ml Total Protein (6.0-8.3) gm/dl Albumin (3.4-5.0) gm/dl Globulin (2.5-4.0) gm/dl Albumin/Globulin Ratio (0.9-2) TSH (0.300-4.500) uIu/ml Free T4 (0.61-1.60) ng/dl Urine Color Yellow Urine Appearance Clear (Clear) Urine pH 7.5 (4.5-7.5) Ur Specific [place] 1.026 (1.000-1.030) Urine Protein Negative (Negative) Urine Glucose (UA) Negative (Negative) Urine Ketones Negative (Negative) Urine Blood Negative (Negative) Urine Nitrite Negative (Negative) Urine Bilirubin Negative (Negative) Urine Urobilinogen Negative (Negative) Ur Leukocyte Esterase Negative (Negative) SARS-CoV-2, RNA, NAAT NEGATIVE (NEGATIVE) Blood Type Antibody Screen Administered Medications Sodium Chloride (Nss 1000ml) 1,000 mls @ 50 mls/hr IV .Q20H GARRY Stop: 03/03/23 09:29 Last Admin: 02/01/23 10:40 Dose: 50 mls/hr Documented By: LESA Discontinued Medications Al Hydrox/Mg Hydrox/Simethicone (Gi Cocktail Ed Use) 1 dose PO ONE ONE Stop: 02/01/23 11:22 Last Admin: 02/01/23 12:30 Dose: 1 dose Documented By: LESA Aspirin (Aspirin Chew 324 Mg) 162 mg PO NOW STA Stop: 02/01/23 10:14 Last Admin: 02/01/23 10:36 Dose: 162 mg Documented By: LESA Famotidine 20 mg/ Syringe 5 mls @ 2.5 mls/min IV NOW ONE Stop: 02/01/23 11:22 Last Admin: 02/01/23 12:32 Dose: 2.5 mls/min Documented By: LESA Ioversol (Optiray 320 500ml) 120 ml IV ONCE ONE Stop: 02/01/23 09:40 Last Admin: 02/01/23 09:39 Dose: 120 ml Documented By: ENDY Ioversol (Optiray 320 500ml) 117 ml IV ONCE ONE Stop: 02/01/23 12:18 Last Admin: 02/01/23 12:18 Dose: 117 ml Documented By: SHANA Morphine Sulfate (Morphine Sulfate 2 Mg/Ml Carp) 2 mg IV NOW STA Stop: 02/01/23 10:14 Last Admin: 02/01/23 10:36 Dose: 2 mg Documented By: LESA Nitroglycerin (Nitroglycerin 2% Ointment 30gm Tube) 0.5 inch EXT NOW STA Stop: 02/01/23 10:14 Last Admin: 02/01/23 10:42 Dose: 0.5 inch Documented By: LKD Imaging Data Radiologist's Impression: Chest X-Ray 02/01/23 09:22 XR chest 1V portable CLINICAL HISTORY: neuro deficit, acute stroke suspected TECHNIQUE: Single frontal radiograph of the chest was obtained. Comparison: Comparison is made to chest radiograph 05/21/2019 FINDINGS: No lines and tubes are seen. The cardiomediastinal silhouette is normal. The l ungs are clear. No evidence of pleural effusion or pneumothorax. IMPRESSION: No acute chest disease. ACT 112: Negative or not required by law. Electronically signed by: Timmy Campos M.D. 02/01/2023 10:[address] 02/01/23 09:22 CT angio head w con, CT head/brain wo con CLINICAL HISTORY: neuro deficit, acute stroke suspected TECHNIQUE: Contiguous axial CT images of the head were acquired from the base of the skull to the vertex without intravenous contrast administration. CT angiography of the head was performed following intravenous administration of iodinated contrast. Coronal and sagittal MIPS were obtained from the axial data set and were submitted for review. Automated dose lowering techniques and/or adjustment according to patient size were utilized for this examination. All measurements were calculated based on NASCET criteria. Comparison: Comparison is made to MRI brain 05/12/2017 FINDINGS: CT head: There is no acute intracranial hemorrhage or evidence of acute territorial infarction. No shift of the midline structures, mass effect, or extra-axial abnormalities are shown. CTA Head: The anterior and posterior cerebral circulations are patent. origin of the bilateral posterior cerebral arteries noted. The left vertebral artery terminates in PICA. IMPRESSION: 1. No acute intracranial hemorrhage, evidence of acute territorial infarction, or other acute intracranial disease process. 2. 3. No occlusion, hemodynamically significant stenosis, aneurysm, dissection, or arteriovenous malformation in the major intracranial arteries. Assessment of stenosis of the internal carotid arteries is based on NASCET criteria. ACT 112: Negative or not required by law. Electronically signed by: Timmy Campos M.D. 02/01/2023 9:57 AM Head CTA 02/01/23 09:22 CT angio head w con, CT head/brain wo con CLINICAL HISTORY: neuro deficit, acute stroke suspected TECHNIQUE: Contiguous axial CT images of the head were acquired from the base of the skull to the vertex without intravenous contrast administration. CT angiography of the head was performed following intravenous administration of iodinated contrast. Coronal and sagittal MIPS were obtained from the axial data set and were submitted for review. Automated dose lowering techniques and/or adjustment according to patient size were utilized for this examination. All measurements were calculated based on NASCET criteria. Comparison: Comparison is made to MRI brain 05/12/2017 FINDINGS: CT head: There is no acute intracranial hemorrhage or evidence of acute territorial infarction. No shift of the midline structures, mass effect, or extra-axial abnormalities are shown. CTA Head: The anterior and posterior cerebral circulations are patent. origin of the bilateral posterior cerebral arteries noted. The left vertebral artery terminates in PICA. IMPRESSION: 1. No acute intracranial hemorrhage, evidence of acute territorial infarction, or other acute intracranial disease process. 2. 3. No occlusion, hemodynamically significant stenosis, aneurysm, dissection, or arteriovenous malformation in the major intracranial arteries. Assessment of stenosis of the internal carotid arteries is based on NASCET criteria. ACT 112: Negative or not required by law. Electronically signed by: Timmy Campos M.D. 02/01/2023 9:57 AM Neck CTA 02/01/23 09:22 CT ANGIOGRAM OF THE NECK CLINICAL HISTORY: Neurological deficit. Stroke like symptoms. COMPARISON STUDY: No priors. TECHNIQUE: Following the IV administration of 120 of Optiray 320, CT angiogram o f the neck was performed from the aortic arch to the skull base. Images are reviewed in the axial, sagittal, and coronal planes. 3-D MIPS images are created and assessed. IV contrast was administered without complication. All measurements were calculated based on NASCET criteria. A dose lowering te chnique was utilized adhering to the principles of ALARA. CT DOSE: 1318.82 mGy.cm FINDINGS: Thoracic aorta: Visualized portions of the thoracic aorta are normal in caliber. The aortic arch demonstrates 4-vessel variant anatomy. One of the duplicated left vertebral arteries arise directly from the thoracic aorta. Right carotid arterial system: The right common carotid artery is widely patent, as are the right internal and external carotid arteries. Mild calcified plaque is noted in the carotid bulb. Left carotid arterial system: Left common carotid artery is widely patent, as are the left internal and external carotid arteries. Mild calcified plaque is seen in the carotid bulb. Vertebral arteries: There is a duplicated proximal left vertebral artery, with branches arising from the thoracic aorta and the left subclavian artery. These converge at the level of C5. The vertebral arteries are widely patent bilaterally noting right-sided dominance. Subclavian arteries: Widely patent bilaterally. Jugular veins: Widely patent bilaterally. Brain parenchyma: The visualized brain parenchyma the skull base is within normal limits. Lung apices: Partially visualized upper lobe lung parenchyma appears clear. Soft tissues: The visualized pharyngeal soft tissues are normal in appearance noting angiographic phase technique. The oropharyngeal airway appears widely patent. The salivary and thyroid glands are normal in appearance. No cervical lymphadenopathy is seen. Skeletal structures: The visualized calvarium at the skull base appears intact. The imaged cervical spine is within normal limits. Sinuses and mastoids: There is a 1.6 cm retention cyst in the right maxillary antrum. There is trace left mastoid effusion. The right mastoid air cells are well pneumatized. IMPRESSION: Unremarkable CT angiogram of the neck. ACT 112: Negative or not required by law. Electronically signed by: Ras Cisneros M.D. 02/01/2023 9:52 AM Abdomen/Pelvis CTA 02/01/23 11:45 CT angio abdomen pelvis w con CLINICAL HISTORY: 52 years-old Male with acute abdominal pain, possible HTN emergency acute mid abdominal pain with hypertension COMPARISON STUDY: CTA chest of same day, CTA abdomen and pelvis 10/31/2019. TECHNIQUE: Following the IV administration of 117 cc of Optiray, CT angiogram of the abdomen and pelvis was performed from the lung bases the proximal femora. Images are reviewed in the axial, sagittal, and coronal planes. 3-D MIPS images are created and assessed. All measurements were obtained according to NASCET criteria. IV contrast was administered without complication. A dose lowering technique was utilized adhering to the principles of ALARA. CT DOSE: 580.99 mGy.cm FINDINGS: CTA: Heart is normal in size. No pericardial effusion. No pulmonary emboli id entified. Mild atherosclerosis of the descending thoracic aorta with a 5 mm ulcerative plaque of the upper abdominal aorta, image 175 series 8. Moderate atherosclerosis of the abdominal aorta without aneurysm or dissection. There is 60% stenosis involving the proximal aspect of the left common iliac artery. There is less than 50% stenosis of the right common iliac artery which has improved. The external iliac and imaged femoral arteries appear patent. The celiac trunk and superior mesenteric arteries are widely patent. The renal arteries are also patent. Moderate stenosis at the origin of the inferior mesenteric artery is unchanged. No retroperitoneal hematoma. CT ABDOMEN/PELVIS: The lung bases are generally clear. Unremarkable spleen, pancreas and adrenal glands. Cholecystectomy. Unremarkable liver. No biliary ductal dilation. Kidneys are within normal limits. No hydronephrosis. Contrast opacified renal collecting systems and ureters demonstrate no urothelial lesion. Urinary bladder wall thickening with partial distention. Mild prostamegaly with small fat filled inguinal hernias. No lymphadenopathy identified. No bowel obstruction or bowel wall thickening. Mild to moderate colonic fecal retention. Normal appendix. Unremarkable soft tissues. No acute fracture. IMPRESSION: 1. Atherosclerosis without aneurysm, dissection, high-grade stenosis or arterial occlusion. 2. 60% stenosis within the left common iliac artery appears unchanged from the prior study. 3. No acute intra-abdominal or intrapelvic abnormality. 4. Additional findings as above. ACT 112: Negative or not required by law. The above report was generated using voice recognition software. It may contain grammatical, syntax or spelling errors. Electronically signed by: Domenico Swenson M.D. 02/01/2023 12:35 PM Chest CTA 02/01/23 11:45 CT ANGIOGRAM OF THE CHEST CLINICAL HISTORY: Atypical chest pain. Hypertension. COMPARISON STUDY: Chest CT dated 10/31/2019. Chest x-ray dated 02/01/2023. TECHNIQUE: Following the IV administration of 117 cc of Optiray 320, CT angiogram of the chest was performed from the thoracic inlet to the upper abdomen utilizing the dissection protocol. Images are reviewed in the axial, sagittal, and coronal planes. 3-D MIPS images are created and assessed. IV contrast was administered without complication. A dose lowering technique was utilized adhering to the principles of ALARA. FINDINGS: Thyroid: Imaged portions of the thyroid gland are normal in size and attenuation. Thoracic aorta: The thoracic aorta is normal in caliber and demonstrates 4- vessel variant arch anatomy. A branch of the duplicated left vertebral artery arises directly from the thoracic aorta. No dissection is seen. The arch vessels are widely patent. Pulmonary vasculature: The pulmonary trunk is normal in caliber. There are no filling defects identified in the main, lobar, or segmental pulmonary arteries to indicate pulmonary emboli. Heart: The heart is normal in size and without pericardial effusion. Lungs and pleural spaces: There is mild emphysematous change. No airspace consolidation or pleural effusion is identified. The trachea and central airways are clear. Mediastinum: There is no mediastinal lymphadenopathy. Cathi: Clear. Axillae: There is no axillary lymphadenopathy. Upper abdomen: Partially visualized upper abdominal viscera is within normal limits. Skeletal structures: No lytic or blastic bony lesions are seen. IMPRESSION: 1. Unremarkable CT angiogram of the thoracic aorta. 2. There is no evidence of pulmonary embolus in the main, lobar, or segmental pulmonary arteries. 3. Mild emphysema. 4. There is no airspace consolidation or pleural effusion. 5. Additional findings as above. ACT 112: Negative or not required by law. Electronically signed by: Ras Cisneros M.D. 02/01/2023 12:39 PM Discharge Plan Visit Data Chief Complaint: Hypertension Stated Complaint: HIGH BP, RIGHT FACIAL NUMBNESS, CHEST PAINS ED Provider: Amaury Calloway Discharge Problem: Stroke-like symptoms, Hypertension, Left-sided chest pain, Facial numbness Prescriptions Prescriptions: No Action pantoprazole 40 mg tablet,delayed release (DR/EC) 40 mg PO QAM Qty: 90 1RF rosuvastatin 10 mg tablet 10 mg PO DAILY Qty: 90 1RF levothyroxine [Tirosint] 100 mcg Capsule 100 mcg PO DAILY
[2023-02-01 09:46] LABS: Basophils # (auto) 0.07 K/uL (0-0.2); Eosinophils # (auto) 0.14 K/uL (0-0.50); Eosinophils % (auto) 1.9 %; Hematocrit (blood only) 47.2 % (42.0-52.0); Hemoglobin 16.7 g/dl (14.0-18.0); Immature Granulocytes # (auto) 0.03 K/uL (0.01-0.20); Immature Granulocytes % (auto) 0.4 %; Lymphocytes # (auto) 1.66 K/uL (1.2-3.4); Lymphocytes % (auto) 22.7 %; Mean Corpuscular Hgb Conc 35.4 g/dL (32.0-36.0); Mean Corpuscular Volume 87.6 fL (80.0-100.0); Mean Platelet Volume 10.9 fL (9.4-12.4); Monocytes # (auto) 0.36 K/uL (0.11-0.59); Monocytes % (auto) 4.9 %; Neutrophils # (auto) 5.04 K/uL (1.40-6.50); Neutrophils % (auto) 69.1 %; Platelet Count 188 K/uL (130-400); RDW Coefficient of Variation 12.8 % (11.5-14.5); RDW Standard Deviation 40.9 fL (36.4-46.3); Red Blood Count 5.39 M/uL (4.70-6.10)
[2023-02-01 09:48] LABS: Partial Thromboplastin Ratio 1.1; Partial Thromboplastin Time 29.5 Seconds (21.0-31.0); Prothrombin Time 10.6 Seconds (9.0-12.0)
--- NOTE | 2023-02-01 09:54 | CT Scan Report ---
CT ANGIOGRAM OF THE NECK CLINICAL HISTORY: Neurological deficit. Stroke like symptoms. COMPARISON STUDY: No priors. TECHNIQUE: Following the IV administration of 120 of Optiray 320, CT angiogram of the neck was perfor med from the aortic arch to the skull base. Images are reviewed in the axial, sagittal, and coronal p lanes. 3-D MIPS images are created and assessed. IV contrast was administered without complication. A ll measurements were calculated based on NASCET criteria. A dose lowering technique was utilized adh ering to the principles of ALARA. CT DOSE: 1318.82 mGy.cm FINDINGS: Thoracic aorta: Visualized portions of the thoracic aorta are normal in caliber. The aortic arch demo nstrates 4-vessel variant anatomy. One of the duplicated left vertebral arteries arise directly from the thoracic aorta. Right carotid arterial system: The right common carotid artery is widely patent, as are the right int ernal and external carotid arteries. Mild calcified plaque is noted in the carotid bulb. Left carotid arterial system: Left common carotid artery is widely patent, as are the left internal a nd external carotid arteries. Mild calcified plaque is seen in the carotid bulb. Vertebral arteries: There is a duplicated proximal left vertebral artery, with branches arising from the thoracic aorta and the left subclavian artery. These converge at the level of C5. The vertebral a rteries are widely patent bilaterally noting right-sided dominance. Subclavian arteries: Widely patent bilaterally. Jugular veins: Widely patent bilaterally. Brain parenchyma: The visualized brain parenchyma the skull base is within normal limits. Lung apices: Partially visualized upper lobe lung parenchyma appears clear. Soft tissues: The visualized pharyngeal soft tissues are normal in appearance noting angiographic pha se technique. The oropharyngeal airway appears widely patent. The salivary and thyroid glands are nor mal in appearance. No cervical lymphadenopathy is seen. Skeletal structures: The visualized calvarium at the skull base appears intact. The imaged cervical s pine is within normal limits. Sinuses and mastoids: There is a 1.6 cm retention cyst in the right maxillary antrum. There is trace left mastoid effusion. The right mastoid air cells are well pneumatized. IMPRESSION: Unremarkable CT angiogram of the neck. ACT 112: Negative or not required by law. Electronically signed by: Ras Cisneros M.D. 02/01/2023 9:52 AM
[2023-02-01 09:56] LABS: Albumin Globulin Ratio 1.8 (0.9-2); Albumin Level 4.8 gm/dl (3.4-5.0); BUN Creatinine Ratio 10.4 (10-20); Bilirubin,Total 0.5 mg/dl (0.2-1.0); Calcium 10.2 mg/dl (8.5-10.1); Creatinine Clr Calc Pharmacy 73.2 ml/min; Est GFR (Non-African American) 60.4 ml/min; Globulin 2.7 gm/dl (2.5-4.0); Magnesium 2.1 mg/dl (1.7-2.4); Potassium 4.3 mmol/L (3.5-5.1); Total Protein 7.5 gm/dl (6.0-8.3)
--- NOTE | 2023-02-01 10:00 | CT Scan Report ---
CT angio head w con, CT head/brain wo con CLINICAL HISTORY: neuro deficit, acute stroke suspected TECHNIQUE: Contiguous axial CT images of the head were acquired from the base of the skull to the evelio maria r without intravenous contrast administration. CT angiography of the head was performed following intravenous administration of iodinated contrast. Coronal and sagittal MIPS were obtained from the ax ial data set and were submitted for review. Automated dose lowering techniques and/or adjustment acc ording to patient size were utilized for this examination. All measurements were calculated based on NASCET criteria. Comparison: Comparison is made to MRI brain 05/12/2017 FINDINGS: CT head: There is no acute intracranial hemorrhage or evidence of acute territorial infarction. No sh ift of the midline structures, mass effect, or extra-axial abnormalities are shown. CTA Head: The anterior and posterior cerebral circulations are patent. origin of the bilateral posterior cerebral arteries noted. The left vertebral artery terminates in PICA. IMPRESSION: 1. No acute intracranial hemorrhage, evidence of acute territorial infarction, or other acute intrac ranial disease process. 2. 3. No occlusion, hemodynamically significant stenosis, aneurysm, dissection, or arteriovenous malfor mation in the major intracranial arteries. Assessment of stenosis of the internal carotid arteries is based on NASCET criteria. ACT 112: Negative or not required by law. Electronically signed by: Timmy Campos M.D. 02/01/2023 9:57 AM
[2023-02-01 10:07] LABS: Troponin I High Sensitivity 261.7 pg/ml (0-20)
[2023-02-01] MEDS ORDERED: NITROGLYCERIN 2% OINTMENT 30GM TUBE EXT STA (10:13)
[2023-02-01] MEDS ORDERED: ASPIRIN CHEW 324 MG PO STA (10:13)
[2023-02-01] MEDS ORDERED: MoRPHine SULFATE 2 MG/ML CARP IV STA (10:13)
--- NOTE | 2023-02-01 10:21 | XRay Report ---
XR chest 1V portable CLINICAL HISTORY: neuro deficit, acute stroke suspected TECHNIQUE: Single frontal radiograph of the chest was obtained. Comparison: Comparison is made to chest radiograph 05/21/2019 FINDINGS: No lines and tubes are seen. The cardiomediastinal silhouette is normal. The lungs are clear. No evid ence of pleural effusion or pneumothorax. IMPRESSION: No acute chest disease. ACT 112: Negative or not required by law. Electronically signed by: Timmy Campos M.D. 02/01/2023 10:20 AM
--- NOTE | 2023-02-01 10:41 | History & Physical Report ---
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 Chest Pain, Left Arm Pain, Facial Flushing - Reports intermittent episodes of burning-like CP associated with facial flushing and a different-type of L arm pain for nearly 10 years, not assoc. 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 w/ strokelike symptoms (in the setting of recent TSH depression and levothyroxine dose lowering) - Work-up as follows: - hs-Trp: 262 on arrival, repeat pending - TSH, fT4 repeats pending (last at 0.034 on 01/18) - CTA-H/N no acute insults, though does demonstrate R maxillary mucous retention cyst - (2019) CTA - RLL nodule, 3mm at the time - RFs: Smoker, male >50, HLD, HTN; HEART score 6 - Pending: A1c, lipid panel, fractionated metanephrine (serum) - Exact etiology unclear and may be multifactorial. His notable HTN, elevated troponin, and strokelike symptoms may be c/w HTN emergency; odd though this resolved without any intervention. ACS as primary etiology is considered given his risk factors. CP may also have contribution or underpinnings with dyspepsia, especially given relief in the past. Lower suspicion for PE. His recurrent flushing and fluctuating HTN also separately raise suspicion for neuroendocrine process, such as a pheo. - Nitro paste, ASA x 2 given in the ED -- will continue - Check CTA-Chest, A/P + TTE - Trend troponin, monitor on telemetry - Consult cardiology: appreciate insight, recommendations on need for stress test vs. cath - Initiate rosuvastatin 10mg daily - Consider beta verena initiation pending MRI, CT, TTE - Give Pepcid and GI cocktail now, increase daily PPI dose Will consider heparin pending repeat troponin (2) Elevated troponin: Plan: - As outlined above. HEART score 6. 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 for ASCVD - Difficult to rule-out HTN contribution to this especially given concurrent chest pain and bumped troponin - CTA-H/N without acute vascular or hemorrhagic processes - Check MRI brain - Rosuvastatin will be initiated - Smoking cessation will be critical (4) Raj's thyroiditis: Plan: Hypothyroidism - Recent TSH 0.034 and fT4 1.31, dose recently lowered to levothyroxine 100mcg daily - Await recheck of TSH, fT4 - Continue levothyroxine (5) GERD (gastroesophageal reflux disease): Plan: GERD - Known history of GERD, esophagitis, esophageal dysmotility per review of record - May have underpinnings in his chest pain, burning quality extending up his throat - Continue PPI - Will give famotidine and GI cocktail x 1 - NPO for now, resume HH diet once situation becomes more clear (6) Hypertension: Plan: HTN -- ??Possibly HTN Emergency - He has now had two highly HTN range readings within the last week. He likely has underlying HTN - This AM, reportedly at ~185/100 (and similar early in the week) - though downtrended on its own without treatment - Presently normotensive -- will hold from any antiHTN initiation until situation becomes more clear - Can consider initiation of BB or ARB - Metanephrines sent given hx. Consider YUNIER, RONA w/u (7) Abdominal pain: Plan: Abdominal Pain - Patient reports longstanding history of waxing-waning RUQ abdominal pain since his CCY several years ago - Does have hernia on exam - reducible when pressed, not really the site of pain; +murphys sign - Unclear etiology. Given significant worsening and recent HTN episode, will proceed with CT-A/P with contrast - GI cocktail, as above; will consider analgesics pending response, scan (8) NSTEMI (non-ST elevated myocardial infarction): Plan Code: Full PPX: Will consider pharmacologic pending work-up above Dispo: MST Diet: NPO History of Present Illness Primary Care Provider: JERRICA Howard This is a 52-year-old male with a history of hypertension, GERD, Raj's thyroiditis on thyroid replacement therapy, hyperlipidemia, tobacco use who presented to [facility] for evaluation of chest pain and strokelike symptoms. Overall, patient says that he was relatively in his normal health up through this morning. He said that he got up, began feeling "like everything was wrong"he says that he had a burning like pain that extended from the top of his throat down to the center of his chest. It got worse with opening his mouth. It did not get worse with exertion. He then said that he began feeling hot and flushed and began developing pain in his left shoulder/arm; he went in the hot tub to see if this would relieve his symptoms and unfortunately did not. He took his blood pressure and it was around 185/100. He called his , who immediately came home; she said that he was dysarthric, had difficulty moving his arms and his legs. He vomited. He was also complaining of numbness and tingling over the left side of his face into his upper back. He was able to articulate that he did not want an ambulance. He does not remember having labs drawn in the ED. Per his , blood pressure has been abnormally high this weekprior to his PCP visit last week, he also had a blood pressure in the 180-190 range. It was normal in between then and today. He is not on any antiHTNs. He also reports having 1-2 "spells" per week of face feeling hot, getting pain in his L arm. No obvious precipitants, including food or activity. He endorses smoking 1 pack of cigarettes per day and 2 to 3 pouches of snuff. He denies any recreational substances. He consumes about half a beer every other day. Relevant PMHx: The patient's endocrine notes were reviewed. He reportedly has a difficult to control hypothyroidism history; he began having lightheadedness around 2014. He has previously been on Synthroid, generic levothyroxine, and [place] Thyroid. He was placed back on levothyroxine in 2017. He apparently has had numerous "spells "since 2013 in which he gets abdominal cramping, bowel movements, lightheadedness, diaphoresis, chest pain, mouth tingling; it is noted that he was taking care of by GI over this time and was treated for reflux, which supposedly resolved some of his symptoms. He had an endoscopy done in 2017 which demonstrated esophagitis, gastritis, and esophageal dysmotility. And 17, he did have episode of "confusion but no loss of consciousness or postictal findings. "He reported tachycardia, diaphoresis, flushing of the face, swelling of face and eyes. Supposedly resolved with Tirosint, which he is back on now. Of note, he did undergo evaluation by neurology that included an EEG back in 2017; at that time he reported episode of dizziness, vague headache, confusion associated with increased anxiety. ED Course: Upon arrival in the ED, patient was found to be hypertensive to 168/91 with normal heart rate, respirations, oxygen saturation. Weight on admission 89 kilograms. Admission labs revealing normal CBC, INR 1.0, BUN 14/creatinine 1.35 (last creatinine from 01/18 at 1.17), calcium 10.2, high- sensitivity troponin 262. Last TSH at 0.034 on 01/18. nCT+A of head/neck demonstrated a right maxillary sinus mucous retention cyst, otherwise no acute findings or stenotic lesions. ECG demonstrated no acute changes compared to prior. A stroke alert was called; there was concern for TIA. He received ASA 324 x 2, nitro paste. Repeat troponin, TSH, fT4 pending. -- This documentation was created utilizing dictation software. As such, syntax, grammatical, and word-choice errors may be present. Notes are screened prior to submission in an attempt to reduce these errors. If there are any questions or concerns, please contact the author directly for clarification. Allergies Allergy/AdvReac Type Severity Reaction Status Date / Time Penicillins Allergy Unknown HAPPENED Unverified 01/18/23 09:58 CHILD - PT DOESN'T REMEMBER fluoxetine Allergy Verified 01/18/23 09:58 sertraline Allergy Verified 01/18/23 09:58 atorvastatin AdvReac Intermediate Muscle Pain Verified 01/18/23 09:58 Home Medications Medication Instructions Recorded Confirmed Type pantoprazole 40 mg tablet,delayed 40 mg PO QAM #90 tabs 11/29/22 02/01/23 Rx release rosuvastatin 10 mg tablet 10 mg PO DAILY #90 tabs 12/23/22 02/01/23 Rx levothyroxine 100 mcg capsule 100 mcg PO DAILY 02/01/23 02/01/23 History (Tirosint) Past Med/Surg History Medical History Chronic constipation GERD (gastroesophageal reflux disease) Goiter Raj's thyroiditis Hyperlipidemia Hypertension Hypothyroidism Osteoarthritis Tobacco dependence Surgical History History of cholecystectomy 2020 History of colonoscopy (~2017) W/ POLYPECTOMY History of esophagogastroduodenoscopy (EGD) History of tooth extraction Status post excision of lipoma CHEST - A CHILD Family History Grandmother (Maternal) Family history of diabetes mellitus Uncle Family history of diabetes mellitus Denies family history of Ovarian cancer Prostate cancer Myocardial infarction Breast cancer Colorectal cancer Social History Smoking Status: Current every day smoker Tobacco Type: Cigarettes packs per day: 1; Cigarettes Per Day: 1 pack/day; Second Hand Exposure: Yes; Do You Dip or Chew Tobacco: Yes (a few chews/day); Tobacco Cessation Education Requested by Patient: Yes Hx Alcohol Use: Yes Alcohol type: hard liquor Alcohol Intake Frequency: Monthly or Less Hx Substance Use: No Preferred Language: Portuguese Communication Ability: Effective Visual Impairment: No Limitations Hearing Ability: Normal Charge Auditor Required: No Beliefs That Will Affect Care: None marital status: Current Living Situation: Spouse Current Living Situation Comment: current occupational status: employed current occupation: [employer] Other Information That Helps Us Care for You: No Feels Safe at Home: Yes Safety Concerns: Feels Safe At This Time Diet Comment: Regular caffeine: Yes during the past year weight has: remained stable Dental Care, Regularly: No Physical Activity Frequency: Daily Seatbelt Use: always Sunscreen Use: No Assistive Devices: Denture - Upper and Denture - Lower Assistive Devices Comment: dentures at home to bring home Review of Systems Review of Systems: as per HPI Physical Exam Physical Exam: General: Tired appearing 52-year old male who is alert, oriented, and is in NAD. HEENT: NCAT. - Eyes - Sclera are white, anicteric, and without injection. - Mouth - MMM - Neck - supple, no appreciable JVD Cardiac: Normal rate and regular rhythm; S1 and S2 present with no murmur detected Pulmonary: Good respiratory effort with symmetric expansion of the chest. No use of accessory muscles. Lungs were CTAB Abdominal: Normoactive bowel sounds without bruits. Abdomen was soft, nondistended. +TTP in the RUQ. Extremities: Upper and lower extremities are warm and well perfused. No peripheral edema in the lower extremities bilaterally Results & Data Results & Data ([facility]) Vital Signs (Past 12 Hours) Vital Signs Temp Pulse Resp BP Pulse Ox O2 Del Method 02/01/23 10:31 67 02/01/23 09:45 155/91 H 02/01/23 09:45 80 15 99 02/01/23 09:42 89 15 02/01/23 08:54 36.8 C 83 18 168/91 H 98 Room Air Supervising Physician Co-Signing Physician Notes I personally saw and examined the patient. I verified all galeas points and agree with resident physician Dr Nikolas Ness MD with the following exceptions and/or additions: 52 year old male presents to the ER with constellation of symptoms including right ear fullness, left facial numbness, back pain, bilateral body weakness, left arm pain, chest pain, reflux, abdominal pain, nausea. Reports significant reflux symptoms overnight. O/E A&Ox3, HS 1+2, RRR, no murmurs, Chest CTAB, Abdo generalized tenderness without guarding or rebound tenderness, no unilateral extremity weakness or sensory loss, CN 2-> 12, peripheral pulses normal and equal b/l A/P NSTEMI - ASA, metoprolol, rosuvastatin, IV heparin low dose with bolus. TTE. Consult cardiology. Stroke-like symptoms - Will complete stroke workup with brain MRI but very atypical symptoms suspect acute problem is just NSTEMI CT angiogram chest and abdomen reassuringly normal. Also noted prior normal CT angiogram performed in Oct 2019 for abdominal pain at this time in addition Resident Activity Tracking Resident Involvement: Resident Care Provided Care Provided: Adult Hospital Medicine
[2023-02-01] MEDS ORDERED: GI COCKTAIL ED USE PO ONE (11:21)
[2023-02-01] MEDS ORDERED: FAMOTIDINE 20 MG in SYRINGE 3 ML IV ONE (11:21)
[2023-02-01 11:31] LABS: Appearance Urine Clear (Clear); Bilirubin Urine Negative (Negative); Blood Urine Negative (Negative); Color Urine Yellow; Glucose Urine UA Negative (Negative); Ketones Urine Negative (Negative); Leukocyte Esterase Urine Negative (Negative); Nitrite Urine Negative (Negative); Protein Urine Negative (Negative); Specific Gravity Urine 1.026 (1.000-1.030); Urobilinogen Urine Negative (Negative); pH Urine 7.5 (4.5-7.5)
[2023-02-01 11:37] LABS: Thyroid Stimulating Hormone 1.391 uIu/ml (0.300-4.500)
[2023-02-01 11:39] LABS: T4 Free Thyroxine 0.74 ng/dl (0.61-1.60)
--- NOTE | 2023-02-01 12:37 | CT Scan Report ---
CT angio abdomen pelvis w con CLINICAL HISTORY: 52 years-old Male with acute abdominal pain, possible HTN emergency acute mid ab dominal pain with hypertension COMPARISON STUDY: CTA chest of same day, CTA abdomen and pelvis 10/31/2019. TECHNIQUE: Following the IV administration of 117 cc of Optiray, CT angiogram of the abdomen and pelv is was performed from the lung bases the proximal femora. Images are reviewed in the axial, sagittal, and coronal planes. 3-D MIPS images are created and assessed. All measurements were obtained accordi ng to NASCET criteria. IV contrast was administered without complication. A dose lowering technique was utilized adhering to the principles of ALARA. CT DOSE: 580.99 mGy.cm FINDINGS: CTA: Heart is normal in size. No pericardial effusion. No pulmonary emboli identified. Mild atherosclerosi s of the descending thoracic aorta with a 5 mm ulcerative plaque of the upper abdominal aorta, image 175 series 8. Moderate atherosclerosis of the abdominal aorta without aneurysm or dissection. There i s 60% stenosis involving the proximal aspect of the left common iliac artery. There is less than 50% stenosis of the right common iliac artery which has improved. The external iliac and imaged femoral a rteries appear patent. The celiac trunk and superior mesenteric arteries are widely patent. The renal arteries are also patent. Moderate stenosis at the origin of the inferior mesenteric artery is uncha nged. No retroperitoneal hematoma. CT ABDOMEN/PELVIS: The lung bases are generally clear. Unremarkable spleen, pancreas and adrenal glands. Cholecystectomy . Unremarkable liver. No biliary ductal dilation. Kidneys are within normal limits. No hydronephrosis . Contrast opacified renal collecting systems and ureters demonstrate no urothelial lesion. Urinary b ladder wall thickening with partial distention. Mild prostamegaly with small fat filled inguinal eli ias. No lymphadenopathy identified. No bowel obstruction or bowel wall thickening. Mild to moderate colonic fecal retention. Normal appen david. Unremarkable soft tissues. No acute fracture. IMPRESSION: 1. Atherosclerosis without aneurysm, dissection, high-grade stenosis or arterial occlusion. 2. 60% stenosis within the left common iliac artery appears unchanged from the prior study. 3. No acute intra-abdominal or intrapelvic abnormality. 4. Additional findings as above. ACT 112: Negative or not required by law. The above report was generated using voice recognition software. It may contain grammatical, syntax o r spelling errors. Electronically signed by: Domenico Swenson M.D. 02/01/2023 12:35 PM
--- NOTE | 2023-02-01 12:41 | CT Scan Report ---
CT ANGIOGRAM OF THE CHEST CLINICAL HISTORY: Atypical chest pain. Hypertension. COMPARISON STUDY: Chest CT dated 10/31/2019. Chest x-ray dated 02/01/2023. TECHNIQUE: Following the IV administration of 117 cc of Optiray 320, CT angiogram of the chest was pe rformed from the thoracic inlet to the upper abdomen utilizing the dissection protocol. Images are re viewed in the axial, sagittal, and coronal planes. 3-D MIPS images are created and assessed. IV contr ast was administered without complication. A dose lowering technique was utilized adhering to the pr inciples of [place]. FINDINGS: Thyroid: Imaged portions of the thyroid gland are normal in size and attenuation. Thoracic aorta: The thoracic aorta is normal in caliber and demonstrates 4-vessel variant arch anatom y. A branch of the duplicated left vertebral artery arises directly from the thoracic aorta. No disse ction is seen. The arch vessels are widely patent. Pulmonary vasculature: The pulmonary trunk is normal in caliber. There are no filling defects identif ied in the main, lobar, or segmental pulmonary arteries to indicate pulmonary emboli. Heart: The heart is normal in size and without pericardial effusion. Lungs and pleural spaces: There is mild emphysematous change. No airspace consolidation or pleural ef fusion is identified. The trachea and central airways are clear. Mediastinum: There is no mediastinal lymphadenopathy. Cathi: Clear. Axillae: There is no axillary lymphadenopathy. Upper abdomen: Partially visualized upper abdominal viscera is within normal limits. Skeletal structures: No lytic or blastic bony lesions are seen. IMPRESSION: 1. Unremarkable CT angiogram of the thoracic aorta. 2. There is no evidence of pulmonary embolus in the main, lobar, or segmental pulmonary arteries. 3. Mild emphysema. 4. There is no airspace consolidation or pleural effusion. 5. Additional findings as above. ACT 112: Negative or not required by law. Electronically signed by: Ras Cisneros M.D. 02/01/2023 12:39 PM
[2023-02-01] MEDS ORDERED: PHARMACIST DISCHARGE MED REC CONSULT PRN (13:28)
[2023-02-01] MEDS ORDERED: NITROGLYCERIN SL 0.4 MG/TAB TAB SL PRN (13:28)
[2023-02-01 13:41] LABS: Troponin I High Sensitivity 3704.7 pg/ml (0-20)
[2023-02-01] MEDS ORDERED: Heparin IV Adult Wt-Based Low-Dose WITH Bolus Protocol IV SCH (13:46)
[2023-02-01] MEDS ORDERED: HEPARIN SOD (PORCINE) 1000 UNIT/ML IV ONE (13:57)
[2023-02-01] MEDS ORDERED: HEPARIN SODIUM/DEXTROSE 25,000 UNITS/500 ML BAG IV SCH (14:00)
--- NOTE | 2023-02-01 15:42 | Cardiology Consultation ---
Date of Consultation February 01, 2023 Assessment & Plan (1) Left-sided chest pain: (2) Elevated troponin: (3) Hypertension: (4) Hyperlipidemia: Plan 1. Chest, arm and back discomfort: This is very atypical of coronary artery disease however it has resolved, it is different than things he has experienced before and he does have positive troponin measurements. I suspect this is an unusual anginal equivalent. 2. Elevated troponin: His troponin has increased quite significantly which is consistent with myocardial ischemia. This is not an ST segment elevation myocardial infarction, therefore it is not imperative to take him emergently to the laboratory. 3. Hypertension: Although he carries a diagnosis of hypertension his outpatient regimen does not seem to contain an antihypertensive. His blood pressure has been elevated from time to time. I agree with the use of beta-blockade, I would increase this if his blood pressure rises. 4. Hyperlipidemia: He was on outpatient Crestor 10 mg, that has been increased to 10 mg daily. I would agree with this unless his catheterization shows normal coronary arteries. I believe he should have a cardiac catheterization to evaluate his coronary anatomy. I will make him n.p.o., I think that can be done as a scheduled proc edure tomorrow and less his symptoms change. I would continue his current antianginal medications and heparin. History of Present Illness Reason for Consultation: NSTEMI Attending Physician: Joe Walls MD History of Present Illness This is a 52-year-old male with hypertension, hyperlipidemia, hypothyroidism and a history of intermittent chest discomfort. He also has a history of GERD and abdominal discomfort. He presented today with symptoms of left-sided facial numbness, left upper back numbness and left arm numbness. The symptoms lasted 2 or 3 hours and have now resolved. He denies actual pain in these areas and denies exertional chest discomfort, exertional shortness of breath or change in his exercise ability recently. He feels that the symptoms are different than his prior atypical chest and abdominal discomfort. At the time my evaluation he is feeling well, he was started on intravenous heparin as well as other medications. He does have an occasional fluttering sensation in his chest which she does not recall having before, other than that he has no complaints. Allergies Allergy/AdvReac Type Severity Reaction Status Date / Time Penicillins Allergy Unknown HAPPENED Unverified 01/18/23 09:58 CHILD - PT DOESN'T REMEMBER fluoxetine Allergy Verified 01/18/23 09:58 sertraline Allergy Verified 01/18/23 09:58 atorvastatin AdvReac Intermediate Muscle Pain Verified 01/18/23 09:58 Home Medications Medication Instructions Recorded Confirmed Type pantoprazole 40 mg tablet,delayed 40 mg PO QAM #90 tabs 11/29/22 02/01/23 Rx release rosuvastatin 10 mg tablet 10 mg PO DAILY #90 tabs 12/23/22 02/01/23 Rx levothyroxine 100 mcg capsule 100 mcg PO DAILY 02/01/23 02/01/23 History (Tirosint) Patient History Medical History Chronic constipation GERD (gastroesophageal reflux disease) Goiter Raj's thyroiditis Hyperlipidemia Hypertension Hypothyroidism Osteoarthritis Tobacco dependence Surgical History History of cholecystectomy 2020 History of colonoscopy (~2016) W/ POLYPECTOMY History of esophagogastroduodenoscopy (EGD) History of tooth extraction Status post excision of lipoma CHEST - A CHILD Family History Grandmother (Maternal) Family history of diabetes mellitus Uncle Family history of diabetes mellitus Denies family history of Ovarian cancer Prostate cancer Myocardial infarction Breast cancer Colorectal cancer Social History Smoking Status: Current every day smoker Tobacco Type: Cigarettes packs per day: 1; Cigarettes Per Day: 1 pack/day; Second Hand Exposure: Yes; Do You Dip or Chew Tobacco: Yes (a few chews/day); Tobacco Cessation Education Requested by Patient: Yes Hx Alcohol Use: Yes Alcohol type: hard liquor Alcohol Intake Frequency: Monthly or Less Hx Substance Use: No Preferred Language: Irish Communication Ability: Effective Visual Impairment: No Limitations Hearing Ability: Normal Loan Expeditor Required: No Beliefs That Will Affect Care: None marital status: Current Living Situation: Spouse Current Living Situation Comment: current occupational status: employed current occupation: [employer] Other Information That Helps Us Care for You: No Feels Safe at Home: Yes Safety Concerns: Feels Safe At This Time Diet Comment: Regular caffeine: Yes during the past year weight has: remained stable Dental Care, Regularly: No Physical Activity Frequency: Daily Seatbelt Use: always Sunscreen Use: No Assistive Devices: Denture - Upper and Denture - Lower Assistive Devices Comment: dentures at home to bring home Review of Systems Review of Systems: All systems reviewed & are unremarkable except as noted in HPI & below Physical Exam Physical Exam: Constitutional: Alert, cooperative and in no distress. HEENT: Unremarkable Neck: No jugular venous distention, carotid pulses are normal and equal bilaterally without bruits. Pulmonary: Clear to auscultation bilaterally. Cardiac: Regular rhythm with no murmur, gallop or rub. Abdomen: Soft, nontender with normal bowel sounds. Extremities: No edema. Distal pulses intact. Neurologic: No focal findings. Gait was not tested. Skin: No rash, ecchymoses or petechiae. Results & Data ([facility]) Vital Signs (Past 12 Hours) Vital Signs Temp Pulse Pulse Resp BP BP Pulse Ox 02/01/23 15:00 62 02/01/23 14:55 02/01/23 14:55 36.4 C L 62 18 134/91 97 02/01/23 14:47 36.4 C L 62 18 134/91 97 02/01/23 14:27 132/82 02/01/23 13:45 133/91 02/01/23 13:45 61 13 97 02/01/23 13:30 75 21 97 02/01/23 13:15 64 17 97 02/01/23 13:15 152/96 H 02/01/23 13:00 76 23 99 02/01/23 13:00 142/100 H 02/01/23 12:45 65 15 98 02/01/23 12:45 128/87 02/01/23 12:30 60 17 98 02/01/23 12:30 115/83 02/01/23 12:20 110/95 02/01/23 12:20 66 15 98 02/01/23 11:48 65 17 97 02/01/23 11:48 146/99 H 02/01/23 11:45 144/94 H 02/01/23 11:45 60 14 98 02/01/23 11:30 65 18 96 02/01/23 11:30 136/88 02/01/23 11:15 121/102 H 02/01/23 11:15 85 18 98 02/01/23 11:00 74 14 97 02/01/23 11:00 133/90 02/01/23 10:45 127/92 02/01/23 10:45 69 13 96 02/01/23 10:30 67 24 97 02/01/23 10:30 130/90 02/01/23 10:18 65 16 98 02/01/23 10:18 170/96 H 02/01/23 10:00 74 16 98 02/01/23 10:31 67 02/01/23 09:45 155/91 H 02/01/23 09:45 80 15 99 02/01/23 09:42 89 15 02/01/23 08:54 36.8 C 83 18 168/91 H 98 O2 Del Method 02/01/23 15:00 02/01/23 14:55 Room Air 02/01/23 14:55 Room Air 02/01/23 14:47 Room Air 02/01/23 14:27 02/01/23 13:45 02/01/23 13:45 Room Air 02/01/23 13:30 02/01/23 13:15 02/01/23 13:15 02/01/23 13:00 02/01/23 13:00 02/01/23 12:45 02/01/23 12:45 02/01/23 12:30 Room Air 02/01/23 12:30 02/01/23 12:20 02/01/23 12:20 Room Air 02/01/23 11:48 02/01/23 11:48 02/01/23 11:45 02/01/23 11:45 Room Air 02/01/23 11:30 Room Air 02/01/23 11:30 02/01/23 11:15 02/01/23 11:15 02/01/23 11:00 02/01/23 11:00 02/01/23 10:45 02/01/23 10:45 02/01/23 10:30 02/01/23 10:30 02/01/23 10:18 02/01/23 10:18 02/01/23 10:00 02/01/23 10:31 02/01/23 09:45 02/01/23 09:45 02/01/23 09:42 02/01/23 08:54 Room Air Laboratory Results Cardiac Enzymes 02/01/23 02/01/23 Range/Units 09:25 12:47 AST 20 (13-39) U/L Troponin I High Sens 261.7 H* 3704.7 H* D (0-20) pg/ml Coagulation 02/01/23 Range/Units 09:25 PT 10.6 (9.0-12.0) Seconds APTT 29.5 (21.0-31.0) Seconds CBC 02/01/23 Range/Units 09:25 WBC 7.30 (4.8-10.8) K/ul RBC 5.39 (4.70-6.10) M/uL Hgb 16.7 (14.0-18.0) g/dl Hct 47.2 (42.0-52.0) % Plt Count 188 (130-400) K/uL Neut # (Auto) 5.04 (1.40-6.50) K/uL Lymph # (Auto) 1.66 (1.2-3.4) K/uL [place] # (Auto) 0.36 (0.11-0.59) K/uL Eos # (Auto) 0.14 (0-0.50) K/uL Baso # (Auto) 0.07 (0-0.2) K/uL Comprehensive Metabolic Panel 02/01/23 Range/Units 09:25 Sodium 139 (136-145) mmol/L Potassium 4.3 (3.5-5.1) mmol/L Chloride 107 (98-107) mmol/L Carbon Dioxide 29 (21-32) mmol/L BUN 14 (6-23) mg/dl Creatinine 1.35 (0.6-1.4) mg/dl Glucose 119 H (70-99(Fasting)) mg/dl Calcium 10.2 H (8.5-10.1) mg/dl AST 20 (13-39) U/L ALT 25 (7-52) U/L Alkaline Phosphatase 78 (34-104) U/L Total Protein 7.5 (6.0-8.3) gm/dl Albumin 4.8 (3.4-5.0) gm/dl Intake and Output 02/01/23 02/01/23 02/01/23 06:59 14:59 22:59 Other: Weight 86.9 kg Weight Measurement Method Standing Scale Patient Weight 02/02/23 06:59 Weight 86.9 kg Diagnostic Findings Telemetry: Sinus rhythm, 1 brief run of NSVT PG Care Time/CCT Total # of Minutes Spent Total Time Spent with Patient: Total time spent is greater than 50% in coordination of care (as documented) at patient's floor/unit and/or counseling patient: Coding Level of Care Code 82788 IN/OBS CONSULT LVL 4,60M Diagnoses Left-sided chest pain R07.9 Elevated troponin R77.8 Hypertension I10 Hyperlipidemia E78.5
[2023-02-01] MEDS ORDERED: [UNRECOGNIZED DRUG - OTHER] SCH (16:00)
[2023-02-01 20:58] LABS: Partial Thromboplastin Ratio 1.7
[2023-02-01 21:10] LABS: Partial Thromboplastin Time 45.5 Seconds (21.0-31.0)
[2023-02-01] MEDS: METOPROLOL TARTRATE 25 MG TAB PO SCH (21:36)
--- NOTE | 2023-02-01 23:46 | Billing Data ---
Date of Service February 01, 2023 Coding Level of Care Code 12515 INT INP/OBS CARE
[2023-02-02 04:19] LABS: Partial Thromboplastin Ratio 1.7
[2023-02-02] MEDS: TIROSINT PO SCH (05:19)
--- NOTE | 2023-02-02 06:14 | Electrocardiogram Report ---
Test Reason : Blood Pressure : / mmHG Vent. Rate : 077 BPM Atrial Rate : 077 BPM P-R Int : 168 ms QRS Dur : 078 ms QT Int : 370 ms P-R-T Axes : 058 046 044 degrees QTc Int : 418 ms Normal sinus rhythm with sinus arrhythmia Normal ECG When compared with ECG of 31-OCT-2019 19:14, Non-specific change in ST segment in Anterior leads Confirmed by Nolberto Coe ([id number]) on 02/02/2023 6:13:41 AM Referred By: REFERRED SELF Confirmed By:Nolberto Coe
--- NOTE | 2023-02-02 07:15 | Magnetic Resonance Report ---
MRI OF THE BRAIN WITHOUT IV CONTRAST CLINICAL HISTORY: Transient aphasia. Paresthesias. COMPARISON STUDY: CT of the brain performed earlier the same day 02/01/2023. TECHNIQUE: MRI of the brain was performed utilizing various T1 and T2-weighted sequences in the axial , sagittal, and coronal planes. IV contrast was not administered for this examination. FINDINGS: Brain parenchyma: The brain parenchyma is normal in appearance. There is no hemorrhage or mass effect . There is no restricted diffusion to suggest acute ischemia. Becerra-white matter differentiation is pr eserved. No extra-axial fluid collection is seen. The cerebellar tonsils are normal in configuration. Ventricles, sulci, and cisterns: Normal in configuration. Pituitary and sella: Unremarkable. Intracranial vasculature: Normal flow voids are maintained at the skull base. Orbits: The bony orbits are grossly intact. Orbital contents are normal in appearance. Sinuses and mastoids: A 1.6 cm retention cyst is noted in the right maxillary antrum. The remaining p aranasal sinuses are clear. There is a small left mastoid effusion. Calvarium: Unremarkable. Cervical cord: Partially visualized cervical spinal cord is normal in morphology and signal intensity . IMPRESSION: No acute intracranial abnormality. ACT 112: Negative or not required by law. Electronically signed by: Ras Cisneros M.D. 02/02/2023 7:13 AM
[2023-02-02 07:54] LABS: Albumin Globulin Ratio 1.8 (0.9-2); Albumin Level 4.3 gm/dl (3.4-5.0); Bilirubin,Total 0.8 mg/dl (0.2-1.0); Calcium 9.1 mg/dl (8.5-10.1); Chol HDL Ratio 8.7 (0-5); Creatinine Clr Calc Pharmacy 84.4 ml/min; Est GFR (African American) 83.2 ml/min; Est GFR (Non-African American) 71.8 ml/min; Globulin 2.4 gm/dl (2.5-4.0); Potassium 4.1 mmol/L (3.5-5.1); Total Protein 6.7 gm/dl (6.0-8.3)
[2023-02-02 08:01] LABS: Basophils # (auto) 0.07 K/uL (0-0.2); Eosinophils # (auto) 0.18 K/uL (0-0.50); Eosinophils % (auto) 2.5 %; Hemoglobin 15.5 g/dl (14.0-18.0); Immature Granulocytes # (auto) 0.01 K/uL (0.01-0.20); Immature Granulocytes % (auto) 0.1 %; Lymphocytes # (auto) 2.23 K/uL (1.2-3.4); Lymphocytes % (auto) 31.5 %; Mean Corpuscular Hemoglobin 31.3 pg (25.0-34.0); Mean Corpuscular Volume 86.9 fL (80.0-100.0); Monocytes # (auto) 0.39 K/uL (0.11-0.59); Monocytes % (auto) 5.5 %; Neutrophils # (auto) 4.21 K/uL (1.40-6.50); Neutrophils % (auto) 59.4 %; Platelet Count 178 K/uL (130-400); RDW Standard Deviation 40.9 fL (36.4-46.3); Red Blood Count 4.95 M/uL (4.70-6.10); White Blood Count 7.09 K/ul (4.8-10.8)
[2023-02-02] MEDS: METOPROLOL TARTRATE 25 MG TAB PO SCH ×2 (08:19→20:36)
[2023-02-02] MEDS: PANTOprazole 40 MG TAB PO SCH (08:19)
[2023-02-02] MEDS: ROSUVASTATIN CALCIUM 20 MG TAB PO SCH (08:20)
--- NOTE | 2023-02-02 08:39 | XCELERA ---
[id number]
[2023-02-02] MEDS: ASPIRIN 81 MG ECTAB PO SCH (08:47)
[2023-02-02] MEDS ORDERED: ROSUVASTATIN CALCIUM 10 MG TAB PO SCH (09:00)
[2023-02-02 09:19] LABS: Estimated Average Glucose 105 mg/dl; Hemoglobin A1C 5.3 % (4.5-5.6)
[2023-02-02] MEDS ORDERED: NITROGLYCERIN/D5W 100MCG/ML 20ML SYR ONE (11:30)
[2023-02-02] MEDS ORDERED: fentaNYL citrate 100 MCG/2 ML VIAL ONE (11:30)
[2023-02-02] MEDS ORDERED: HEPARIN (PORCINE) 1000 UNIT/ML 10 ML (CATH LAB USE ONLY) ONE ×2 (11:30→12:18)
[2023-02-02] MEDS ORDERED: niCARdipine HCL INJ 2.5 MG/ML 10 ML AMP ONE (11:30)
[2023-02-02] MEDS ORDERED: MIDAZOLAM HCL 1 MG/ML 2ML VIAL ONE (11:30)
--- NOTE | 2023-02-02 11:45 | Pre Anesthesia Assessment ---
Date of Service February 02, 2023 Pre Sedation Assessment Vital Signs Temp Pulse Pulse Pulse Resp BP BP 02/02/23 11:22 77 131 H 131/78 02/02/23 10:35 36.8 C 66 18 02/02/23 09:54 36.6 C 63 18 105/66 02/02/23 08:00 02/02/23 08:55 70 18 98/61 L 02/02/23 08:50 65 16 113/72 02/02/23 08:11 36.7 C 67 18 02/02/23 07:00 61 02/02/23 03:56 36.8 C 68 20 02/02/23 00:00 68 02/01/23 23:12 37.0 C 66 18 02/01/23 15:00 62 02/01/23 14:55 02/01/23 14:55 36.4 C L 62 18 02/01/23 14:47 36.4 C L 62 18 02/01/23 14:27 02/01/23 13:45 133/91 02/01/23 13:45 61 13 02/01/23 13:30 75 21 02/01/23 13:15 64 17 02/01/23 13:15 152/96 H 02/01/23 13:00 76 23 02/01/23 13:00 142/100 H 02/01/23 12:45 65 15 02/01/23 12:45 128/87 02/01/23 12:30 60 17 02/01/23 12:30 115/83 02/01/23 12:20 110/95 02/01/23 12:20 66 15 02/01/23 11:48 65 17 02/01/23 11:48 146/99 H 02/01/23 11:45 144/94 H 02/01/23 11:45 60 14 BP Pulse Ox O2 Del Method 02/02/23 11:22 98 Room Air 02/02/23 10:35 110/75 97 Room Air 02/02/23 09:54 95 Room Air 02/02/23 08:00 Room Air 02/02/23 08:55 95 Room Air 02/02/23 08:50 92 Room Air 02/02/23 08:11 103/61 94 Room Air 02/02/23 07:00 02/02/23 03:56 106/70 97 Room Air 02/02/23 00:00 02/01/23 23:12 107/66 97 Room Air 02/01/23 15:00 02/01/23 14:55 Room Air 02/01/23 14:55 134/91 97 Room Air 02/01/23 14:47 134/91 97 Room Air 02/01/23 14:27 132/82 02/01/23 13:45 02/01/23 13:45 97 Room Air 02/01/23 13:30 97 02/01/23 13:15 97 02/01/23 13:15 02/01/23 13:00 99 02/01/23 13:00 02/01/23 12:45 98 02/01/23 12:45 02/01/23 12:30 98 Room Air 02/01/23 12:30 02/01/23 12:20 02/01/23 12:20 98 Room Air 02/01/23 11:48 97 02/01/23 11:48 02/01/23 11:45 02/01/23 11:45 98 Room Air Cardiovascular RRR, no murmur, no edema Respiratory normal respiratory effort, lungs clear to auscultation Pre-Sedation Airway Assessment Smoking Status: Current every day smoker Short, Thick Neck: No Thyromental Distance: > or= 3.5 Finger Breadths Oral Cavity: + WNL Mallampati Class: II ASA: ASA3 NPO Status Date of Last Intake of Fluids: 02/01/23 Time of Last Intake of Fluids: 22:00 Notes The planned sedation has been discussed with the patient. Informed Consent was obtained. I have identified the patient, determined the appropriateness of sedation and have assessed the patient immediately prior to the procedure. All medicine(s) and interventions are by my order. [facility] [place] Procedure Codes (Charges) Indication for Procedure Indication for procedure: NSTEMI
--- NOTE | 2023-02-02 12:21 | Electrocardiogram Report ---
Test Reason : Blood Pressure : / mmHG Vent. Rate : 061 BPM Atrial Rate : 061 BPM P-R Int : 176 ms QRS Dur : 084 ms QT Int : 420 ms P-R-T Axes : 049 059 066 degrees QTc Int : 422 ms Normal sinus rhythm Nonspecific T wave abnormality Anterior leads Abnormal ECG When compared with ECG of 01-FEB-2023 09:46, Nonspecific T wave abnormality now evident in Anterior leads Confirmed by Addy Elaine ([id number]) on 02/02/2023 12:20:45 PM Referred By: REFERRED SELF Confirmed By:Addy Elaine
--- NOTE | 2023-02-02 12:25 | Electrocardiogram Report ---
Test Reason : Blood Pressure : / mmHG Vent. Rate : 063 BPM Atrial Rate : 063 BPM P-R Int : 182 ms QRS Dur : 086 ms QT Int : 424 ms P-R-T Axes : 066 071 076 degrees QTc Int : 433 ms Normal sinus rhythm with sinus arrhythmia T wave abnormality, consider anterolateral ischemia Abnormal ECG When compared with ECG of 01-FEB-2023 21:20, Inverted T waves have replaced nonspecific T wave abnormality in Anterior leads Confirmed by Addy Elaine ([id number]) on 02/02/2023 12:24:51 PM Referred By: REFERRED SELF Confirmed By:Addy Elaine
--- NOTE | 2023-02-02 12:26 | Electrocardiogram Report ---
Test Reason : Blood Pressure : / mmHG Vent. Rate : 062 BPM Atrial Rate : 062 BPM P-R Int : 176 ms QRS Dur : 084 ms QT Int : 430 ms P-R-T Axes : 065 076 085 degrees QTc Int : 436 ms Normal sinus rhythm with sinus arrhythmia T wave abnormality, consider anterolateral ischemia Abnormal ECG When compared with ECG of 02-FEB-2023 05:13, No significant change was found Confirmed by Addy Elaine ([id number]) on 02/02/2023 12:26:36 PM Referred By: REFERRED SELF Confirmed By:Addy Elaine
[2023-02-02] MEDS ORDERED: TICAGRELOR 90 MG TAB ONE (12:31)
--- NOTE | 2023-02-02 12:58 | Post Anesthesia Assessment ---
Date of Service February 02, 2023 Post Sedation Assessment Vital Signs Temp Pulse Pulse Pulse Resp BP BP 02/02/23 12:40 55 L 18 120/75 02/02/23 11:22 77 131 H 131/78 02/02/23 10:35 36.8 C 66 18 02/02/23 09:54 36.6 C 63 18 105/66 02/02/23 08:00 02/02/23 08:55 70 18 98/61 L 02/02/23 08:50 65 16 113/72 02/02/23 08:11 36.7 C 67 18 02/02/23 07:00 61 02/02/23 03:56 36.8 C 68 20 02/02/23 00:00 68 02/01/23 23:12 37.0 C 66 18 02/01/23 15:00 62 02/01/23 14:55 02/01/23 14:55 36.4 C L 62 18 02/01/23 14:47 36.4 C L 62 18 02/01/23 14:27 02/01/23 13:45 133/91 02/01/23 13:45 61 13 02/01/23 13:30 75 21 02/01/23 13:15 64 17 02/01/23 13:15 152/96 H BP Pulse Ox O2 Del Method 02/02/23 12:40 96 Room Air 02/02/23 11:22 98 Room Air 02/02/23 10:35 110/75 97 Room Air 02/02/23 09:54 95 Room Air 02/02/23 08:00 Room Air 02/02/23 08:55 95 Room Air 02/02/23 08:50 92 Room Air 02/02/23 08:11 103/61 94 Room Air 02/02/23 07:00 02/02/23 03:56 106/70 97 Room Air 02/02/23 00:00 02/01/23 23:12 107/66 97 Room Air 02/01/23 15:00 02/01/23 14:55 Room Air 02/01/23 14:55 134/91 97 Room Air 02/01/23 14:47 134/91 97 Room Air 02/01/23 14:27 132/82 02/01/23 13:45 02/01/23 13:45 97 Room Air 02/01/23 13:30 97 02/01/23 13:15 97 02/01/23 13:15 Recovery Score Activity: Moves 4 extremities Respiration: Deep Breath/Cough Circulation: +/-20% PreAnes Value Consciousness: Fully Awake Oxygen Saturation: > 92% On Room Air Post Anesthesia Score: 10 Discharge Sedation Level of Care: Fast Track Phase II Post Sedation Plan On clinical assessment, the patient appears to have tolerated the sedation without complications. Patient is recovering as anticipated. Patient will continue to be monitored by nursing and may be discharged when sedation discharge criteria are met per below protocol. Upon Completions of procedure up to 15 minutes continue every 5 minute vital signs and the P.A.R. score; then discharge to a Phase I or Fast Track to Phase II per the following guidelines: * Discharge Patient to appropriate Phase II area if PAR is 8 or greater or return to pre- procedure baseline. The post - procedure orders will be as directed. * If PAR score is less than 8 or not return to pre-procedure baseline then patient will follow Phase I monitoring till PAR is reached for Phase II. The Phase I may be done in procedure room or may call to secure a Phase I area. * If naloxone or flumazenil are used for reversal, hold in Phase I for continued monitoring from when last reversal dose was given for a minimum of 60 minutes or longer pending the nurse and/or physician discretion of patient condition before discharge to Phase II. Please call the Sedation Physician to re-evaluate and complete post-note for discharge to Phase II area. Do NOT discharge from procedure sedation or Phase 1 until post- sedation evaluation note is complete by procedure /sedation MD Sedation Discharge Instructions to be given to the patient at discharge to home. [facility] Procedure Codes (Charges) Indication for Procedure Indication for procedure: NSTEMI Sedation/Anesthesia Procedure 1: Sedation/Anesthesia: 06835 Mod Sedation by the same physician;Init15 Min Child Age 5 & Up (Initial 15-minute ) Total Sedation Time (minutes): 36 Procedure 2: Sedation/Anesthesia: 27765 Mod Sedation by the same physician; Ea [id number] Minutes (Additional 21 minutes) Total Sedation Time (minutes): 36
--- NOTE | 2023-02-02 14:15 | Cardiac Catheterization ---
ACC Data: Paediatrician Cardiac Status Clinical evaluation leading to the procedure CAD Presenation: Non STEMI Anginal Classification: CCS IV Heart Failure: No Cardiogenic Shock within 24 Hours: No Cardiac Arrest within 24 Hours: No Imaging Studies Past 6 Months: Yes Stress Studies Past 6 Months: No STEMI OR Non-STEMI Symptom Onset Date: 02/01/23 Coronary Anatomy Dominant: Right Left Main (% Stenosis): Normal LAD (% Stenosis): Proximal (Mild) and Mid (100%) D1 (% Stenosis): Normal (Mild) Circumflex (% Stenosis): Normal (Scattered mild) OM1 (% Stenosis): Normal L PL1 (% Stenosis): Normal RCA (% Stenosis): Proximal (Mild) and Mid (Mild) R PDA (% Stenosis): Normal R PL1 (% Stenosis): Normal Ramus (% Stenosis): Normal (Diffuse mild) Diagnostic Physicians Name: Donnell Evans MD, PhD Closure Device Percutaneous Entry Location: Radial Closure Device: Radial Band Recommendations: Medical Therapy and/or Counseling and PCI without planned CABG PCI Indication: PCI for high risk Non-CRISTOBAL Lesion Segment Name: Mid LAD Culprit Artery: Yes Stenosis Prior to Rx (%): 100% Chronic Total Occlusion: No Pre-Procedure YAZAN Flow: 0 Previously Treated Lesion: No Lesion Complexity: Non-High/Non-C Lesion Length (mm): 12 Thrombus Present: Yes Bifurcation Lesion: No Guidewire Across Lesion: Yes Intraprocedure Events Significant Disection: No Perforation: No Cardiac Cath Procedure Full Procedure Date February 02, 2023 Pre-Procedure Diagnosis Pre-Procedure Diagnosis: Non STEMI AUC Score AUC Score: 07 Post-Procedure Diagnosis Post-Procedure Diagnosis: Severe CAD and Successful PCI Procedure(s) Performed Procedure(s) Performed: Coronary Angiography, Drug Eluting Stent and Ultrasound Guided Vascular Access Dry Goods Inspector Donnell Evans MD, PhD Estimated Blood Loss Estimated Blood Loss: 10 ML Medication(s) Medication(s): Fentanyl, Heparin, Lidocaine 1%, Nicardipine, Nitroglycerin and Versed Summary of Findings Brief description: Patient was brought to the cardiac catheterization suite where he was shaved and prepped in a sterile fashion. He was sedated using IV Versed and fentanyl. Soft tissues of the right wrist were anesthetized using 2 mL of 1% Xylocaine. Using the ultrasound for guidance, the right radial artery was accessed and a 6 [place] radial artery glide sheath was placed. ACT was checked and additional heparin was provided as needed to maintain therapeutic ACT. Patient was provided antispasmodics including nicardipine and nitroglycerin. All catheters were advanced and exchanged over a 0.035 J-tip wire. Left coronary angiography was performed in orthogonal views with a 5 [place] 4 diagnostic catheter as well as a 6 [place] EBU 3.0 guide catheter (cranial views). Right coronary angiography was performed in orthogonal views with a 5 [place] Powder[place] 4 diagnostic catheter. We next proceeded with PCI after removal of the diagnostic catheters. Using the 6 [place] EBU 3.0 guide catheter, a BMW universal guidewire was advanced and positioned distally in the LAD. Predilatation using a 2.0 x 12 mm mini trek balloon inflated initially to 8 fabienne followed by 14 fabienne. Implantation of a 2.5 x 18 mm hayder point drug-eluting stent with final dilatation at 14 fabienne. Stent delivery system and guidewire were removed. Final angiographic evaluation performed in orthogonal views. Guide catheter removed. Radial artery sheath was removed. Hemostasis was obtained using the TR band. Patient was hemodynamically stable and asymptomatic. He was provided 180 mg of p.o. Brilinta and return to the recovery area. This ended the case. Coronary angiography findings: LMT: Very large caliber and very short. Trifurcates into LAD, ramus, and circumflex. No disease. LAD: This is a large-caliber. Proximal segment is long with diffuse mild disease. It provides a large first septal branch and a medium to large caliber branching first diagonal. Then the vessel is 100% occluded in the midsegment and there is staining noted in the vessel. YAZAN 0 flow distally. The diagonal branch has diffuse mild disease. The most distal LAD and apical LAD are seen to fill via right to left collateralization and are noted to be transapical. Ramus: This is large caliber and long. Branches distally as it approaches the apex. There is diffuse mild disease less than 30% stenosis. LCx: Large caliber and nondominant. Travels in the AV groove giving a medium to large caliber multi branching OM1. Then it becomes smaller and terminates as a small posterolateral branch after providing a small atrial branch. The circumflex and its branches have no more than diffuse luminal irregularities. RCA: This is large caliber and dominant. Ostial there is a smooth 20 to 30% stenosis. Proximal segment has mild luminal irregularities. The mid segment has more focal mild disease of up to 20 to 30% narrowing in the distal vessel has no significant disease. It then bifurcates into a large caliber branching posterior lateral as well as a large caliber PDA. These vessels have no more than mild luminal irregularities and the distal RCA provides right to left collateralization to the LAD via the septal branches. PCI of LAD: There is 0% residual stenosis post PCI of the mid LAD. Reestablishment of YAZAN-3 flow post PCI No evidence of dissection or perforation post PCI Mid and distal LAD anatomy are visualized and demonstrate multiple septal branches in addition to a medium caliber second diagonal and a small caliber third diagonal. There is no more than mild luminal irregularities in the remainder of the LAD and its branches. Recommendations: Dual antiplatelet therapy with aspirin and Brilinta for 1 to 2 years Guideline directed medical therapy for secondary prevention of coronary disease to include; low-dose aspirin, high intensity statin therapy, beta-verena, plus or minus ALEKSANDR inhibitor/ARB as tolerated. Hemodynamics Rest Ao:: 104/75 mmHg, mean 88 mmHg Final Ao: 116/69 mmHg, mean 91 mmHg LV: Not performed Recommendations Recommendations: Medical Therapy and/or Counseling and PCI without planned CABG Radiation Exposure (mGy) 963 mGy, fluoroscopy time 8.3 minutes Contrast (mls) 145 mL Anesthesia 2 mg IV Versed, 50 mcg IV fentanyl Procedural Complication(s) None Disposition Recovery Room\PACU I attest to the content of the Intraoperative Record and any orders documented therein. Any exceptions are noted below. [facility] [place] Card Cath Procedure Codes Cardiac Catheterization Procedure 1: Cardiovascular Cath Procedures: 88366 Coronaries Therapeutic Services & Ancillary Procedure 1: Cardiovascular Tx and Anc Procedures: 88114 Ultrasonic Guidance Vascular Access Moderate Sedation Procedure 1: Sedation/Anesthesia: 82404 Mod Sedation by the same physician;Init15 Min Child Age 5 & Up (Initial 15 minutes (total 36 minutes)) Procedure 2: Sedation/Anesthesia: 84170 Mod Sedation by the same physician; Ea [id number] Minutes (Additional 21-minute (total 36 minutes)) Stenting Procedure 1: Cardiovascular Stent Procedures: 86419 Perc transcatheter placement of intracoronary stent(s), with ang (LAD) PG Care Time/CCT Total # of Minutes Spent Total Time Spent with Patient: Total time spent is greater than 50% in coordination of care (as documented) at patient's floor/unit and/or counseling patient:
--- NOTE | 2023-02-02 14:32 | Cardiology Progress Note ---
Date of Service February 02, 2023 Assessment & Plan (1) NSTEMI (non-ST elevated myocardial infarction): Plan: Occlusion of the LAD. Status post PCI with implantation of a drug-eluting stent. He did have collateral flow to the distal vessel which will likely improve his recovery. He will remain on dual antiplatelet therapy with aspirin 81 mg daily and ticagrelor 90 mg p.o. twice daily. We have initiated guideline directed medical therapy including metoprolol and high intensity statin therapy. ALEKSANDR inhibitor or angiotensin receptor verena can be utilized if necessary to maintain his blood pressure at appropriate level. He will need risk factor modification including discontinuation of tobacco, increased cardiovascular exercise, improve diet and cholesterol, treat hypothyroidism to target. We do strongly recommend outpatient cardiac rehab to improve morbidity, mortality, and quality of life. (2) Hyperlipidemia: Plan: Patient is high risk. High intensity statin therapy recommended. His Crestor has been increased from 10 to 20 mg. We will check a fasting lipid panel after 3 months therapy. (3) Hypertension: Plan: Blood pressure is adequately controlled at this time. Continue current regimen. If blood pressure increases add ALEKSANDR inhibitor or angiotensin receptor verena. Plan He will remain hospitalized for at least another 24 hours. Assuming no complications from IN or procedure then he will be appropriate for discharge. Admission and Anticipated Discharge Date Admission Date: February 01, 2023 Subjective Patient feeling well at this time. No chest pain prior to procedure. His troponin is now trending downward. Had echocardiogram demonstrating low normal EF with distal LAD territory wall motion abnormalities fairly severe. He subsequently underwent cardiac catheterization confirming acute occlusion of the mid LAD which was successfully treated by drug-eluting stent implantation. No significant disease elsewhere. Tolerated procedure well. Has been initiated on medical management and states that his breathing is better. He voices no other complaints or concerns at this time. Review of Systems Review of Systems: Negative except as per HPI Physical Exam Constitutional: WD/WN, vitals as above Neck: No JVD or bruits Respiratory: Clear to auscultation bilaterally. No wheezing, rhonchi, or rales. Cardiovascular: Regular rate and rhythm. S4 gallop. No rubs or murmurs. No edema. Musculoskeletal: no cyanosis or clubbing, extremities motor strength 5/5 Neurologic: Cognition intact. Speech is fluent. No focal deficits. No tremor. Psychiatric: A+Ox3, euthymic affect (Mildly anxious) Results & Data ([facility]) Vital Signs (Past 12 Hours) Vital Signs Temp Pulse Pulse Pulse Resp BP BP 02/02/23 14:08 36.7 C 79 16 125/84 02/02/23 13:36 36.7 C 50 L 15 119/79 02/02/23 13:54 36.7 C 58 L 15 111/75 02/02/23 13:24 36.5 C 50 L 15 123/78 02/02/23 12:55 56 L 18 115/78 02/02/23 12:40 55 L 18 120/75 02/02/23 11:22 77 131 H 131/78 02/02/23 10:35 36.8 C 66 18 110/75 02/02/23 09:54 36.6 C 63 18 105/66 02/02/23 08:00 02/02/23 08:55 70 18 98/61 L 02/02/23 08:50 65 16 113/72 02/02/23 08:11 36.7 C 67 18 103/61 02/02/23 07:00 61 02/02/23 03:56 36.8 C 68 20 106/70 Pulse Ox O2 Del Method 02/02/23 14:08 96 Room Air 02/02/23 13:36 97 Room Air 02/02/23 13:54 97 Room Air 02/02/23 13:24 97 Room Air 02/02/23 12:55 96 Room Air 02/02/23 12:40 96 Room Air 02/02/23 11:22 98 Room Air 02/02/23 10:35 97 Room Air 02/02/23 09:54 95 Room Air 02/02/23 08:00 Room Air 02/02/23 08:55 95 Room Air 02/02/23 08:50 92 Room Air 02/02/23 08:11 94 Room Air 02/02/23 07:00 02/02/23 03:56 97 Room Air PG Care Time/CCT Total # of Minutes Spent Total Time Spent with Patient: Total time spent is greater than 50% in coordination of care (as documented) at patient's floor/unit and/or counseling patient: Coding [place] [address] SUB INP/OBS CARE 2/35MIN Patient Type Established Diagnoses NSTEMI (non-ST elevated myocardial infarction) I21.4 Hyperlipidemia E78.5 Hypertension I10
--- NOTE | 2023-02-02 14:37 | Electrocardiogram Report ---
Test Reason : Blood Pressure : / mmHG Vent. Rate : 052 BPM Atrial Rate : 052 BPM P-R Int : 184 ms QRS Dur : 082 ms QT Int : 470 ms P-R-T Axes : 052 072 096 degrees QTc Int : 437 ms Sinus bradycardia T wave abnormality, consider anterolateral ischemia Abnormal ECG When compared with ECG of 02-FEB-2023 07:23, T wave inversion more evident in Anterior leads Confirmed by Addy Elaine ([id number]) on 02/02/2023 2:37:23 PM Referred By: REFERRED SELF Confirmed By:Addy Elaine
--- NOTE | 2023-02-02 20:27 | Hospitalist Progress Note ---
Date of Service February 02, 2023 Assessment & Plan (1) Left-sided chest pain: Plan: This is a 52-year-old male with a history of hypertension, GERD, HLD, Raj's thyroiditis on thyroid replacement therapy, hyperlipidemia, tobacco use who presented to [facility] for evaluation of a constellation of symptoms, including a burning-like chest pain and a different quality of L arm pain, alongside numbness in his L face, upper back, and dysarthria. Chest Pain, Left Arm Pain, Facial Flushing - Reports intermittent episodes of burning-like CP associated with facial flushing and a different-type of L arm pain for nearly 10 years, not assoc. w/ exertion -- pain has been relieved with antacids in the past - Episode STRATEGIC CONSULTANT was more severe and also assoc. w/ strokelike symptoms (in the setting of recent TSH depression and levothyroxine dose lowering) - Work-up as follows: - hs-Trp: 262 on arrival, repeat pending - TSH, fT4 repeats pending (last at 0.034 on 01/18) - CTA-H/N no acute insults, though does demonstrate R maxillary mucous retention cyst - (2019) CTA - RLL nodule, 3mm at the time - RFs: Smoker, male >50, HLD, HTN; HEART score 6 - Pending: A1c, lipid panel, fractionated metanephrine (serum) - Intially exact etiology unclear and may be multifactorial. His notable HTN, elevated troponin, and strokelike symptoms may be c/w HTN emergency; odd though this resolved without any intervention. ACS as primary etiology is considered given his risk factors. CP may also have contribution or underpinnings with dyspepsia, especially given relief in the past. Lower suspicion for PE. His recurrent flushing and fluctuating HTN also separately raise suspicion for neuroendocrine process, such as a pheo. - Nitro paste, ASA x 2 given in the ED -- will continue - Check CTA-Chest, A/P + TTE - Consult cardiology: Cardiac cath showed Occluded LAD: Status post PCI with implantation of a drug-eluting stent - Initiate rosuvastatin 10mg daily - Consider beta verena initiation pending MRI, CT, TTE - Give Pepcid and GI cocktail now, increase daily PPI dose (2) Elevated troponin: Plan: - As outlined above. HEART score 6. (3) Stroke-like symptoms: Plan: Strokelike Symptoms - Patient and reporting transient upper back/L face and arm paraesthesias, generalized weakness, which are atypical for him; resolved STRATEGIC CONSULTANT - With numerous risk factors for ASCVD - Difficult to rule-out HTN contribution to this especially given concurrent chest pain and bumped troponin - CTA-H/N without acute vascular or hemorrhagic processes - MRI brain: negative - Rosuvastatin will be initiated - Smoking cessation will be critical (4) Raj's thyroiditis: Plan: Hypothyroidism - Recent TSH 0.034 and fT4 1.31, dose recently lowered to levothyroxine 100mcg daily - Await recheck of TSH, fT4 - Continue levothyroxine (5) GERD (gastroesophageal reflux disease): Plan: GERD - Known history of GERD, esophagitis, esophageal dysmotility per review of record - May have underpinnings in his chest pain, burning quality extending up his throat - Continue PPI - Will give famotidine and GI cocktail x 1 - NPO for now, resume HH diet once situation becomes more clear (6) Hypertension: Plan: HTN -- ??Possibly HTN Emergency - He has now had two highly HTN range readings within the last week. He likely has underlying HTN - This AM, reportedly at ~185/100 (and similar early in the week) - though downtrended on its own without treatment - Presently normotensive -- will hold from any antiHTN initiation until situation becomes more clear - Can consider initiation of BB or ARB - Metanephrines sent given hx. -BP better controlled (7) Abdominal pain: Plan: Abdominal Pain resolved - Patient reports longstanding history of waxing-waning RUQ abdominal pain since his CCY several years ago - Does have hernia on exam - reducible when pressed, not really the site of pain; +murphys sign - Unclear etiology. Given significant worsening and recent HTN episode, will proceed with CT-A/P with contrast - GI cocktail, as above; will consider analgesics pending response, scan (8) NSTEMI (non-ST elevated myocardial infarction): Plan Code: Full PPX: Will consider pharmacologic pending work-up above Dispo: MST Diet: NPO Admission and Anticipated Discharge Date Admission Date: February 01, 2023 Subjective Patient reports feeling well. He has no new symptoms. In fact, he feels much beter after the cardiac cath. Review of Systems Review of Systems: All systems reviewed & are unremarkable except as noted in HPI & below Physical Exam Physical Exam: Constitutional: Alert, cooperative and in no distress. HEENT: Unremarkable Neck: No jugular venous distention, carotid pulses are normal and equal bilaterally without bruits. Pulmonary: Clear to auscultation bilaterally. Cardiac: Regular rhythm with no murmur, gallop or rub. Abdomen: Soft, nontender with normal bowel sounds. Extremities: No edema. Distal pulses intact. Neurologic: No focal findings. Gait was not tested. Skin: No rash, ecchymoses or petechiae. Results & Data Results & Data ([facility]) Vital Signs (Past 12 Hours) Vital Signs Temp Pulse Pulse Pulse Resp BP BP 02/02/23 19:27 37.0 C 72 12 103/69 02/02/23 17:24 36.3 C L 75 75 16 119/79 02/02/23 16:24 36.7 C 61 15 113/75 02/02/23 15:48 51 L 02/02/23 15:24 36.6 C 59 L 14 118/75 02/02/23 14:38 36.5 C 60 14 121/78 02/02/23 14:08 36.7 C 79 16 125/84 02/02/23 13:36 36.7 C 50 L 15 119/79 02/02/23 13:54 36.7 C 58 L 15 111/75 02/02/23 13:24 36.5 C 50 L 15 123/78 02/02/23 12:55 56 L 18 115/78 02/02/23 12:40 55 L 18 120/75 02/02/23 11:22 77 131 H 131/78 02/02/23 10:35 36.8 C 66 18 110/75 02/02/23 09:54 36.6 C 63 18 105/66 02/02/23 08:55 70 18 98/61 L 02/02/23 08:50 65 16 113/72 Pulse Ox O2 Del Method 02/02/23 19:27 98 Room Air 02/02/23 17:24 97 Room Air 02/02/23 16:24 98 Room Air 02/02/23 15:48 02/02/23 15:24 98 Room Air 02/02/23 14:38 97 Room Air 02/02/23 14:08 96 Room Air 02/02/23 13:36 97 Room Air 02/02/23 13:54 97 Room Air 02/02/23 13:24 97 Room Air 02/02/23 12:55 96 Room Air 02/02/23 12:40 96 Room Air 02/02/23 11:22 98 Room Air 02/02/23 10:35 97 Room Air 02/02/23 09:54 95 Room Air 02/02/23 08:55 95 Room Air 02/02/23 08:50 92 Room Air PG Care Time/CCT Total # of Minutes Spent Total Time Spent with Patient: Total time spent is greater than 50% in coordination of care (as documented) at patient's floor/unit and/or counseling patient: Coding Level of Care Code 07829 SUB INP/OBS CARE 2/35MIN Diagnoses Left-sided chest pain R07.9 Elevated troponin R77.8 Stroke-like symptoms R29.90 Raj's thyroiditis E06.3 GERD (gastroesophageal reflux disease) K21.9 Hypertension I10 Abdominal pain R10.9 NSTEMI (non-ST elevated myocardial infarction) I21.4
[2023-02-03] MEDS: TIROSINT PO SCH (05:37)
[2023-02-03 06:33] LABS: Basophils # (auto) 0.05 K/uL (0-0.2); Basophils % (auto) 0.6 %; Eosinophils # (auto) 0.18 K/uL (0-0.50); Eosinophils % (auto) 2.3 %; Hematocrit (blood only) 43.4 % (42.0-52.0); Hemoglobin 15.5 g/dl (14.0-18.0); Immature Granulocytes # (auto) 0.02 K/uL (0.01-0.20); Immature Granulocytes % (auto) 0.3 %; Lymphocytes % (auto) 28.1 %; Mean Corpuscular Hemoglobin 31.2 pg (25.0-34.0); Mean Corpuscular Hgb Conc 35.7 g/dL (32.0-36.0); Mean Corpuscular Volume 87.3 fL (80.0-100.0); Mean Platelet Volume 11.2 fL (9.4-12.4); Monocytes # (auto) 0.48 K/uL (0.11-0.59); Monocytes % (auto) 6.1 %; Neutrophils # (auto) 4.91 K/uL (1.40-6.50); Neutrophils % (auto) 62.6 %; Platelet Count 193 K/uL (130-400); RDW Coefficient of Variation 12.7 % (11.5-14.5); RDW Standard Deviation 40.6 fL (36.4-46.3); Red Blood Count 4.97 M/uL (4.70-6.10); White Blood Count 7.84 K/ul (4.8-10.8)
[2023-02-03 06:53] LABS: BUN Creatinine Ratio 12.3 (10-20); Calcium 9.2 mg/dl (8.5-10.1); Creatinine Clr Calc Pharmacy 71.6 ml/min; Est GFR (African American) 68.1 ml/min; Est GFR (Non-African American) 58.8 ml/min; Potassium 4.1 mmol/L (3.5-5.1)
[2023-02-03 07:01] LABS: Partial Thromboplastin Ratio 1.1; Partial Thromboplastin Time 30.5 Seconds (21.0-31.0)
[2023-02-03] MEDS: ASPIRIN 81 MG ECTAB PO SCH (08:03)
[2023-02-03] MEDS: ROSUVASTATIN CALCIUM 20 MG TAB PO SCH (08:04)
[2023-02-03] MEDS: METOPROLOL TARTRATE 25 MG TAB PO SCH (08:07)
[2023-02-03] MEDS: PANTOprazole 40 MG TAB PO SCH (08:50)
[2023-02-03] MEDS ORDERED: TICAGRELOR 90 MG TAB PO SCH (09:00)
[2023-02-03] MEDS ORDERED: STROKE PATIENT DISCHARGE STA (13:19)
--- NOTE | 2023-02-03 13:57 | Pharmacy Report ---
- Date of Service February 03, 2023 - Pharmacy CVA/TIA Medication Review Medications to Prevent Stroke handout has been added to the patients discharge packet. Antiplatelet(s) * Brilinta 90 mg PO BID - NSTEMI * Aspirin 81 mg PO daily Cholesterol * High intensity statin: rosuvastatin 20 mg daily Therapeutic Anticoagulation * No history of Afib/Aflutter noted Type 2 Diabetes * Patient does not have T2DM
--- NOTE | 2023-02-06 10:42 | Pharmacy Report ---
Pharmacist Stroke Counseling - Date of Service February 06, 2023 - Scope: Pharmacy has been consulted to provide medication discharge counseling for this patient admitted with possible transient ischemic attack and NSTEMI as per the Pharmacist Discharge Counseling for Stroke Patients Protocol. - Medications on Discharge: Home Medications Medication Instructions Recorded Confirmed levothyroxine 100 mcg capsule 100 mcg PO DAILY 02/01/23 02/01/23 (Tirosint) New Rx's Medication Instructions Recorded pantoprazole 40 mg tablet,delayed 40 mg PO QAM #90 tabs 11/29/22 release aspirin 81 mg capsule 81 mg PO DAILY #30 caps 02/03/23 metoprolol succinate 50 mg 50 mg PO PM #30 tabs 02/03/23 tablet,extended release 24 hr rosuvastatin 20 mg tablet (Crestor) 20 mg PO DAILY #30 tabs 02/03/23 ticagrelor 90 mg tablet (Brilinta) 90 mg PO BID #60 tabs 02/03/23 - Action: The above medications, specifically ones for stroke treatment/prophylaxis, have been reviewed in detail with the patient and/or patient hobbies and crafts sales representative(s) prior to discharge. This includes indication, common adverse reactions, drug interactions, and medication administration. Medication counseling has been employed using the teach-back method to ensure understanding. - Outcome: The patient and/or patient hobbies and crafts sales representative(s) have demonstrated understanding of the medications. Additional comments: - Discussed new medications and medication changes with patient via telephone - Patient had prescriptions in hand and was able to confirm each. Also confirmed that he has aspirin 81 mg OTC at home. - Instructed patient to continue DAPT with aspirin/Brilinta indefinitely (until told otherwise by cardiology/PCP), made aware of increased bleeding risk while on both - Patient reports prior muscle pains with rosuvastatin 20 mg, but now is not certain if it was a result of medication or not. Reinforced importance of taking the increased dose, but to self-monitor for return of those symptoms and to discuss with provider before stopping. - No obvious barriers to medication compliance identified Thank you for allowing pharmacy to be involved in the care of this patient. Please call [phone] with any additional questions
[2023-02-07 15:42] LABS: Metanephrine, Plasma <25 pg/mL (<=57); Normetanephrine Plasma 35 pg/mL (<=148); Total Metanephrine Plasma 35 pg/mL (<=205)
== END 2023-02-03 15:30 | disposition home or self-care (01) | DRG 247 ==
LOC: ED 08:51 → SUATTDRO 10:54 → EDINP 10:54 → 2N 14:18 → 4W 02-02 13:20
PROC: CLB.CCO (2023-02-02 12:30)

== ENCOUNTER 2023-06-06 20:53 | Observation (INO) ==
[2023-06-06 21:50] LABS: Albumin Globulin Ratio 1.9 (0.9-2); Albumin Level 4.9 gm/dl (3.4-5.0); BUN Creatinine Ratio 13.8 (10-20); Bilirubin,Total 0.5 mg/dl (0.2-1.0); Calcium 9.2 mg/dl (8.6-10.3); Creatinine Clr Calc Pharmacy 85.1 ml/min; Est GFR (Non-African American) 72.5 ml/min; Globulin 2.6 gm/dl (2.5-4.0); Total Protein 7.5 gm/dl (6.0-8.3)
[2023-06-06 22:09] LABS: Basophils # (auto) 0.05 K/uL (0-0.2); Basophils % (auto) 0.7 %; Eosinophils # (auto) 0.19 K/uL (0-0.50); Eosinophils % (auto) 2.7 %; Hematocrit (blood only) 44.3 % (42.0-52.0); Hemoglobin 15.6 g/dl (14.0-18.0); Immature Granulocytes # (auto) 0.01 K/uL (0.01-0.20); Immature Granulocytes % (auto) 0.1 %; Lymphocytes % (auto) 30.3 %; Mean Corpuscular Hemoglobin 30.8 pg (25.0-34.0); Mean Corpuscular Hgb Conc 35.2 g/dL (32.0-36.0); Mean Corpuscular Volume 87.5 fL (80.0-100.0); Mean Platelet Volume 11.3 fL (9.4-12.4); Monocytes # (auto) 0.35 K/uL (0.11-0.59); Monocytes % (auto) 5.1 %; Neutrophils # (auto) 4.22 K/uL (1.40-6.50); Neutrophils % (auto) 61.1 %; Platelet Count 185 K/uL (130-400); RDW Coefficient of Variation 13.2 % (11.5-14.5); RDW Standard Deviation 42.1 fL (36.4-46.3); Red Blood Count 5.06 M/uL (4.70-6.10); White Blood Count 6.92 K/ul (4.8-10.8)
[2023-06-06] MEDS ORDERED: ASPIRIN 81 MG CHEW PO STA (23:02)
[2023-06-06] MEDS ORDERED: NITROGLYCERIN 2% OINTMENT 30GM TUBE EXT ONE (23:02)
--- NOTE | 2023-06-06 23:14 | Emergency Department Note ---
History of Present Illness General Chief complaint: Chest Pain Stated complaint: CHEST/ARM PAIN,SICK EARLIER Time Seen by Provider: 06/06/23 22:53 History of Present Illness Maximum Pain Intensity: 6 This is a 52-year-old male presenting to the emergency department for evaluation of left-sided chest and left arm pain for the past 24 hours. Patient does not report any injury or trauma. His pain is somewhat different in the chest and the arm. It is primarily along the left sternal border and feels very sore when pressing in the area. He does have some vague discomfort into his left shoulder however and into his left arm. The patient did have a 100% LAD STEMI about 3- 1/2 months ago. He is on aspirin and Plavix and states that he is taking the medication as prescribed. No fevers or chills. No difficulty breathing. He has not taken anything [id number] for symptoms, and rates his discomfort a 6/10. He is able to move the arm without difficulty. Home Medications Medication Instructions Recorded Confirmed Type aspirin 81 mg capsule 81 mg PO DAILY #30 caps 02/03/23 04/17/23 Rx levothyroxine 112 mcg capsule 112 mcg PO DAILY 02/08/23 04/17/23 History (Tirosint) metoprolol succinate 50 mg 50 mg PO PM #90 tabs 02/27/23 04/17/23 Rx tablet,extended release 24 hr rosuvastatin 20 mg tablet (Crestor) 20 mg PO DAILY #90 tabs 02/27/23 04/17/23 Rx clopidogrel 75 mg tablet 75 mg PO DAILY #90 tabs 03/09/23 04/17/23 Rx lisinopril 5 mg tablet 5 mg PO DAILY #90 tabs 03/09/23 04/17/23 Rx Tirosint 112 mcg capsule 112 mcg PO DAILY #90 caps 04/26/23 Rx (levothyroxine) diclofenac sodium 1 % topical gel 4 g EXT QID #100 grams 06/07/23 Rx (Voltaren Arthritis Pain) nitroglycerin 0.4 mg sublingual 0.4 mg sublingual Q5M PRN chest 06/07/23 Rx tablet (Nitrostat) pain #14 tabs pantoprazole 40 mg tablet,delayed 40 mg PO BID 30 days #60 tabs 06/07/23 Rx release pregabalin 25 mg capsule 25 mg PO DAILY #30 caps 06/07/23 Rx Allergies Allergy/AdvReac Type Severity Reaction Status Date / Time Penicillins Allergy Unknown HAPPENED Unverified 04/17/23 10:56 CHILD - PT DOESN'T REMEMBER fluoxetine Allergy Verified 04/17/23 10:56 sertraline Allergy Verified 04/17/23 10:56 atorvastatin AdvReac Intermediate Muscle Pain Verified 04/17/23 10:56 Past Med/Surg History Medical History Chronic constipation GERD (gastroesophageal reflux disease) Goiter Raj's thyroiditis Hyperlipidemia Hypertension Hypothyroidism Left-sided chest pain Osteoarthritis Tobacco dependence Surgical History History of cholecystectomy 2020 History of colonoscopy (~2017) W/ POLYPECTOMY History of esophagogastroduodenoscopy (EGD) History of tooth extraction Status post excision of lipoma CHEST - A CHILD Family History Grandmother (Maternal) Family history of diabetes mellitus Uncle Family history of diabetes mellitus Denies family history of Ovarian cancer Prostate cancer Myocardial infarction Breast cancer Colorectal cancer Social History Smoking Status: Current every day smoker Tobacco Type: Cigarettes packs per day: 1; Cigarettes Per Day: 20; Second Hand Exposure: Yes; Do You Dip or Chew Tobacco: Yes (a few chews/day); Hx Alcohol Use: Yes Alcohol type: hard liquor Alcohol Intake Frequency: Monthly or Less Hx Substance Use: No Preferred Language: Indonesian Communication Ability: Effective Visual Impairment: No Limitations Hearing Ability: Normal Batch Room Technician Required: No Beliefs That Will Affect Care: None marital status: Current Living Situation: Spouse Current Living Situation Comment: current occupational status: employed current occupation: [employer] Other Information That Helps Us Care for You: No Feels Safe at Home: Yes Safety Concerns: Feels Safe At This Time Diet: regular Diet Comment: Regular caffeine: Yes during the past year weight has: remained stable Dental Care, Regularly: No Physical Activity Frequency: Daily Seatbelt Use: always Sunscreen Use: No Assistive Devices: None Review of Systems A total of 10 systems reviewed and were otherwise negative Physical Exam Vital Signs Vital Signs - 24 hr 06/06/23 23:00 Pulse Rate [Bilateral] 64 Respiratory Rate 18 Blood Pressure [Left Arm] 121/77 Blood Pressure Mean [Left Arm] 91 Pulse Oximetry 99 VITALS: Vitals are noted on the nurse's note and reviewed by myself. Vital signs stable. GENERAL: Well-developed, well-nourished, white male, who is in no acute distress and resting comfortably. Patient is cooperative with the examination. HEAD: Normocephalic atraumatic. EARS: External ear normal. External auditory canals clear, tympanic membranes pearly thurman without erythema or effusion bilaterally. EYES: Pupils equal round and reactive to light and accommodation. Conjunctivae without injection, sclerae without icterus. Extraocular movements intact. NOSE: Patent, turbinates without inflammation or discharge. MOUTH: Mucous membranes moist. Tonsils are not enlarged. Pharynx without erythema, blood, or exudate. Uvula midline. Airway patent. NECK: Supple without nuchal rigidity. No lymphadenopathy. No thyromegaly. Cervical spine is nontender. HEART: Regular rate and rhythm without murmurs gallops or rubs. LUNGS: Clear to auscultation bilaterally without wheezes, rales or rhonchi. No retractions or accessory muscle use. Course Administered Medications Discontinued Medications Al Hydrox/Mg Hydrox/Simethicone (Aluminum/Magnesium Susp 30 Ml Udc) 15 ml PO NOW STA Stop: 06/07/23 13:41 Last Admin: 06/07/23 15:10 Dose: 15 ml Documented By: MARGIE Aspirin (Aspirin 81 Mg Chew) 324 mg PO NOW STA Stop: 06/06/23 23:03 Last Admin: 06/06/23 23:56 Dose: 324 mg Documented By: TENISHA Aspirin (Aspirin 81 Mg Ectab) 81 mg PO DAILY [facility] Stop: 07/07/23 08:59 Last Admin: 06/07/23 08:26 Dose: 81 mg Documented By: MARGIE Clopidogrel Bisulfate (Clopidogrel Bisulfate 75 Mg Tab) 75 mg PO DAILY [facility] Stop: 07/07/23 08:59 Last Admin: 06/07/23 08:26 Dose: 75 mg Documented By: MARGIE Diclofenac Sodium (Diclofenac Sod 1% Gel 100 Gm Tube) 4 gm EXT QID [facility]; Protocol Stop: 07/07/23 16:59 Last Admin: 06/07/23 14:40 Dose: 4 gm Documented By: MARGIE Levothyroxine Sodium (Levothyroxine Sodium 112 Mcg Tablet) 112 mcg PO DAILYBB [facility] Stop: 07/07/23 06:29 Last Admin: 06/07/23 06:14 Dose: 112 mcg Documented By: SARKIS Lisinopril (Lisinopril 5 Mg Tab) 5 mg PO DAILY [facility] Stop: 07/07/23 08:59 Last Admin: 06/07/23 08:26 Dose: 5 mg Documented By: MARGIE Nitroglycerin (Nitroglycerin 2% Ointment 30gm Tube) 1 inch EXT NOW ONE Stop: 06/06/23 23:03 Last Admin: 06/06/23 23:56 Dose: 1 inch Documented By: TENISHA Pantoprazole Sodium (Pantoprazole 40 Mg Tab) 40 mg PO QAM [facility] Stop: 07/07/23 08:59 Last Admin: 06/07/23 08:27 Dose: 40 mg Documented By: MARGIE Pregabalin (Pregabalin 50 Mg Cap) 50 mg PO BID [facility] Stop: 07/07/23 13:39 Last Admin: 06/07/23 14:39 Dose: 50 mg Documented By: MARGIE Rosuvastatin Calcium (Rosuvastatin Calcium 20 Mg Tab) 20 mg PO DAILY [facility] Stop: 07/07/23 08:59 Last Admin: 06/07/23 08:27 Dose: 20 mg Documented By: MARGIE Medical Decision Making Differential Diagnosis Differential diagnosis includes, but is not limited to: Myocardial infarction, dysrhythmia, pericarditis, pneumothorax, aortic aneurysm/dissection, DVT/PE, anxiety, GERD, PUD, electrolyte imbalance, thyroid disorder, pneumonia, bronchitis, pancreatitis, and others Laboratory Data 06/06/23 21:12 06/06/23 21:12 Lab Results 06/06/23 06/06/23 06/07/23 Range/Units 21:12 21:12 00:00 WBC 6.92 (4.8-10.8) K/ul RBC 5.06 (4.70-6.10) M/uL Hgb 15.6 (14.0-18.0) g/dl Hct 44.3 (42.0-52.0) % MCV 87.5 (80.0-100.0) fL MCH 30.8 (25.0-34.0) pg MCHC 35.2 (32.0-36.0) g/dL RDW Std Deviation 42.1 (36.4-46.3) fL RDW Coeff of Desmond 13.2 (11.5-14.5) % Plt Count 185 (130-400) K/uL MPV 11.3 (9.4-12.4) fL Immature Gran % (Auto) 0.1 % Neut % (Auto) 61.1 % Lymph % (Auto) 30.3 % [place] % (Auto) 5.1 % Eos % (Auto) 2.7 % Baso % (Auto) 0.7 % Neut # (Auto) 4.22 (1.40-6.50) K/uL Lymph # (Auto) 2.10 (1.2-3.4) K/uL [place] # (Auto) 0.35 (0.11-0.59) K/uL Eos # (Auto) 0.19 (0-0.50) K/uL Baso # (Auto) 0.05 (0-0.2) K/uL Immature Gran # (Auto) 0.01 (0.01-0.20) K/uL Sodium 137 (136-145) mmol/L Potassium 4.0 (3.5-5.1) mmol/L Chloride 106 (98-107) mmol/L Carbon Dioxide 25 (21-32) mmol/L Anion Gap 6 (3-11) BUN 16 (6-23) mg/dl Creatinine 1.16 (0.6-1.4) mg/dl Est Cr Clr Drug Dosing 85.1 ml/min Est GFR ( Amer) 84.0 ml/min Est GFR (Non-Af Amer) 72.5 ml/min BUN/Creatinine Ratio 13.8 (10-20) Glucose 136 H (70-99(Fasting)) mg/dl Calcium 9.2 (8.6-10.3) mg/dl Total Bilirubin 0.5 (0.2-1.0) mg/dl AST 20 (13-39) U/L ALT 29 (7-52) U/L Alkaline Phosphatase 77 (34-104) U/L Troponin I High Sens 11.0 (0-20) pg/ml Total Protein 7.5 (6.0-8.3) gm/dl Albumin 4.9 (3.4-5.0) gm/dl Globulin 2.6 (2.5-4.0) gm/dl Albumin/Globulin Ratio 1.9 (0.9-2) Lipase 17 (11-82) U/L SARS-CoV-2 (PCR) NEGATIVE (Negative) ECG Data Attestation: I personally reviewed and interpreted this ECG as follows: Indication: + chest pain Additional Comments: Normal sinus rhythm @61 bpm Normal ECG When compared with ECG of 08-FEB-2023 12:31, T wave inversion no longer evident in Anterolateral leads MDM Narrative Physical exam and history were performed. Nursing notes, EMR, and Medication List were personally reviewed. No social concerns were identified as barriers to patients care. Patient appears to have chest pain bringing him to the ER. He does have recent history of IA and is being followed by cardiology. He is taking his medications as prescribed. IV access was established and labs were obtained. Patient was given 324 mg aspirin as well as 1 inch of Nitropaste. An order was placed for continuous cardiac monitoring. The monitor shows a rate of 72 with normal sinus rhythm. Patient's blood work is as above and was reviewed. He does not have a significantly elevated white blood cell count, gross anemia, bandemia, or significant electrolyte imbalance. Glucose is 136. Lipase and transaminases are not diagnostic. Troponin x1 is negative. Chest x-ray was reviewed by myself and radiology showing no acute process. On reevaluation the patient had dramatic improvement of pain after nitroglycerin paste. There is concern that his symptoms may represent an anginal equivalent. Case was discussed with the on-call hospitalist team who agreed to evaluate the patient here in the ER for further care. Please see their dictation for further patient course, plan, and disposition. The chart was completed utilizing 2U Speech Voice Recognition Software. Grammatical errors, random word insertions, pronoun errors, and incomplete sentences are an occasional consequence of this system due to software limitations, ambient noise, and hardware issues. Any formal questions or con cerns about the content, text, or information contained within the body of this dictation should be directly addressed to the provider for clarification. . Impression & Plan Atypical chest pain, CAD (coronary artery disease) Discharge Plan Visit Data Chief Complaint: Chest Pain Stated Complaint: CHEST/ARM PAIN,SICK EARLIER ED Provider: Wen Montanez ED Midlevel Provider: Donnell Alvarado Discharge Problem: Atypical chest pain, CAD (coronary artery disease) Patient Disposition: Admitted As Inpatient Discharge Instructions Interventions: ED Discharge Assessment Last Done: 06/07/23 01:57
--- NOTE | 2023-06-07 00:35 | History & Physical Report ---
Date of Service June 07, 2023 Assessment & Plan (1) Chest pain: Plan: 52yo male with history of CAD s/p NSTEMI with DIANA placement to LAD in January 2023, non-obstructive disease in ostial RCA (30%) and mid-RCA (30%) presenting with chest pain. Pain is resolved with Nitroglycerine. Initial troponin within normal limits at 11. EKG with no acute ischemic changes. Story and workup thus far favor non-cardiac origin, possible GI. -Observation to medical with telemetry -Trend troponin -Continue ASA, Plavix -Continue Metoprolol -Continue Lisinopril -Continue Crestor -Nitro PRN -EKG with chest pain as needed -Maalox PRN -Continue Protonix -Consider Cardiology consult pending results of troponin (2) CAD (coronary artery disease): Plan: Patient with DIANA in LAD presenting with chest pain as above. Troponin x 1 is within normal limits - pain ongoing x 24 hours -Continue ASA, Plavix, Metoprolol, Lisinopril and Crestor (3) Hyperlipidemia: Plan: Chronic. Stable -Continue Crestor (4) Hypothyroidism: Plan: Chronic. Stable -Continue Synthroid (5) GERD (gastroesophageal reflux disease): Plan: Possible etiology for symptoms -Maalox as needed -Continue Protonix (6) Hypertension: Plan: Blood pressure stable -Continue Metoprolol, Lisinopril -Monitor History of Present Illness Chief Complaint: chest pain Primary Care Provider: JERRICA Howard Amanda Krishnamurthy is a 52yo male with history of CAD s/p NSTEMI with DIANA placed to LAD in January 2023 (also with 30% ostial and 30% mid-RCA), HTN, HLP and Hypothyroidism presenting with 1 day of chest discomfort. Patient describes several different types of pain. The first is located in the sub-sternal, left chest, sharp pressure 10/10 in severity. This pain is worse with positional changes and movement. It is non-pleuritic and non-exertional. He also mid-epigastric discomfort and left shoulder pain. He reports his left jaw has been hurting as well. Patient came to the ER tonight because the pain in his chest was more severe. He had some dizziness and nausea as well. Denies palpitations or SOB. Patient denies trauma or over-use. He has been compliant with his medications. Follows with Cardiology - last seen on 04/17/23 - complained of fatigue at that time. His Brillinta was changed to Plavix and he was instructed to take his Toprol XL at night. Otherwise, he denies exertional symptoms. He had and exercise stress test 03/28/23 which was negative for inducible ischemia. Patient was given a Nitro paste in the ER with resolution of his left sided chest pain ER Course: ASA 324mg Nitro paste 1 inch Allergies Allergy/AdvReac Type Severity Reaction Status Date / Time Penicillins Allergy Unknown HAPPENED Unverified 04/17/23 10:56 CHILD - PT DOESN'T REMEMBER fluoxetine Allergy Verified 04/17/23 10:56 sertraline Allergy Verified 04/17/23 10:56 atorvastatin AdvReac Intermediate Muscle Pain Verified 04/17/23 10:56 Home Medications Medication Instructions Recorded Confirmed Type aspirin 81 mg capsule 81 mg PO DAILY #30 caps 02/03/23 04/17/23 Rx levothyroxine 112 mcg capsule 112 mcg PO DAILY 02/08/23 04/17/23 History (Tirosint) metoprolol succinate 50 mg 50 mg PO PM #90 tabs 02/27/23 04/17/23 Rx tablet,extended release 24 hr rosuvastatin 20 mg tablet (Crestor) 20 mg PO DAILY #90 tabs 02/27/23 04/17/23 Rx clopidogrel 75 mg tablet 75 mg PO DAILY #90 tabs 03/09/23 04/17/23 Rx lisinopril 5 mg tablet 5 mg PO DAILY #90 tabs 03/09/23 04/17/23 Rx Tirosint 112 mcg capsule 112 mcg PO DAILY #90 caps 04/26/23 Rx (levothyroxine) pantoprazole 40 mg tablet,delayed 40 mg PO QAM #90 tabs 05/24/23 Rx release Past Med/Surg History Medical History Chronic constipation GERD (gastroesophageal reflux disease) Goiter Raj's thyroiditis Hyperlipidemia Hypertension Hypothyroidism Left-sided chest pain Osteoarthritis Tobacco dependence Surgical History History of cholecystectomy 2020 History of colonoscopy (~2016) W/ POLYPECTOMY History of esophagogastroduodenoscopy (EGD) History of tooth extraction Status post excision of lipoma CHEST - A CHILD Family History Grandmother (Maternal) Family history of diabetes mellitus Uncle Family history of diabetes mellitus Denies family history of Ovarian cancer Prostate cancer Myocardial infarction Breast cancer Colorectal cancer Social History Smoking Status: Current every day smoker Tobacco Type: Cigarettes packs per day: 1; Cigarettes Per Day: 20; Second Hand Exposure: Yes; Do You Dip or Chew Tobacco: Yes (a few chews/day); Hx Alcohol Use: Yes Alcohol type: hard liquor Alcohol Intake Frequency: Monthly or Less Hx Substance Use: No Preferred Language: Northern Irish Communication Ability: Effective Visual Impairment: No Limitations Hearing Ability: Normal Formal Waiter/Waitress Required: No Beliefs That Will Affect Care: None marital status: Current Living Situation: Spouse Current Living Situation Comment: current occupational status: employed current occupation: [employer] Other Information That Helps Us Care for You: No Feels Safe at Home: Yes Safety Concerns: Feels Safe At This Time Diet: regular Diet Comment: Regular caffeine: Yes during the past year weight has: remained stable Dental Care, Regularly: No Physical Activity Frequency: Daily Seatbelt Use: always Sunscreen Use: No Assistive Devices: Denture - Upper and Denture - Lower Review of Systems Review of Systems: All systems reviewed & are unremarkable except as noted in HPI & below Physical Exam Physical Exam: General: patient resting comfortably, NAD, non-toxic in appearance, AA&O x 4 Skin: warm, dry, intact, no rashes or lesions HEENT: NC/AT, PERRL, EOMI, anicteric sclera, conjunctiva without injection, external ear normal to inspection and nontender, nares patent, moist mucus membranes, dentition intact, no oropharyngeal lesions, neck supple, trachea midline, no LAD, no thyromegaly, no JVD Heart: +S1/S2, regular, no m/r/g, no reproducible chest wall pain or shoulder pain Lungs: equal air entry bilaterally, no rales/rhonchi/wheezes Abd: +BS, soft, some epigastric tenderness with palpation, ND, no masses/organomegaly/ascites Ext: warm, 2+ pulses in UE/LE bilaterally, no clubbing/cyanosis or edema Neuro: nonfocal, patient AA&O x 4, speech intact, no facial droop, moving all extremities on command with equal strength 5/5 Results & Data Results & Data Vital Signs (Past 12 Hours) Vital Signs Temp Pulse Pulse Resp BP BP Pulse Ox 06/06/23 23:00 64 18 121/77 99 06/06/23 21:27 76 06/06/23 21:36 96 06/06/23 21:32 70 20 144/81 H 96 06/06/23 21:02 36.2 C L 71 18 154/78 H 98 O2 Del Method 06/06/23 23:00 06/06/23 21:27 06/06/23 21:36 Room Air 06/06/23 21:32 06/06/23 21:02 Room Air Laboratory Results Laboratory Results WBC 6.92 K/ul (4.8-10.8) 06/06/23 21:12 RBC 5.06 M/uL (4.70-6.10) 06/06/23 21:12 Hgb 15.6 g/dl (14.0-18.0) 06/06/23 21:12 Hct 44.3 % (42.0-52.0) 06/06/23 21:12 MCV 87.5 fL (80.0-100.0) 06/06/23 21:12 MCH 30.8 pg (25.0-34.0) 06/06/23 21:12 MCHC 35.2 g/dL (32.0-36.0) 06/06/23 21:12 RDW Std Deviation 42.1 fL (36.4-46.3) 06/06/23 21:12 RDW Coeff of Desmond 13.2 % (11.5-14.5) 06/06/23 21:12 Plt Count 185 K/uL (130-400) 06/06/23 21:12 MPV 11.3 fL (9.4-12.4) 06/06/23 21:12 Immature Gran % (Auto) 0.1 % 06/06/23 21:12 Neut % (Auto) 61.1 % 06/06/23 21:12 Lymph % (Auto) 30.3 % 06/06/23 21:12 [place] % (Auto) 5.1 % 06/06/23 21:12 Eos % (Auto) 2.7 % 06/06/23 21:12 Baso % (Auto) 0.7 % 06/06/23 21:12 Neut # (Auto) 4.22 K/uL (1.40-6.50) 06/06/23 21:12 Lymph # (Auto) 2.10 K/uL (1.2-3.4) 06/06/23 21:12 [place] # (Auto) 0.35 K/uL (0.11-0.59) 06/06/23 21:12 Eos # (Auto) 0.19 K/uL (0-0.50) 06/06/23 21:12 Baso # (Auto) 0.05 K/uL (0-0.2) 06/06/23 21:12 Immature Gran # (Auto) 0.01 K/uL (0.01-0.20) 06/06/23 21:12 Sodium 137 mmol/L (136-145) 06/06/23 21:12 Potassium 4.0 mmol/L (3.5-5.1) 06/06/23 21:12 Chloride 106 mmol/L (98-107) 06/06/23 21:12 Carbon Dioxide 25 mmol/L (21-32) 06/06/23 21:12 Anion Gap 6 (3-11) 06/06/23 21:12 BUN 16 mg/dl (6-23) 06/06/23 21:12 Creatinine 1.16 mg/dl (0.6-1.4) 06/06/23 21:12 Est Cr Clr Drug Dosing 85.1 ml/min 06/06/23 21:12 Est GFR ( Amer) 84.0 ml/min 06/06/23 21:12 Est GFR (Non-Af Amer) 72.5 ml/min 06/06/23 21:12 BUN/Creatinine Ratio 13.8 (10-20) 06/06/23 21:12 Glucose 136 mg/dl (70-99(Fasting)) H 06/06/23 21:12 Calcium 9.2 mg/dl (8.6-10.3) 06/06/23 21:12 Total Bilirubin 0.5 mg/dl (0.2-1.0) 06/06/23 21:12 AST 20 U/L (13-39) 06/06/23 21:12 ALT 29 U/L (7-52) 06/06/23 21:12 Alkaline Phosphatase 77 U/L (34-104) 06/06/23 21:12 Troponin I High Sens 11.0 pg/ml (0-20) 06/06/23 21:12 Total Protein 7.5 gm/dl (6.0-8.3) 06/06/23 21:12 Albumin 4.9 gm/dl (3.4-5.0) 06/06/23 21:12 Globulin 2.6 gm/dl (2.5-4.0) 06/06/23 21:12 Albumin/Globulin Ratio 1.9 (0.9-2) 06/06/23 21:12 Lipase 17 U/L (11-82) 06/06/23 21:12 SARS-CoV-2 (PCR) NEGATIVE (Negative) 06/07/23 00:00 ECG Additional Comments: EKG with NSR at 61bpm, normal axis, DD=292, QRS=84, VIc=004 PG Care Time/CCT Total # of Minutes Spent Total Time Spent with Patient: Total time spent is greater than 50% in coordination of care (as documented) at patient's floor/unit and/or counseling patient: Coding Level of Care Code 65333 INT INP/OBS CARE 2/55MIN Diagnoses Chest pain R07.9 CAD (coronary artery disease) I25.10 Hyperlipidemia E78.5 Hypothyroidism E03.9 GERD (gastroesophageal reflux disease) K21.9 Hypertension I10
[2023-06-07] MEDS ORDERED: ALUMINUM/MAGNESIUM SUSP 30 ML UDC PO PRN (01:55)
[2023-06-07] MEDS ORDERED: ONDANSETRON INJ 2 MG/ML 2 ML VIAL IV PRN (01:55)
[2023-06-07] MEDS ORDERED: ACETAMINOPHEN 325 MG TAB PO PRN (01:55)
[2023-06-07] MEDS ORDERED: NITROGLYCERIN SL 0.4 MG/TAB TAB SL PRN (01:55)
[2023-06-07] MEDS ORDERED: LEVOTHYROXINE SODIUM 112 MCG TABLET PO SCH (06:30)
--- NOTE | 2023-06-07 08:00 | XRay Report ---
XR chest 1V portable CLINICAL HISTORY: Chest pain, nonspecific TECHNIQUE: Single frontal radiograph of the chest was obtained. Comparison: Comparison is made to chest radiograph 02/08/2023 FINDINGS: No lines and tubes are seen. The cardiomediastinal silhouette is normal. The lungs are clear. No evid ence of pleural effusion or pneumothorax. IMPRESSION: No acute chest disease. ACT 112: Negative or not required by law. Electronically signed by: Timmy Campos M.D. 06/07/2023 7:57 AM
--- NOTE | 2023-06-07 08:18 | Hospitalist Progress Note ---
Date of Service June 07, 2023 Assessment & Plan (1) Chest pain: Plan: 52yo male with history of CAD s/p NSTEMI with DIANA placement to LAD in January 2023, non-obstructive disease in ostial RCA (30%) and mid-RCA (30%) presenting with chest pain. Pain is resolved with Nitroglycerine. Initial troponin within normal limits at 11. EKG with no acute ischemic changes. Story and workup thus far favor non-cardiac origin, possible GI. -Observation to medical with telemetry -Trend troponin -Continue ASA, Plavix -Continue Metoprolol -Continue Lisinopril -Continue Crestor -Nitro PRN -EKG with chest pain as needed -Maalox PRN -Continue Protonix -Consider Cardiology consult pending results of troponin (2) CAD (coronary artery disease): Plan: Patient with DIANA in LAD presenting with chest pain as above. Troponin x 1 is within normal limits - pain ongoing x 24 hours -Continue ASA, Plavix, Metoprolol, Lisinopril and Crestor (3) Hyperlipidemia: Plan: Chronic. Stable -Continue Crestor (4) Hypothyroidism: Plan: Chronic. Stable -Continue Synthroid (5) GERD (gastroesophageal reflux disease): Plan: Possible etiology for symptoms -Maalox as needed -Continue Protonix (6) Hypertension: Plan: Blood pressure stable -Continue Metoprolol, Lisinopril -Monitor Admission and Anticipated Discharge Date Admission Date: June 07, 2023 Subjective BRIDGE NOTE: ADMIT AFTER MIDNIGHT Eval this afternoon, no further CP like what brought him in but has some LEFT shoulder/pain to armpit area as well as some tingling on the outside of his arm. Discussed/review prior imaging neck -- hx rotator cuff issues. He has hx cervical spinal stenosis issues. Reports had been chopping wood all weekend, which is not new for him. Prior on gabapentin but made him goofy. Discussed trial lyrica and if effective can continue/trial as outpatient. 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 Is a smoker. Discussed cessation. Reports he did have epigastric discomfort, hx gallbladder surgery/hernia. Discussed possible strangulated hernia in the future however if able to press/reduce can continue to follow but possible this may be problematic in the future. Reports GI cocktail effective in past. currently on plavix. Reports ibuprofen use for shoulder without significant improvement, likely from nerve component. Also discussed if effective GI cocktail to see about increasing his PPI to BID. Also could consider amlodipine if BP allowed. Patient would like dc and outpt f/u if possible this evening. Third troponin pending. Results & Data Results & Data Vital Signs (Past 12 Hours) Vital Signs Temp Pulse Pulse Resp BP BP Pulse Ox 06/07/23 06:16 88 06/07/23 02:20 68 06/07/23 02:12 06/07/23 02:12 06/07/23 02:11 36.5 C 58 L 18 116/68 96 06/07/23 01:57 64 18 97/79 L 18 L 06/07/23 01:00 65 18 112/70 96 06/07/23 01:27 63 06/06/23 23:00 64 18 121/77 99 06/06/23 21:27 76 06/06/23 21:36 96 06/06/23 21:32 70 20 144/81 H 96 06/06/23 21:02 36.2 C L 71 18 154/78 H 98 O2 Del Method 06/07/23 06:16 06/07/23 02:20 06/07/23 02:12 Room Air 06/07/23 02:12 Room Air 06/07/23 02:11 Room Air 06/07/23 01:57 Room Air 06/07/23 01:00 06/07/23 01:27 06/06/23 23:00 06/06/23 21:27 06/06/23 21:36 Room Air 06/06/23 21:32 06/06/23 21:02 Room Air PG Care Time/CCT Total # of Minutes Spent Total Time Spent with Patient: Total time spent is greater than 50% in coordination of care (as documented) at patient's floor/unit and/or counseling patient: Coding Diagnoses Chest pain R07.9 CAD (coronary artery disease) I25.10 Hyperlipidemia E78.5 Hypothyroidism E03.9 GERD (gastroesophageal reflux disease) K21.9 Hypertension I10
[2023-06-07] MEDS ORDERED: CLOPIDOGREL BISULFATE 75 MG TAB PO SCH (09:00)
[2023-06-07] MEDS ORDERED: PANTOprazole 40 MG TAB PO SCH (09:00)
[2023-06-07] MEDS ORDERED: ROSUVASTATIN CALCIUM 20 MG TAB PO SCH (09:00)
[2023-06-07] MEDS ORDERED: lisinopril 5 MG TAB PO SCH (09:00)
[2023-06-07] MEDS ORDERED: ASPIRIN 81 MG ECTAB PO SCH (09:00)
[2023-06-07] MEDS ORDERED: PREGABALIN 50 MG CAP PO SCH (13:40)
[2023-06-07] MEDS ORDERED: ALUMINUM/MAGNESIUM SUSP 30 ML UDC PO STA (13:40)
--- NOTE | 2023-06-07 14:13 | Electrocardiogram Report ---
Test Reason : Blood Pressure : / mmHG Vent. Rate : 061 BPM Atrial Rate : 061 BPM P-R Int : 180 ms QRS Dur : 084 ms QT Int : 402 ms P-R-T Axes : 067 068 064 degrees QTc Int : 404 ms Normal sinus rhythm Normal ECG When compared with ECG of 08-FEB-2023 12:31, T wave inversion no longer evident in Anterolateral leads Confirmed by Yonny José ([id number]) on 06/07/2023 2:13:07 PM Referred By: REFERRED SELF Confirmed By:Andraes José
--- NOTE | 2023-06-07 14:15 | Electrocardiogram Report ---
Test Reason : Blood Pressure : / mmHG Vent. Rate : 063 BPM Atrial Rate : 063 BPM P-R Int : 176 ms QRS Dur : 084 ms QT Int : 416 ms P-R-T Axes : 067 063 059 degrees QTc Int : 425 ms Normal sinus rhythm Normal ECG When compared with ECG of 06-JUN-2023 21:11, (unconfirmed) No significant change was found Confirmed by Yonny José ([id number]) on 06/07/2023 2:14:44 PM Referred By: REFERRED SELF Confirmed By:Andreas José
--- NOTE | 2023-06-07 14:48 | Discharge Summary ---
Date of Service June 07, 2023 Admission HPI Per Admitting Provider Amanda Krishnamurthy is a 52yo male with history of CAD s/p NSTEMI with DIANA placed to LAD in January 2023 (also with 30% ostial and 30% mid-RCA), HTN, HLP and Hypothyroidism presenting with 1 day of chest discomfort. Patient describes several different types of pain. The first is located in the sub-sternal, left chest, sharp pressure 10/10 in severity. This pain is worse with positional changes and movement. It is non-pleuritic and non-exertional. He also mid-epigastric discomfort and left shoulder pain. He reports his left jaw has been hurting as well. Patient came to the ER tonight because the pain in his chest was more severe. He had some dizziness and nausea as well. Denies palpitations or SOB. Patient denies trauma or over-use. He has been compliant with his medications. Follows with Cardiology - last seen on 04/17/23 - complained of fatigue at that time. His Brillinta was changed to Plavix and he was instructed to take his Toprol XL at night. Otherwise, he denies exertional symptoms. He had and exercise stress test 03/28/23 which was negative for inducible ischemia. Patient was given a Nitro paste in the ER with resolution of his left sided chest pain ER Course: ASA 324mg Nitro paste 1 inch Admission Exam Per Admitting Provider General: patient resting comfortably, NAD, non-toxic in appearance, AA&O x 4 Skin: warm, dry, intact, no rashes or lesions HEENT: NC/AT, PERRL, EOMI, anicteric sclera, conjunctiva without injection, external ear normal to inspection and nontender, nares patent, moist mucus membranes, dentition intact, no oropharyngeal lesions, neck supple, trachea midline, no LAD, no thyromegaly, no JVD Heart: +S1/S2, regular, no m/r/g, no reproducible chest wall pain or shoulder pain Lungs: equal air entry bilaterally, no rales/rhonchi/wheezes Abd: +BS, soft, some epigastric tenderness with palpation, ND, no masses/organomegaly/ascites Ext: warm, 2+ pulses in UE/LE bilaterally, no clubbing/cyanosis or edema Neuro: nonfocal, patient AA&O x 4, speech intact, no facial droop, moving all extremities on command with equal strength 5/5 Principal Diagnosis Chest Pain Discharge Exam General: WD/WN male sitting up in bed, at bedside, NAD, wanting to go home HEENT: head normocephalic, atraumatic, pupils equal in size, mmm, trachea midline Resp: no tachypnea, no cough, no w/c/r, on room air CV: regular rate/rhythm, no significant m/r/g, no pitting edema/calf tenderness GI: +BS, soft/NT, prior surgical scars well healed. possible small abdominal wall defect to superior prior incision, no bowel appreciated or current herniation, no guarding/rigidity : no vaughan MSK/Neuro: mild discomfort with LUE/shoulder with extension, slight decreased strength. slightly decreased ROM LUE with abduction above level of the shoulder reports occasional burning like sensation to lateral left arm no pronator drift, slight decrease sensation to light touch slight tenderness to palpation pectoris muscles on the left, no lesion/rashes Skin: warm, perfused, no obvious lesions/rashes, no evidence for shingles rash or other at present Psych: alert/oriented x 3, cooperative with exam and wanting to go home. declined staying overnight Discharge Data Allergies Allergy/AdvReac Type Severity Reaction Status Date / Time Penicillins Allergy Unknown HAPPENED Unverified 04/17/23 10:56 CHILD - PT DOESN'T REMEMBER fluoxetine Allergy Verified 04/17/23 10:56 sertraline Allergy Verified 04/17/23 10:56 atorvastatin AdvReac Intermediate Muscle Pain Verified 04/17/23 10:56 Consultations 06/07/23 00:26 ED Decision to Admit Stat Ordered Studies Chest X-Ray 06/06/23 21:07 XR chest 1V portable CLINICAL HISTORY: Chest pain, nonspecific TECHNIQUE: Single frontal radiograph of the chest was obtained. Comparison: Comparison is made to chest radiograph 02/08/2023 FINDINGS: No lines and tubes are seen. The cardiomediastinal silhouette is normal. The lungs are clear. No evidence of pleural effusion or pneumothorax. IMPRESSION: No acute chest disease. ACT 112: Negative or not required by law. Electronically signed by: Timmy Campos M.D. 06/07/2023 7:57 AM Hospital Course (1) Chest pain: 52yo male with history of CAD s/p NSTEMI with DIANA placement to LAD in January 2023, non-obstructive disease in ostial RCA (30%) and mid-RCA (30%) presenting with chest pain. Pain is resolved with Nitroglycerine. Initial troponin within normal limits at 11. EKG with no acute ischemic changes. Story and workup favor non-cardiac origin, possible GI vs MSK Troponin levels checked -- 11, 11.7, 12.8, 10.3 EKG w/o ischemic changes. Recent stress testing negative in March Continued on ASA/Plavix, metoprolol, lisinopril and crestor given recent NSTEMI w/ DIANA to LAD in January Nitro paste given w/ reported improvement but still reported pain to me/unchanged during examination, suggesting more GI etiology and reported prior improvement in symtpoms w/ GI cocktail --Minimal change w/o the lidocaine as not currently available. Discussed possible amlodipine to BP regimen for esophageal spasm as possibilty. Does have reflux, on PPI once daily. 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 Some aspects of pain are directly reproducible to palpation on exam, leaning more towards MSK component/strain type injury, however does have some decreased sensation/radiculopathy type symptoms on the left arm and some neck discomfort/pins/needles sensation however NO meningeal signs/fevers reported Discussed prior MRI cervical spine w/ disease noted and likely worsened over past 4 years along with smoking, occupation, wood cutting at home and could consider repeat MRI cervical spine as outpatient. Discussed pain control with patient -- topical voltaren utilized and can continue. He had been on gabapentin in the past but made him feel funny. Trial lyrica 50mg but thought to high. Rx sent for 25mg and can f/u PCP Consideration for referral to PT/OT outpatient, however given active job I don't suspect that would help. Can consider outpt referral to pain management vs trial low dose opiates. Wanting to avoid NSAIDs given recent NSTEMI/CAD and ASA/Plavix use at present (had been using ibuprofen at home, PPI increased to BID at dc for gastritis type symptoms as well) I also discussed possible f/u Dr Irwin/ortho spine with patient and his in the future if non-operative management ineffective for consideration possible ACDF pending repeat imaging of spine which can be done w/ PCP in follow up but recommended he wait at least one year from NH/DIANA (2) CAD (coronary artery disease): Patient with DIANA in LAD presenting with chest pain as above. Troponin without significant elevation and had been occuring for >24hr prior to presentation Continued ASA, Plavix, Metoprolol, Lisinopril and Crestor Outpt f/u [facility] (3) Hyperlipidemia: Chronic.continued on crestor (4) Hypothyroidism: Chronic. Stable and continued on synthroid (5) GERD (gastroesophageal reflux disease): Possible etiology for symptoms, maalox as needed, increased PPI to BID at d/c Discussed to avoid NSAIDs as he had been taking ibuprofen while on asa/plavix. hgb stable w/o bleeding reported Can consider referral to GI for EGD if ongoing issues (age 52 and would be due for screening c-scope if not already done as well) (6) Hypertension: Blood pressure stable -Continue Metoprolol, Lisinopril -Monitor Plan Recs: - f/u Ramirezp Keshia from cardiology for ongoing management. Continue DAPT w/ ASA and Plavix in meantime as well as his metoprolol, lisinopril, crestor. Smoking cessation encouraged - PPI increased to BID, consider amlodipine for esophageal spasms if not effective/BP allows - f/u PCP for cervical spine imaging as I do suspect given coming/going nature even at rest (without significant trop elevation) in setting of no recent trauma/falls, however he had been chopping wood all weekend and could have exacerbated his issues in his cervical spine. ROM intact, possible slightly decreased on the left however reporting chronic rotator cuff issues. He is experienced truck driver/mail delivery supervisor and also suspect given reproducible nature to some aspects on arm/axillae from MSK injury/use injury and can consider referral to [facility] as outpatient for shoulder issues that are chronic, but also for Dr Irwin vs other ortho spine for consideration further imaging/eventual need for ACDF in the future Rx Lyrica for nerve type pain 25mg daily (decreased to 25mg as 50mg made him feel funny and issues w/ gabapentin in the past) Total Time Total Time Spent Total Time Spent (In Minutes): 60 Discharge Plan Discharge Items Patient Disposition: Home - Self-Care Reason For Visit: CHEST PAIN Discharge Diagnosis: Chest Pain Goals: You have been hospitalized for an acute medical problem. During your stay at [facility], we have made an effort to correct the problem that brought you to the hospital while keeping you as comfortable as possible. Medications were used to bring your condition under control and your discharge instructions will include directions for any medications you should take after leaving the hospital. Please make sure you see your Primary Care Provider as part of your follow up plan. Activity: Resume your previous activity Non-emergency contact: Primary Care Provider Call non-emergency contact if: you have any medication questions, your symptoms worsen and your pain is concerning for you Follow-up/Referrals: Jhonatan Oviedo CRNP [Primary Care Provider] - Serge Irwin DO [Surgeon] - Diet: Heart Healthy Addtl Attending Provider Instructions: You have been hospitalized for chest pain. EKG is stable. Troponin levels (measure of damage to heart muscle/tissue) have been significantly improved and not elevated compared to earlier this month. I suspect a combination of things are contributing to your symptoms. You can be having some increased reflux, and you can have your Protonix increased to twice daily for the meantime, and may benefit from just taking this in the evening before supper to prevent episodes the following morning. It is recommended to STOP smoking/chewing tobacco if using any as this can make all of your other issues worse, and increased gastritis, which can be a cause of upper abdominal pain. You can also have some weakness of abdominal muscles from prior belly surgeries and if a piece of bowel is protruding and unable to be pushed back in, or b ecomes hot/red, this can get stuck and would be an emergency. It is recommended you would follow up with PCP for continued monitoring and you can consider following up with general surgery if ongoing issues. Regarding a possible musculoskeletal component, you have had noted cervical narrowing on imaging since 2019, and is likely worsening, however given stability on exam/no focal weakness, we can defer imaging to outpatient setting at this time and try medical management. This was likely worsened by chopping wood this weekend and I would recommend you avoiding doing this for the short term. It may not be a bad idea to have evaluation by Dr Irwin from [facility] int he future for surgical correction if medical therapy is ineffective but they can also try steroids in the future as well. We have started Lyrica given issues with gabapentin in the past and you have been sent 25mg daily and this can be increased as tolerated if effective for pain control. We tried 50mg, but this may be too much. If you are unable to tolerate the 25mg dose, your primary care provider can trial a steroid dose pack as well. Given your recent heart attack earlier this year, as discussed, it would be beneficial to wait at least a year for any kind of elective surgery. I did also sent sublingual nitroglycerin which can be taken every 5 minutes for chest pain. Please report to the nearest emergency department for pain not relieved with such. Please follow up with primary care in the next 7-10 days to monitor your status. We would also like you to follow up with Dony Schmitt from cardiology for continued monitoring. Please return to the ER with any worsening pain, shortness of breath, fever, or for any other symptoms concerning for you. It has been a pleasure being a part of the medical team providing for you while you have been in the hospital. Take care! Pending Studies at Discharge: No Stand-Alone Forms: [email or web address], Work/School Release, Smoking Cessation Medications and DC Order Prescriptions: New diclofenac sodium [Voltaren Arthritis Pain] 1 % Gel 4 g EXT QID Qty: 100 0RF nitroglycerin [Nitrostat] 0.4 mg Tablet, Sublingual 0.4 mg sublingual Q5M PRN (Reason: chest pain) Qty: 14 0RF pregabalin 25 mg capsule 25 mg PO DAILY Qty: 30 0RF Continued metoprolol succinate 50 mg tablet extended release 24 hr 50 mg PO PM Qty: 90 1RF rosuvastatin [Crestor] 20 mg tablet 20 mg PO DAILY Qty: 90 1RF levothyroxine [Tirosint] 112 mcg capsule 112 mcg PO DAILY Qty: 90 1RF clopidogrel 75 mg tablet 75 mg PO DAILY Qty: 90 3RF lisinopril 5 mg tablet 5 mg PO DAILY Qty: 90 3RF aspirin 81 mg capsule 81 mg PO DAILY Qty: 30 0RF Changed pantoprazole 40 mg tablet,delayed release (DR/EC) 40 mg PO BID 30 Days Qty: 60 1RF Discharge Orders: Discharge Order (Routine); Ordered 06/07/23 Ordered By: Amaya Arenas Admission Data Admit Date/Time: 06/07/23 00:35 Attending Provider: Lukas Harrison Admit Provider: Maren York Primary Care Provider: Jhonatan Oviedo Other Providers: Maren York Other Interventions: Discharge Summary Assessment (RN) Last Done: 06/07/23 16:43 Supervising Physician Co-Signing Physician Notes The patient was seen by me. The chart was reviewed. Case discussed with MARÍA Hodges. Agree with assessment and plan. He was discharged to home on June 07 Coding Level of Care Code INP/OBS EV SAME DAY LV 3,85MIN Diagnoses Chest pain R07.9 CAD (coronary artery disease) I25.10 Hyperlipidemia E78.5 Hypothyroidism E03.9 GERD (gastroesophageal reflux disease) K21.9 Hypertension I10
[2023-06-07] MEDS ORDERED: DICLOFENAC SOD 1% GEL 100 GM TUBE EXT SCH (17:00)
[2023-06-07] MEDS ORDERED: METOPROLOL SUCC 50MG EXT REL TAB PO SCH (21:00)
== END 2023-06-07 17:30 | disposition home or self-care (01) ==
LOC: 2W 20:53 → ED 20:53 → SUATTDRO 06-07 00:35 → 2W 06-07 01:57